=== PATIENT | male | born 1935 | race Caucasian/White ===

== ENCOUNTER → 2017-09-21 | Outpatient (REF) | payer MEDICARE, OTHER ==
[~2017-09-21] MED LIST: ACE325 PO; ADV500/50 INH; ALB0.5 INH; ALB18R INH; AMIT-104 PO; AMLO-101 PO; AMLO-99 PO; ASPI-1471 PO; ASPI-715 PO; AZIT-1 PO; AZIT-17 PO; BEN10 PO; BENA40TA51 PO; BLOO-1061 MC; BLOO-292 MC; CEF300 PO; CEFU250 PO; COM14R INH; DIPH-740 PO; FEXO-67 PO; FEXO30TA36 PO; FLU100 PO; FLUC100T35 PO; FLUR IH; FLUT1DIS29 IH; GABA-547 PO; GABA-549 PO; GLIM2TAB43 PO; GLIM4TAB50 PO; GUAI600T57 PO; GUALA600 PO; H2O24 TOP; HYDR12.558 PO; IPRA3AMP21 IH; LEV500 PO; LOR5/325 PO; LOSA-57 PO; MECL25TA9 PO; METF-420 PO; METXR500 PO; PIR14R INH; PIRB14AE3 IH; PRE10 PO; PRE20 PO; PRED20TA6 PO; ROBC PO; SAL50R PO; SIMV-49 PO; SITA1TAB13 PO; ZOL5 PO; [UNRECOGNIZED DRUG - CODE] PO
== END ==
LOC: ZZSENDIN 14:41
PROVIDERS: ATTEND Family Medicine
DX: Z01.812 Encounter for preprocedural laboratory examination (principal)
CPT/HCPCS: 81001

== ENCOUNTER 2017-10-12 01:10 | Inpatient (IN) | payer MEDICARE, OTHER ==
[2017-10-12] VITALS (10 sets, daily range): BP systolic 119–159; BP diastolic 71–89
[~2017-10-12] VITALS: Ht 180.3 cm; Wt 77.7 kg
[~2017-10-12 01:10] MED LIST changes: +NOR10 PO
[2017-10-12] MEDS ORDERED: THROMBIN (BOVINE) 20,000 UNIT VIAL ONE ×2 (06:26→14:40)
[2017-10-12] MEDS ORDERED: LIDOCAINE/SOD BICARB 8.4% SYR ID ONE (09:10)
[2017-10-12] MEDS ORDERED: FAMOTIDINE 20 MG TAB PO ONE (09:10)
[2017-10-12] MEDS ORDERED: MIDAZOLAM 2 MG/2 ML VIAL IVP PRN (09:10)
[2017-10-12] MEDS ORDERED: NORMOSOL R SOLN(*) 1000 ML BAG 1,000 ML IV PRN (09:10)
[2017-10-12] MEDS ORDERED: CLINDAMYCIN(*) 900 MG/NS 50 ML 50 ML IVPB ONE (09:10)
[2017-10-12] MEDS ORDERED: ONDANSETRON 4 MG/2 ML VIAL ONE (13:16)
[2017-10-12] MEDS ORDERED: MIDAZOLAM 2 MG/2 ML VIAL ONE (13:16)
[2017-10-12] MEDS ORDERED: ROCURONIUM BROM 10 MG/ML 10 ML ONE (13:16)
[2017-10-12] MEDS ORDERED: DEXAMETHASONE SOD PHOS 10MG/ML ONE (13:16)
[2017-10-12] MEDS ORDERED: PROPOFOL EMUL(*) 10MG/ML 20 ML 20 ML ONE (13:16)
[2017-10-12] MEDS ORDERED: LIDOCAINE MPF 1% 5 ML VIAL ONE (13:16)
[2017-10-12] MEDS ORDERED: fentaNYL CITR 100 MCG/2 ML AMP ONE ×4 (13:16→18:56)
[2017-10-12] MEDS ORDERED: ALBUTEROL/IPRATROPIUM 3 ML NEB ONE ×2 (13:22→18:34)
[2017-10-12] MEDS ORDERED: BUPIVACAIN 0.25% INJ 50ML VIAL ONE (14:38)
[2017-10-12] MEDS ORDERED: HYDROCORTISONE 100 MG/2 ML IVP ONE (15:30)
--- NOTE | 2017-10-12 16:58 | RADIOLOGY IMAGING REPORT ---
[place] [facility] [place]IENT NAME: Ever Teixeira : 1935 MR: [id number] V: [id number] EXAM DATE: ORDERING PHYSICIAN: JULI HANEY TECHNOLOGIST: Location: [facility] Patient: Ever Teixeira : 1935 Visit/Account:[id number] Date of Sevice: 10/12/2017 Exam type: LUMBAR SPINE 1 VIEW History: L2-5 LAMINECTOMIES Comparison: MR lumbar spine August 29, 2017 Findings: A single lateral intraoperative view of the lumbar spine was submitted for interpretation. There is at least moderate disc space narrowing from L2 to S1. Metallic probe projects over the posterior spi nous process of L4. Ray-Shamika sponge markers project over the dorsal soft tissues lower lumbar spine o n this intraoperative study IMPRESSION: 1. As above Report Dictated By: Verna Apodaca MD at 10/12/2017 4:53 PM Report E-Signed By: Verna Apodaca MD at 10/12/2017 4:55 PM WSN:[id number]
[2017-10-12] MEDS ORDERED: SUGAMMADEX SOD 200 MG/2 ML SDV ONE (18:23)
[2017-10-12] MEDS ORDERED: HYDROmorphone HCL 2 MG/ML SDV ONE (18:56)
[2017-10-12] MEDS ORDERED: ACETAMINOPHEN 500 MG TAB PO PRN ×2 (19:20→22:00)
[2017-10-12] MEDS ORDERED: MAGNESIUM HYDROXIDE* 30ML UDCP PO PRN (19:20)
[2017-10-12] MEDS ORDERED: ACETAMINOPHEN(*)1000 MG/100 ML 100 ML IVPB PRN ×2 (19:20→22:00)
[2017-10-12] MEDS ORDERED: LR(*) 1000 ML BAG 1,000 ML IV PRN (19:20)
[2017-10-12] MEDS ORDERED: diphenhydrAMINE 25 MG CAP PO PRN (19:20)
[2017-10-12] MEDS ORDERED: ONDANSETRON 4 MG/2 ML VIAL IVP PRN (19:20)
[2017-10-12] MEDS ORDERED: FLUSH 10 ML SYR IVP PRN (19:20)
[2017-10-12] MEDS ORDERED: BISACODYL 10 MG SUPP PR PRN (19:20)
--- NOTE | 2017-10-12 21:32 | Hospitalist Progress Note ---
Subjective Progress Notes Subjective Patient seen post-op. Reviewed PMHx (HTN, COPD, type 2 DM) and medications. At present he reports pain in surgical site. He denies any dyspnea/CP. Physical Exam Vital Signs Date Time Temp Pulse Resp B/P (MAP) Pulse Ox O2 Delivery O2 Flow Rate FiO2 10/12/17 19:44 81 16 94 10/12/17 18:37 Nasal Cannula 8.0 10/12/17 12:49 98.0 159/87 (111) Intake and Output 10/13/17 07:01 Intake Total 1300 ml Output Total 50 ml Balance 1250 ml Intake IV Total 1300 ml Output Estimated Blood Loss 50 ml General Appearance: Alert, Awake Cardiovascular: Regular Rate and Rhythm Respiratory: Clear to Auscultation (a few scattered rhonchi) Item Value Date Time Whole Blood Glucose 163 mg/DL H 10/12/17 1324 Assessment and Plan Problems: (1) Type 2 diabetes mellitus Status: Chronic Assessment & Plan: Will place on ADA diet, resume his metformin and glimepiride , monitor glucoses, and use SSI as needed. (2) COPD (chronic obstructive pulmonary disease) Status: Chronic Assessment & Plan: Continue his Advair and albuterol. (3) Essential hypertension Status: Chronic Assessment & Plan: Monitor BPs and resume his amlodipine, losartan, HCTZ as needed. RHONDA JONES MD Oct 12, 2017 21:32
[2017-10-12] MEDS ORDERED: ALBUTEROL SULFATE 90 MCG/ACT 8.5 GM HNH INH PRN (21:35)
[2017-10-12] MEDS ORDERED: INSULIN HUM LISPRO 100 UN/ML 3 ML VIAL SUBQ ONE (21:56)
[2017-10-12] MEDS: DOCUSATE SODIUM 100 MG CAP PO SCH (22:04)
[2017-10-12] MEDS: INSULIN HUM LISPRO 100 UN/ML 3 ML VIAL SUBQ PRN (22:07)
[2017-10-12] MEDS: APAP/HYDROCODONE 325/5 TAB PO PRN (23:02)
[2017-10-12] MEDS: CLINDAMYCIN(*) 900 MG/NS 50 ML 50 ML IVPB SCH (23:02)
[2017-10-12] MEDS ORDERED: CLINDAMYCIN 900 MG/6 ML 900 MG in DEXTROSE 5% 50 ML BAG 50 ML IVPB SCH (23:30)
[2017-10-13] VITALS (11 sets, daily range): BP systolic 126–165; BP diastolic 66–93; BMI 23.9
[2017-10-13] MEDS: HYDROmorphone HCL 2 MG/ML SDV IVP PRN ×3 (02:15→23:58)
[2017-10-13] MEDS: BENZOCAINE/MENTHOL 1 EACH LOZG PO PRN ×2 (03:53→19:55)
[2017-10-13] MEDS: ALBUTEROL/IPRATROPIUM 3 ML NEB NEB SCH ×3 (04:10→16:57)
[2017-10-13] MEDS: SALMETEROL/FLUTIC 500/50 1 INH INH SCH ×2 (04:10→16:57)
[2017-10-13] MEDS ORDERED: ALBUTEROL SULFATE 90 MCG/ACT 8.5 GM HNH INH PRN (07:15)
[2017-10-13] MEDS: DOCUSATE SODIUM 100 MG CAP PO SCH ×4 (08:29→21:23)
[2017-10-13] MEDS: GABAPENTIN 300 MG CAP PO SCH ×3 (08:29→21:23)
[2017-10-13] MEDS: GLIMEPIRIDE 2 MG TAB PO SCH (08:29)
[2017-10-13] MEDS: HYDROCHLOROTHIAZIDE 25 MG TAB PO SCH (08:30)
[2017-10-13] MEDS: amLODIPine BESYL(*) 5 MG TAB PO SCH (08:30)
[2017-10-13] MEDS: LOSARTAN POTASSIUM 50 MG TAB PO SCH (08:30)
[2017-10-13] MEDS: INSULIN HUM LISPRO 100 UN/ML 3 ML VIAL SUBQ PRN ×4 (08:30→21:25)
[2017-10-13] MEDS: CLINDAMYCIN(*) 900 MG/NS 50 ML 50 ML IVPB SCH ×2 (08:42→15:41)
[2017-10-13] MEDS ORDERED: metFORMIN HCL 500 MG TAB PO SCH (10:30)
--- NOTE | 2017-10-13 14:31 | Hospitalist Progress Note ---
Subjective Progress Notes Subjective Mr. Teixeira is an 82 y.o. male with PMHx of HTN, COPD, type 2 DM, Spinal stenosis and medications reviewed. He underwent spinal surgery by Dr. Cabezas. He tolerated the surgical procedure and anesthesia well. He received PT today and he ambulated well with minimal pain. He lives alone 25 miles away and he is concerned about being d/c'd in am. Patient Complains of: Neurological: Weakness, No: Confusion, Dizziness, Slurred Speech Cardiovascular: No: Chest Pain, Palpitations Respiratory: No: Cough, Congestion, Shortness of Breath, Wheezing Gastrointestinal: No Nausea, No Vomiting Genitourinary: No Dysuria, No Hematuria Musculoskeletal: Pain, No: Sprain, Strain, Impaired Mobility Physical Exam Vital Signs Date Time Temp Pulse Resp B/P (MAP) Pulse Ox O2 Delivery O2 Flow Rate FiO2 10/13/17 11:17 98.6 76 16 130/73 (92) 93 Nasal Cannula 2.0 Intake and Output 10/14/17 07:00 Intake Total 480 ml Balance 480 ml Intake Oral 480 ml # Voids 2 General Appearance: Alert, Awake, No Acute Distress Neuro: No Gross deficits Eyes: PERRLA ENT: Normal Neck: No Masses Cardiovascular: Regular Rate and Rhythm Respiratory: No Respiratory Distress GI: Soft and Non-Tender Extremities: Soft and Non Tender Integumentary: Skin Intact without Lesion / Mass Psych: Alert & Oriented X3, Appropriate Mood & Affect Assessment and Plan Problems: (1) Type 2 diabetes mellitus Status: Chronic Assessment & Plan: Will place on ADA diet, resume his metformin and glimepiride , monitor glucoses, and use SSI as needed. 10/13: His BS was high this am 218. He has received steroids and that could be the reason for his high BS. I will change his Sliding scale to step2 and keep his Metformin ER 1gm at hs. He has h/o hypoglycemia with high Metformin dose. Anticipated d/c in am but patient is concerned about going home soon. (2) COPD (chronic obstructive pulmonary disease) Status: Chronic Assessment & Plan: Continue his Advair and albuterol. (3) Essential hypertension Status: Chronic Assessment & Plan: Monitor BPs and resume his amlodipine, losartan, HCTZ as needed. Time Spent on Plan of Care: < 30 min Copies to: JULI CABEZAS MD; QUANG DENISE DO Exam Sepsis Risk: No Definite Risk DANA ARNOLD MD Oct 13, 2017 14:31
[2017-10-13] MEDS: ALBUTEROL 2.5 MG/3 ML NEB NEB PRN (20:10)
[2017-10-13] MEDS: metFORMIN HCL XR 500 MG TABCR PO SCH ×2 (21:00→21:24)
[2017-10-13] MEDS: NORTRIPTYLINE HCL 10 MG CAP PO SCH (21:23)
[2017-10-13] MEDS ORDERED: DOCUSATE SODIUM 100 MG CAP PO ONE (21:36)
[2017-10-14] MEDS: BENZOCAINE/MENTHOL 1 EACH LOZG PO PRN ×2 (00:01→22:58)
[2017-10-14 05:37] VITALS: BP 169/84
[2017-10-14] MEDS: SALMETEROL/FLUTIC 500/50 1 INH INH SCH ×2 (05:40→17:04)
[2017-10-14] MEDS: ALBUTEROL/IPRATROPIUM 3 ML NEB NEB SCH ×3 (05:40→17:04)
[2017-10-14] MEDS: APAP/HYDROCODONE 325/5 TAB PO PRN ×3 (05:47→16:17)
[2017-10-14 07:44] VITALS: BP 149/71
[2017-10-14] MEDS: INSULIN HUM LISPRO 100 UN/ML 3 ML VIAL SUBQ PRN ×3 (08:12→20:53)
[2017-10-14] MEDS: GLIMEPIRIDE 2 MG TAB PO SCH (08:54)
[2017-10-14] MEDS: LOSARTAN POTASSIUM 50 MG TAB PO SCH (08:54)
[2017-10-14] MEDS: GABAPENTIN 300 MG CAP PO SCH ×3 (08:54→20:39)
[2017-10-14] MEDS: HYDROCHLOROTHIAZIDE 25 MG TAB PO SCH (08:54)
[2017-10-14] MEDS: DOCUSATE SODIUM 100 MG CAP PO SCH ×2 (08:55→20:39)
[2017-10-14] MEDS: amLODIPine BESYL(*) 5 MG TAB PO SCH (08:55)
--- NOTE | 2017-10-14 13:27 | RADIOLOGY IMAGING REPORT ---
FACILITY: [facility] - [place] PATIENT NAME: Ever Teixeira : 1935 MR: [id number] V: [id number] EXAM DATE: ORDERING PHYSICIAN: JULI HANEY TECHNOLOGIST: Location: [facility] Patient: Ever Teixeira : 1935 Visit/Account:[id number] Date of Sevice: 10/14/2017 EXAMINATION: MRI lumbar spine without IV contrast HISTORY: Right leg numb and weak postop. Surgery 2 days ago. COMPARISON: Lumbar spine MRI from 08/29/2017. TECHNIQUE: Multi-planar, multi-sequence lumbar spine MRI was performed without intravenous contrast administration. FINDINGS: Alignment: Mild leftward curvature of the lumbar spine. Grade 1 anterolisthesis at L4-5 measuring 4 mm is unchanged. Vertebral marrow signal: Mild degenerative endplate changes and a few small Schmorl's nodes. Distal thoracic cord: Negative. Conus: negative, terminates at the mid L1 level. Cauda equina: Negative. Paravertebral soft tissues: Postoperative changes from L2 through L4 in the posterior soft tissues. Visualized abdominal and pelvic structures: There is a right renal cyst partly visualized. There may be an internal septation versus adjacent cyst, this is incompletely visualized. Disc spaces: There is disc desiccation of the visualized spine. Lower thoracic spine: Normal. L1-2: Minimal concentric disc bulge and bilateral facet hypertrophy without significant central canal or foraminal stenosis, unchanged. L2-3: Partial bilateral L2 laminectomies are new. Mild disc space narrowing with a mild disc bulge e ccentric to the left. Central canal stenosis has resolved. Mild right and moderate to severe left f oraminal stenosis is unchanged. L3-4: Bilateral L3 laminectomies are new. There is disc space narrowing with a moderate concentric d isc bulge and superimposed right paracentral disc extrusion with superior extension. Bilateral facet hypertrophy. The right facet synovial cyst has been resected. There is patchy fluid in the laminec henna bed and right posterior epidural region which contributes to residual moderate to severe central canal stenosis. Mild bilateral lateral recess stenosis, moderate left and severe right foraminal st enosis are unchanged. L4-5: Bilateral L4 laminectomies are new. Mild disc space narrowing with a moderate disc bulge eccen tric to the right and bilateral facet hypertrophy. Ill-defined fluid in the laminectomy bed. Centra l canal stenosis is improved. There is mild residual bilateral lateral recess stenosis, mild left an d moderate to severe right foraminal stenosis are unchanged. L5-S1: Disc space narrowing with posterior bony spurring and a mild disc bulge eccentric to the left. Bilateral facet hypertrophy. Mild right and moderate left foraminal stenosis without significant c entral canal stenosis, unchanged. IMPRESSION: 1. Posterior decompression from L2 through L4. Patchy fluid in the laminectomy bed at the L3 and L4 levels is likely postoperative seroma and/or hematoma, and contributes to residual moderate to sever e spinal stenosis at the L3-4 level. No residual spinal stenosis at L2-3 or L4-5. 2. Degenerative disc disease and facet arthropathy is otherwise unchanged. 3. Mild degenerative levoscoliosis of the lumbar spine and grade 1 degenerative anterolisthesis at L 4-5 measuring 4 mm, unchanged. 4. Potential complex right renal cyst versus 2 adjacent cysts, incompletely visualized. Renal ultra sound is recommended for further evaluation. Report Dictated By: Arlene Trujillo MD at 10/14/2017 12:18 PM Report E-Signed By: Arlene Trujillo MD at 10/14/2017 1:24 PM WSN:[id number]
[2017-10-14 15:04] VITALS: BP 118/77
--- NOTE | 2017-10-14 16:23 | Hospitalist Progress Note ---
Subjective Progress Notes Subjective Mr. Teixeira is an 82 y.o. male with PMHx of HTN, COPD, type 2 DM, Spinal stenosis and medications reviewed. He underwent spinal surgery by Dr. Cabezas. He tolerated the surgical procedure and anesthesia well. He received PT today and he ambulated well with minimal pain. He lives alone 25 miles away and he is concerned about being d/c'd in am. 10/14: Patient developed low grade fever and he was scheduled to have lumber spine MRI to evaluate ant hematoma or compression of his nerve because he c/o numbness in his leg. He was evaluated by Dr. Cabezas and obtained MRI and kept the patient for inpatient status. Patient Complains of: Neurological: Weakness, No: Dizziness Cardiovascular: No: Chest Pain, Palpitations Respiratory: No: Cough, Shortness of Breath Gastrointestinal: No Nausea, No Vomiting Genitourinary: No Dysuria, No Hematuria Musculoskeletal: Pain, Impaired Mobility, No: Sprain, Strain Physical Exam Vital Signs Date Time Temp Pulse Resp B/P (MAP) Pulse Ox O2 Delivery O2 Flow Rate FiO2 10/14/17 15:20 84 10/14/17 15:10 Nasal Cannula 1.0 10/14/17 15:04 98.1 99 12 118/77 (91) Intake and Output 10/15/17 07:00 Intake Total 160 ml Balance 160 ml Intake Oral 160 ml General Appearance: Alert, Awake, No Acute Distress, Other (low grade fever) Neuro: No Gross deficits Eyes: PERRLA ENT: Normal Cardiovascular: Regular Rate and Rhythm Respiratory: No Respiratory Distress GI: Soft and Non-Tender Extremities: Soft and Non Tender Psych: Alert & Oriented X3 Assessment and Plan Problems: (1) Low grade fever Status: Acute Assessment & Plan: He revealed L3-4 area with hematoma/seroma causing moderate to severe stenosis. his low grade fever could be due to his inflammatory process at L3-4 level I will watch closely and get CBC in am and BMP (2) Type 2 diabetes mellitus Status: Chronic Assessment & Plan: Will place on ADA diet, resume his metformin and glimepiride , monitor glucoses, and use SSI as needed. 10/13: His BS was high this am 218. He has received steroids and that could be the reason for his high BS. I will change his Sliding scale to step2 and keep his Metformin ER 1gm at hs. He has h/o hypoglycemia with high Metformin dose. Anticipated d/c in am but patient is concerned about going home soon. 2/2: His BS is in 160's and I will continue his present management (3) COPD (chronic obstructive pulmonary disease) Status: Chronic Assessment & Plan: Continue his Advair and albuterol. 2/2: I will continue the same management (4) Essential hypertension Status: Chronic Assessment & Plan: Monitor BPs and resume his amlodipine, losartan, HCTZ as needed. 2/2: I will continue the same management (5) S/P laminectomy Status: Acute Assessment & Plan: He tolerated the procedure but he still c/o numbness in his legtoday. He was evaluated by Dr. Cabezas and MRI of L-spine was done and revealed hematoma/seroma compressing at L3-4. He couls have low grade fever from mild inflammation. Time Spent on Plan of Care: < 30 min Copies to: JULI CABEZAS MD; QUANG DENISE DO Exam Sepsis Risk: No Definite Risk DANA ARNOLD MD Oct 14, 2017 16:23
[2017-10-14] MEDS ORDERED: MAGNESIUM HYDROXIDE* 30ML UDCP PO PRN (17:10)
[2017-10-14 19:25] VITALS: BP 103/68
[2017-10-14] MEDS: NORTRIPTYLINE HCL 10 MG CAP PO SCH (20:39)
[2017-10-14] MEDS: oxyCODONE HCL 5 MG CAP PO PRN (20:39)
[2017-10-14] MEDS: metFORMIN HCL XR 500 MG TABCR PO SCH ×2 (20:40→20:46)
[2017-10-14] MEDS: ALBUTEROL 2.5 MG/3 ML NEB NEB PRN (20:57)
[2017-10-14 22:51] VITALS: BP 165/89
[2017-10-14] MEDS: HYDROmorphone HCL 2 MG/ML SDV IVP PRN (22:58)
[2017-10-15] MEDS: APAP/HYDROCODONE 325/5 TAB PO PRN ×4 (03:00→22:29)
[2017-10-15 03:03] VITALS: BP 146/69
[2017-10-15] MEDS: ALBUTEROL 2.5 MG/3 ML NEB NEB PRN (03:10)
[2017-10-15] MEDS: ALBUTEROL/IPRATROPIUM 3 ML NEB NEB SCH ×3 (05:16→17:06)
[2017-10-15] MEDS: SALMETEROL/FLUTIC 500/50 1 INH INH SCH ×2 (05:16→17:06)
[2017-10-15 05:51] LABS: PLATELET COUNT, AUTOMATED 238 K/uL (150-450)
[2017-10-15 08:25] VITALS: BP 137/72
[2017-10-15] MEDS: LOSARTAN POTASSIUM 50 MG TAB PO SCH (09:00)
[2017-10-15] MEDS: amLODIPine BESYL(*) 5 MG TAB PO SCH (09:00)
[2017-10-15] MEDS: HYDROCHLOROTHIAZIDE 25 MG TAB PO SCH (09:07)
[2017-10-15] MEDS: GLIMEPIRIDE 2 MG TAB PO SCH (09:07)
[2017-10-15] MEDS: DIAZEPAM 5 MG TAB PO PRN ×2 (09:07→17:33)
[2017-10-15] MEDS: oxyCODONE HCL 5 MG CAP PO PRN (09:07)
[2017-10-15] MEDS: DOCUSATE SODIUM 100 MG CAP PO SCH ×2 (09:08→21:35)
[2017-10-15] MEDS: GABAPENTIN 300 MG CAP PO SCH ×3 (09:09→21:35)
--- NOTE | 2017-10-15 09:56 | Hospitalist Progress Note ---
Subjective Progress Notes Subjective This patient was admitted for lumbar surgery. He had no acute events overnight. Patient Complains of: Cardiovascular: No: Chest Pain Respiratory: No: Shortness of Breath Physical Exam Vital Signs Date Time Temp Pulse Resp B/P (MAP) Pulse Ox O2 Delivery O2 Flow Rate FiO2 10/15/17 08:25 98.2 99 16 137/72 (93) 90 Nasal Cannula 2.0 Intake and Output 10/16/17 07:00 Intake Total 460 ml Balance 460 ml Intake Oral 460 ml # Voids 1 Cardiovascular: Regular Rate and Rhythm Respiratory: Clear to Auscultation Result Diagram: 10/15/17 0537 10/15/1737 Assessment and Plan Problems: (1) Low grade fever Status: Acute Assessment & Plan: He had an isolated fever yesterday. A CT scan showed a seroma around his surgical site. His WBC is normal. (2) Type 2 diabetes mellitus Status: Chronic Assessment & Plan: He is on chronic treatment with metformin and glyburide. We have also had him on sliding scale level #2. (3) COPD (chronic obstructive pulmonary disease) Status: Chronic Assessment & Plan: He is on chronic treatment with Advair and albuterol. (4) Essential hypertension Status: Chronic Assessment & Plan: He is on chronic treatment with amlodipine, losartan, and hydrochlorothiazide. Exam Sepsis Risk: No Definite Risk DESIRAE YIN DO Oct 15, 2017 09:56
[2017-10-15] MEDS: methylPREDNIS 4 MG TAB PO SCH ×4 (10:58→21:35)
[2017-10-15] MEDS: INSULIN HUM LISPRO 100 UN/ML 3 ML VIAL SUBQ PRN ×3 (12:11→21:37)
[2017-10-15] MEDS ORDERED: SALINE 0.65% NAS SPR 44 ML BTL ONE (14:17)
[2017-10-15 14:22] VITALS: BP 110/62
[2017-10-15 19:31] VITALS: BP 137/77
[2017-10-15 20:17] VITALS: Ht 180.3 cm; Wt 77.7 kg
[2017-10-15] MEDS: NORTRIPTYLINE HCL 10 MG CAP PO SCH (21:35)
[2017-10-15] MEDS: metFORMIN HCL XR 500 MG TABCR PO SCH (21:36)
[2017-10-15 22:36] VITALS: BP 154/70
[2017-10-16] MEDS: APAP/HYDROCODONE 325/5 TAB PO PRN ×3 (02:29→20:16)
[2017-10-16] MEDS: DIAZEPAM 5 MG TAB PO PRN ×3 (02:29→20:17)
[2017-10-16 02:33] VITALS: BP 138/81
[2017-10-16] MEDS: ALBUTEROL/IPRATROPIUM 3 ML NEB NEB SCH ×3 (04:07→19:24)
[2017-10-16] MEDS: SALMETEROL/FLUTIC 500/50 1 INH INH SCH ×2 (04:08→19:24)
[2017-10-16] MEDS: HYDROCHLOROTHIAZIDE 25 MG TAB PO SCH (08:58)
[2017-10-16] MEDS: GABAPENTIN 300 MG CAP PO SCH ×3 (08:58→20:17)
--- NOTE | 2017-10-16 08:58 | Hospitalist Progress Note ---
Subjective Progress Notes Subjective No cp/sob, currently. He got a breathing treatment this morning that helped him cough up some mucus. Physical Exam Vital Signs Date Time Temp Pulse Resp B/P (MAP) Pulse Ox O2 Delivery O2 Flow Rate FiO2 10/16/17 04:09 98 10/16/17 04:09 Nasal Cannula 1.0 10/16/17 04:08 93 10/16/17 04:08 16 10/16/17 02:33 98.5 138/81 (100) General Appearance: Alert, Awake, No Acute Distress Cardiovascular: Regular Rate and Rhythm Respiratory: Clear to Auscultation Result Diagram: 10/15/1753610/15/17536 Assessment and Plan Problems: (1) Type 2 diabetes mellitus Status: Chronic Assessment & Plan: He is on chronic treatment with metformin and glyburide. We have also had him on sliding scale level #2. Glucose ranging from 161-272, but mostly below 200. (2) Low grade fever Status: Resolved Assessment & Plan: He had an isolated fever on 10/14. A CT scan showed a seroma around his surgical site. His WBC is normal. (3) COPD (chronic obstructive pulmonary disease) Status: Chronic Assessment & Plan: He is on chronic treatment with Advair and albuterol. (4) Essential hypertension Status: Chronic Assessment & Plan: He is on chronic treatment with amlodipine, losartan, and hydrochlorothiazide. Exam Sepsis Risk: No Definite Risk MARGARITO SUH MD Oct 16, 2017 08:58
[2017-10-16 09:00] VITALS: BP 133/85
[2017-10-16] MEDS ORDERED: methylPREDNIS 4 MG TAB PO SCH ×2 (09:00→21:00)
[2017-10-16] MEDS: LOSARTAN POTASSIUM 50 MG TAB PO SCH (09:00)
[2017-10-16] MEDS: DOCUSATE SODIUM 100 MG CAP PO SCH ×2 (09:00→20:16)
[2017-10-16] MEDS: amLODIPine BESYL(*) 5 MG TAB PO SCH (09:00)
[2017-10-16] MEDS: GLIMEPIRIDE 2 MG TAB PO SCH (09:00)
[2017-10-16] MEDS: INSULIN HUM LISPRO 100 UN/ML 3 ML VIAL SUBQ PRN ×4 (09:03→20:06)
[2017-10-16] MEDS: POLYETHYLENE GLYCOL 17 GM PKT PO SCH (10:30)
[2017-10-16] MEDS: methylPREDNIS 4 MG TAB PO SCH ×2 (12:44→17:25)
[2017-10-16 15:01] VITALS: BP 133/77
[2017-10-16 20:08] VITALS: BP 135/67
[2017-10-16] MEDS: metFORMIN HCL XR 500 MG TABCR PO SCH (20:18)
[2017-10-16] MEDS: NORTRIPTYLINE HCL 10 MG CAP PO SCH (20:19)
[2017-10-16] MEDS: oxyCODONE HCL 5 MG CAP PO PRN (22:52)
[2017-10-17] MEDS: APAP/HYDROCODONE 325/5 TAB PO PRN ×2 (00:57→11:20)
[2017-10-17] MEDS: ALBUTEROL/IPRATROPIUM 3 ML NEB NEB SCH ×2 (05:10→10:17)
[2017-10-17] MEDS: SALMETEROL/FLUTIC 500/50 1 INH INH SCH (05:10)
[2017-10-17 07:53] VITALS: BP 154/74
--- NOTE | 2017-10-17 08:56 | Hospitalist Progress Note ---
Subjective Progress Notes Subjective No current respiratory complaints. Glucoses moderately elevated. Physical Exam Vital Signs Date Time Temp Pulse Resp B/P (MAP) Pulse Ox O2 Delivery O2 Flow Rate FiO2 10/17/17 07:53 97.8 81 16 154/74 (100) 92 Room Air 10/17/17 05:13 1.0 General Appearance: Alert, Awake Cardiovascular: Regular Rate and Rhythm Respiratory: Clear to Auscultation (diminished slightly bilaterally) Extremities: Warm, Perfused Result Diagram: 10/15/17 0537 10/15/17 0537 Item Value Date Time Whole Blood Glucose 248 mg/DL H 10/16/172002 Whole Blood Glucose 278 mg/DL H 10/16/17 1716 Whole Blood Glucose 221 mg/DL H 10/16/17 1201 Whole Blood Glucose 183 mg/DL H 10/16/17 0650 Assessment and Plan Problems: (1) Type 2 diabetes mellitus Status: Chronic Assessment & Plan: He is on chronic treatment with metformin and glyburide. We have also had him on sliding scale level #2. Glucoses moderately elevated due to steroids. This should improve as he is weaned off the Medrol. (2) Low grade fever Status: Resolved Assessment & Plan: He had an isolated fever on 10/14. A CT scan showed a seroma around his surgical site. His WBC is normal. No recurrent fever. (3) COPD (chronic obstructive pulmonary disease) Status: Chronic Assessment & Plan: Appears stable. He is on chronic treatment with Advair and albuterol. (4) Essential hypertension Status: Chronic Assessment & Plan: Adequately controlled. He is on chronic treatment with amlodipine, losartan, and hydrochlorothiazide. Exam Sepsis Risk: No Definite Risk RHONDA JONES MD Oct 17, 2017 08:56
[2017-10-17] MEDS ORDERED: methylPREDNIS 4 MG TAB PO SCH ×2 (09:00→12:00)
[2017-10-17] MEDS: LOSARTAN POTASSIUM 50 MG TAB PO SCH (09:00)
[2017-10-17] MEDS: HYDROCHLOROTHIAZIDE 25 MG TAB PO SCH (09:00)
[2017-10-17] MEDS: POLYETHYLENE GLYCOL 17 GM PKT PO SCH (09:01)
[2017-10-17] MEDS: GLIMEPIRIDE 2 MG TAB PO SCH (09:04)
[2017-10-17] MEDS: amLODIPine BESYL(*) 5 MG TAB PO SCH (09:07)
[2017-10-17] MEDS: GABAPENTIN 300 MG CAP PO SCH (09:08)
[2017-10-17] MEDS: DOCUSATE SODIUM 100 MG CAP PO SCH (09:08)
[2017-10-17] MEDS: INSULIN HUM LISPRO 100 UN/ML 3 ML VIAL SUBQ PRN (09:09)
[2017-10-17] MEDS: DIAZEPAM 5 MG TAB PO PRN (11:20)
[2017-10-18] MEDS ORDERED: methylPREDNIS 4 MG TAB PO SCH ×2 (09:00→12:00)
--- NOTE | 2017-10-18 09:15 | OPERATIVE REPORT 1 ---
EVENT DATE: October 12, 2017 SURGEON: Anule Cabezas MD ANESTHESIOLOGIST: Kalpesh Aguiar MD ANESTHESIA: General endotracheal. SYSTEMS MGR: Eugene Garcia PA-C PREOPERATIVE DIAGNOSIS L2-3, L3-4, L4-5 spinal stenosis. POSTOPERATIVE DIAGNOSIS L2-3, L3-4, L4-5 spinal stenosis. PROCEDURE PERFORMED L2 to L5 laminectomy. IV FLUIDS 1400 mL. ESTIMATED BLOOD LOSS 200 mL. IMPLANTS None. SPECIMENS None. DRAINS None. COMPLICATIONS None. DISPOSITION Post anesthesia care unit. INDICATION FOR SURGERY Mr. Teixeira is an 82-year-old gentleman who presented with significant pain, numbness and tingling down bilateral lower extremities plus significant decrease in walking tolerance and weakness in bilateral lower extremities. His physical examination was essentially normal, but his imaging studies showed severe spinal stenosis at L2-3, L3-4 and L4-5. He had a previous L5-S1 decompression, and there was no significant neural element compression at that level. Secondary to ongoing symptoms, Mr. Teixeira was offered and elected to undergo L2 to L5 laminectomy. Prior to surgery, I explained in detail to the patient the possible risks of surgery, including the risk of , blindness, sexual dysfunction, bleeding, infection, CSF leak, persistent and/or worsening pain, autonomic nervous system dysfunction, sexual dysfunction and other unforeseen medical and surgical complications. He voiced an understanding. DESCRIPTION OF PROCEDURE On the date of surgery, the patient was met in the preoperative hold area, and all questions were answered. Operative site was identified and marked by myself. The patient was then taken in good condition to the operating room, and after succumbing to anesthesia, was placed in the prone position on a Adrien table. He was prepped and draped in a standard sterile orthopedic fashion, taking care to maintain appropriate perfusion pressures during anesthesia and taking care to appropriately pad all bony protuberances and soft tissues in the standard fashion. Preoperative antibiotics were administered according to the appropriate timing schedule, and then a final time out was undertaken by members of the operating team to confirm correct patient, correct levels and correct surgery. An incision was made over the intended spinal levels, and sharp dissection was taken down to the posterior elements. Soft tissues were elevated off the posterior elements in a subperiosteal manner, and intraoperative imaging was used to confirm appropriate spinal level. A Leksell rongeur was used to remove the spinous processes of L2, L3 and L4, and the laminas were then thinned bilaterally using rongeurs. A 2-0 curette was used to undermine the insertion of the ligamentum flavum from the inferior aspect of the L4 lamina. Once we entered the canal, a Webb was used to separate the dura from surrounding bone and soft tissue prior to use of the Kerrison punch. A midline decompression was performed utilizing a 4-0 and 3-0 Kerrison rongeur from the inferior aspect of the L4 lamina to the superior aspect of the L2 lamina. Bilateral lateral recess decompressions were then performed again using 3-0 and 4-0 Kerrison rongeurs until adequate lateral recess decompression was obtained. Bilateral foraminotomies were then performed, again utilizing 3- 0 and 4-0 Kerrison rongeurs to open up the foramina of the L2, L3 and L4 nerve roots. Once we were convinced that an adequate decompression had been achieved , meticulous hemostasis was obtained, and the wound was irrigated with copious sterile saline solution. The wound was then closed in layers using interrupted sutures for the deep fascia, inverted interrupted sutures for the superficial fascia and then a running subcuticular skin stitch. Sponge and instrument counts were correct x 2. Mr. Teixeira will remain in the hospital until he meets discharge criteria, passes physical therapy, etc. He will then follow up in my clinic in two weeks time for wound check and examination. DIONISIO
[2017-10-19] MEDS ORDERED: methylPREDNIS 4 MG TAB PO SCH (09:00)
[2017-10-20] MEDS ORDERED: methylPREDNIS 4 MG TAB PO SCH (09:00)
== END 2017-10-17 11:20 | DRG 516 ==
LOC: OR 01:10 → MED 19:38 → OBSVTOIN 10-14 → INTOOBSV 10-15 07:53 → UNDODISIN 10-17 11:20
PROVIDERS: ADMIT Orthopaedic Surgery; ATTEND Orthopaedic Surgery
PROC: 01NB0ZZ Release Lumbar Nerve, Open Approach (ICD-10-PCS; principal; 2017-10-14)
DX: M48.062 Spinal stenosis, lumbar region with neurogenic claudication (principal); G97.64 Postprocedural seroma of a nervous system organ or structure following other procedure; M43.16 Spondylolisthesis, lumbar region; M54.16 Radiculopathy, lumbar region; M71.38 Other bursal cyst, other site; E11.9 Type 2 diabetes mellitus without complications; E78.5 Hyperlipidemia, unspecified; J44.9 Chronic obstructive pulmonary disease, unspecified; R50.82 Postprocedural fever; I10 Essential (primary) hypertension; Y83.8 Other surgical procedures as the cause of abnormal reaction of the patient, or of later complication, without mention of misadventure at the time of the procedure; Y79.3 Surgical instruments, materials and orthopedic devices (including sutures) associated with adverse incidents; Y92.230 Patient room in hospital as the place of occurrence of the external cause; Z79.4 Long term (current) use of insulin; Z88.0 Allergy status to penicillin
CPT/HCPCS: 36415; 36416; 72020; 72148; 82040; 82247; 82310; 82374; 82435; 82565; 82947; 82948; 84075; 84132; 84155; 84295; 84450; 84460; 84520; 85025; 94640; 94668; 96372; 97162; G0378; J1100; J1170; J1720; J2001; J2250; J2405; J2704; J3010; J3490; J7509; J7613

== ENCOUNTER 2017-10-17 11:20 | Inpatient (IN) | payer MEDICARE, OTHER ==
[2017-10-15 20:17] VITALS: Ht 181.6 cm; Wt 81.6 kg
[~2017-10-17] VITALS: Ht 181.6 cm; Wt 81.6 kg
[2017-10-17 11:30] VITALS: BP 147/77
[2017-10-17] MEDS ORDERED: ACETAMINOPHEN 500 MG TAB PO PRN (11:51)
[2017-10-17] MEDS ORDERED: BISACODYL 10 MG SUPP PR PRN (11:51)
[2017-10-17] MEDS ORDERED: diphenhydrAMINE 25 MG CAP PO PRN (11:51)
[2017-10-17] MEDS ORDERED: BENZOCAINE/MENTHOL 1 EACH LOZG PO PRN (11:51)
[2017-10-17] MEDS ORDERED: methylPREDNIS 4 MG TAB PO SCH (11:51)
[2017-10-17] MEDS ORDERED: ALBUTEROL 2.5 MG/3 ML NEB NEB PRN (11:51)
[2017-10-17] MEDS ORDERED: MAGNESIUM HYDROXIDE* 30ML UDCP PO PRN (11:51)
[2017-10-17] MEDS ORDERED: ALBUTEROL SULFATE 90 MCG/ACT 8.5 GM HNH INH PRN (11:51)
[2017-10-17] MEDS: ALBUTEROL/IPRATROPIUM 3 ML NEB NEB SCH ×2 (12:00→17:32)
[2017-10-17] MEDS: INSULIN HUM LISPRO 100 UN/ML 3 ML VIAL SUBQ PRN ×3 (12:17→21:20)
--- NOTE | 2017-10-17 12:20 | Consultant Pharmacy Review ---
Slip Presser Review Medication Review Do All Mecications have a Diag: Yes Beers Criteria Medication 2015 Anticholinergics exclude TCAs: Diphenhydramine (prn use for itching) Antidepressants: Nortriptyline Benzodiazapines (long acting): Diazepam (prn use for muscle spasms) Sliding Scale Insulin: Slidin Scale Insulin (Diabetes ) Disease-Drug Interactions History of Falls/Fractures: Anticonvulsants, Benzodiazepines, TCAs, Opioids Drugs to Use With Caution Medications Which Cause SIADH: TCAs Other General Cautions Lexicomp Interaction Analysis A = No known interaction C = Monitor therapy X = Avoid combination B = No action needed D = Consider therapy modification Drugs in this analysis: Acetaminophen; Advair Diskus; Amaryl; Bisacodyl; Cepacol (CAN); Cozaar; DiazePAM; DiphenhydrAMINE (Systemic); Docusate Sodium (SYN); HumaLOG; HydroCHLOROthiazide; Lortab; Medrol; MetFORMIN; Milk of Magnesia [OTC] ; MiraLax [OTC]; Neurontin; Norvasc; Oxy.IR (CAN); Pamelor; ProAir HFA * Drug-Drug Interactions D Bisacodyl Milk of Magnesia [OTC] (Antacids) D DiazePAM (BUFFING MACHINE OPERATOR SEMIAUTOMATIC Depressants) Lortab (HYDROcodone) D DiazePAM (BUFFING MACHINE OPERATOR SEMIAUTOMATIC Depressants) Oxy.IR (CAN) (OxyCODONE) D DiphenhydrAMINE (Systemic) (BUFFING MACHINE OPERATOR SEMIAUTOMATIC Depressants) Lortab (HYDROcodone) D DiphenhydrAMINE (Systemic) (BUFFING MACHINE OPERATOR SEMIAUTOMATIC Depressants) Oxy.IR (CAN) (OxyCODONE) D Lortab (BUFFING MACHINE OPERATOR SEMIAUTOMATIC Depressants) Oxy.IR (CAN) (OxyCODONE) D Lortab (HYDROcodone) Neurontin (BUFFING MACHINE OPERATOR SEMIAUTOMATIC Depressants) D Lortab (HYDROcodone) Oxy.IR (CAN) (BUFFING MACHINE OPERATOR SEMIAUTOMATIC Depressants) D Lortab (HYDROcodone) Pamelor (BUFFING MACHINE OPERATOR SEMIAUTOMATIC Depressants) D Medrol (Corticosteroids (Oral)) Milk of Magnesia [OTC] (Antacids) D Milk of Magnesia [OTC] (Antacids) Neurontin (Gabapentin) D Milk of Magnesia [OTC] (Magnesium Salts) Neurontin (Gabapentin) Depends on Route D Neurontin (BUFFING MACHINE OPERATOR SEMIAUTOMATIC Depressants) Oxy.IR (CAN) (OxyCODONE) D Oxy.IR (CAN) (OxyCODONE) Pamelor (BUFFING MACHINE OPERATOR SEMIAUTOMATIC Depressants) C Advair Diskus (Beta2-Agonists) HydroCHLOROthiazide (Thiazide and Thiazide- Like Diuretics) C Advair Diskus (Beta2-Agonists) Pamelor (Tricyclic Antidepressants) C Advair Diskus (Corticosteroids (Orally Inhaled)) HydroCHLOROthiazide ( Thiazide and Thiazide-Like Diuretics) C Advair Diskus (Sympathomimetics) ProAir HFA (Sympathomimetics) C Amaryl (Antidiabetic Agents) HumaLOG (Hypoglycemia-Associated Agents) C Amaryl (Antidiabetic Agents) HydroCHLOROthiazide (Hyperglycemia-Associated Agents) C Amaryl (Antidiabetic Agents) HydroCHLOROthiazide (Thiazide and Thiazide- Like Diuretics) C Amaryl (Antidiabetic Agents) Medrol (Hyperglycemia-Associated Agents) C Amaryl (CYP2C9 Substrates (High risk with Inhibitors)) Cozaar (CYP2C9 Inhibitors (Moderate)) C Amaryl (Hypoglycemia-Associated Agents) HumaLOG (Hypoglycemia-Associated Agents) C Amaryl (Hypoglycemia-Associated Agents) MetFORMIN (Antidiabetic Agents) C Amaryl (Sulfonylureas) Pamelor (Cyclic Antidepressants) C DiazePAM (BUFFING MACHINE OPERATOR SEMIAUTOMATIC Depressants) DiphenhydrAMINE (Systemic) (BUFFING MACHINE OPERATOR SEMIAUTOMATIC Depressants) C DiazePAM (BUFFING MACHINE OPERATOR SEMIAUTOMATIC Depressants) Neurontin (BUFFING MACHINE OPERATOR SEMIAUTOMATIC Depressants) C DiazePAM (BUFFING MACHINE OPERATOR SEMIAUTOMATIC Depressants) Pamelor (BUFFING MACHINE OPERATOR SEMIAUTOMATIC Depressants) C DiphenhydrAMINE (Systemic) (Anticholinergic Agents) HydroCHLOROthiazide ( Thiazide and Thiazide-Like Diuretics) C DiphenhydrAMINE (Systemic) (Anticholinergic Agents) Pamelor ( Anticholinergic Agents) C DiphenhydrAMINE (Systemic) (BUFFING MACHINE OPERATOR SEMIAUTOMATIC Depressants) Neurontin (BUFFING MACHINE OPERATOR SEMIAUTOMATIC Depressants) C DiphenhydrAMINE (Systemic) (BUFFING MACHINE OPERATOR SEMIAUTOMATIC Depressants) Pamelor (BUFFING MACHINE OPERATOR SEMIAUTOMATIC Depressants) C HumaLOG (Antidiabetic Agents) HydroCHLOROthiazide (Hyperglycemia-Associated Agents) C HumaLOG (Antidiabetic Agents) HydroCHLOROthiazide (Thiazide and Thiazide- Like Diuretics) C HumaLOG (Antidiabetic Agents) Medrol (Hyperglycemia-Associated Agents) C HumaLOG (Hypoglycemia-Associated Agents) MetFORMIN (Antidiabetic Agents) C HydroCHLOROthiazide (Diuretics) Lortab (Opioid Analgesics) C HydroCHLOROthiazide (Diuretics) Oxy.IR (CAN) (Opioid Analgesics) C HydroCHLOROthiazide (Hyperglycemia-Associated Agents) MetFORMIN ( Antidiabetic Agents) C HydroCHLOROthiazide (Thiazide and Thiazide-Like Diuretics) Medrol ( Corticosteroids (Systemic)) C HydroCHLOROthiazide (Thiazide and Thiazide-Like Diuretics) MetFORMIN ( Antidiabetic Agents) C HydroCHLOROthiazide (Thiazide and Thiazide-Like Diuretics) Pamelor ( Anticholinergic Agents) C HydroCHLOROthiazide (Thiazide and Thiazide-Like Diuretics) ProAir HFA (Beta2 -Agonists) C Lortab (HYDROcodone) Norvasc (CY Inhibitors (Weak)) Depends on Additional drug/group C Medrol (Hyperglycemia-Associated Agents) MetFORMIN (Antidiabetic Agents) C Milk of Magnesia [OTC] (Magnesium Salts) Norvasc (Calcium Channel Blockers) C Neurontin (BUFFING MACHINE OPERATOR SEMIAUTOMATIC Depressants) Pamelor (BUFFING MACHINE OPERATOR SEMIAUTOMATIC Depressants) C Pamelor (Tricyclic Antidepressants) ProAir HFA (Beta2-Agonists) B Acetaminophen Lortab (Opioid Analgesics) B Acetaminophen Oxy.IR (CAN) (Opioid Analgesics) B Advair Diskus (Beta2-Agonists) Medrol (Corticosteroids) B Advair Diskus (QTc-Prolonging Agents (Indeterminate Risk and Risk Modifying)) DiphenhydrAMINE (Systemic) (QTc-Prolonging Agents (Indeterminate Risk and Risk Modifying)) B Amaryl (Sulfonylureas) Milk of Magnesia [OTC] (Antacids) B DiazePAM (Benzodiazepines) Milk of Magnesia [OTC] (Antacids) B DiphenhydrAMINE (Systemic) (QTc-Prolonging Agents (Indeterminate Risk and Risk Modifying)) ProAir HFA (QTc-Prolonging Agents (Indeterminate Risk and Risk Modifying)) B Medrol (Corticosteroids) ProAir HFA (Beta2-Agonists) * We were unable to retrieve Duplicate Therapy information for the following drugs: Cepacol (CAN) Acetaminophen Lortab Advair Diskus ProAir HFA Lortab Oxy.IR (CAN) Pneumococcal Vaccine HX Pneumo Vac ([id number]): No HX Pneumo Vac (Pneumovax): No Comments Regarding the Review Patient is a candidate for flu vaccine and Prevnar 13 but refuses vaccination at this time. Please monitor closely for falls due to numerous medications ( Oxycodone, lortab, diphenhydramine, nortriptyline, neurontin,and diazepam) that can cause BUFFING MACHINE OPERATOR SEMIAUTOMATIC depression and increase fall risk. Re-evaluate necessity of these medications in 14 days. Do not exceed 4 gm of acetaminophen in 24 hours with Lortab and acetaminophen. MD Notified? MD Notified?: No PHILIP WILLIAMSON Oct 17, 2017 12:20
[2017-10-17] MEDS: methylPREDNIS 4 MG TAB PO SCH ×2 (13:20→16:53)
[2017-10-17] MEDS: GABAPENTIN 300 MG CAP PO SCH ×2 (14:35→21:19)
--- NOTE | 2017-10-17 14:41 | OT ECF NOTE ---
Type of Note: Initial Note Primary Medical Diagnosis: Weakness s/p L2-L5 laminectomies * No bending, no lifting >15#, no twisting, limit unsupported sitting to 15 minutes, log roll in/out of bed* Occupational Therapy Evaluation Date: 10/17/17 SUBJECTIVE: Prior Hospitalization: [facility] 10/12/17 thru 10/17/17. DOS: 10/12/17 Prior Level of Function: Independent with all ADLs/IADLs. [place] on [place] miles outside of [place]. 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 Occasionally, his son provides 2-3 prepared meals a week. Prior Living Status: Bi-level house (10 stairs to bedroom) Alone Assist by family Community Services: Independent No known needs Home Accessibility: Stairs with rails Tub/shower combination Equipment Owned: Front wheeled walker Tub/shower chair Grab bars by toilet and shower Medical Complications/Past Medical History: Type 2 DM, COPD, HTN Psychosocial Support: Supportive family that resides in [place] Pain Scale (0-10): 5/10 prior to ambulation. 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 Decreased muscle activation in R LE secondary to seroma around surgical site. Pt presents with slow gait. No loss of balance noted. ADL: Upper body dressing: Assistive device: Upper body dressing ability: N/T Lower body dressing: Assistive device: May benefit from LB AE education Lower body dressing ability: Maximum assistance Toileting: Assistive device: Raised toilet seat Toileting ability: Minimum assistance Grooming/hygiene: Standing Assistive device: None Grooming ability: CGA Bathing: Assistive device: Bathing ability: N/T Standardized Assessment: Chapo Index of Activities of Daily Livin/20 at initial evaluation (10/17). ASSESSMENT: "Lin" presents to [facility] with increased assist required for ADLs/ IADLs s/p L2-L5 laminectomies and decreased muscle activation in R LE secondary to seroma around surgical site. He will benefit from skilled OT services to optimize (I) for ADLs/IADLs prior to discharge home alone. Problem List/Current Limitations: Pain Decreased strength Decreased sensation Decreased coordination Decreased balance Generalized weakness Short Term Goals: 1) Pt will be Mod (I) LB dressing. 2) Pt will be SBA grooming/hygiene. 3) Pt will be SBA toilet task. 4) Pt will be SBA shower task. 5) Pt will be SBA light meal prep. 6) Pt Chapo Index of ADLs score will increase by 2 points. Manager Sales Training Goals: Return home with possible HH and support from family Patient Goals: "Breathe and walk better" Rehabilitation Prognosis: Good Barriers to Discharge: Pain, Weakness PLAN: The patient will benefit from skilled occupational therapy services 5 times per week for 2 weeks including: Ther ex ADL training Safety training Ther act IADL training Transfer training Adaptive equip training Bed mobility Energy conservation Thank you for this referral. If you have any questions, concerns, or comments about this report or plan, please contact me at . Judy Mcdonald MS, OTR/L Occupational Therapist [facility]
[2017-10-17 15:45] VITALS: BP 134/75
--- NOTE | 2017-10-17 16:01 | PT ECF NOTE ---
Type of Note: Initial Note Primary Medical Diagnosis: s/p L2-L5 laminectomies, with possible post operative seroma/hematoma Physical Therapy Evaluation Date: 10/17/17 SUBJECTIVE: Prior Hospitalization: [facility]-10/17/17 Prior Level of Function: Independent Prior Living Status: Multilevel house, Alone Community Services: Independent, No known needs Home Accessibility: 3 Stairs with rails Equipment Owned: Front wheeled walker Medical Complications/Past Medical History: See EMR Psychosocial Support: Supportive son and daughter in law Pain Scale (0-10): 8/10, mid back OBJECTIVE: Strength: Right Lower Extremity: DF: <3/5 (no AROM against gravity) Knee flexion: <3/5 Knee extension: <3/5 Hip flexion: <3/5 Left Lower Extremity: DF: 5/5 Knee flexion:5/5 Knee extension:5/5 Hip flexion: 5/5 ROM: Lacks AROM against gravity on R) LE Sensation: decreased light touch sensation on the R) distal LE Other Neuro findings: R) LE weakness and diminished sensation s/p L2-L5 laminectomies Bed Mobility: NT, pt up in chair Transfers: CGA with RW Gait: CGA with RW x25' Stairs: NT Timed Up and Go (>12 seconds indicated increased risk for falls):88 seconds ASSESSMENT: PT ECF eval complete. Pt demonstrates R) LE weakness and lacks full AROM against gravity in the seated position, with minimal activity hip flexion and dorsiflexion. He requires increased time and assistance for all mobility with cues for safety and sequencing. He will benefit from skilled PT services in order to improve function and safety prior to d/c home alone. Problem List/Current Limitations: Pain Decreased activity aydee Decreased strength Decreased sensation Decreased ROM Decreased coordination Decreased balance Generalized weakness Short Term Goals: 1: Pt to complete bed mobility with Choco and log roll technique. 2: Pt to complete transfers with Choco and least restrictive AD 3: Pt to ambulate 200' with SBA and least restrictive AD 4: Pt to asc/desc 4 stairs with SBA and use of railing. 5: Pt to demonstrate a marked decrease in TUG time to indicate a decreased risk of falls. Penitentiary Goals: Pt to d/c home with decreased risk of falls and increased need of assistance from others Patient Goals: Pt to d/c home Rehabilitation Prognosis: Good Barriers for Discharge: Significant R) LE weakness, high level of independence required to d/c home PLAN: The patient will benefit from skilled physical therapy services 5 times per week for 2 weeks including: Therapeutic Exercise Therapeutic Activities Transfer Training Gait Training Stair Training Manual Therapy Safety Training Neuromuscular Re-educ. Pt/Caregiver Training Bed Mobility Thank you for this referral. If you have any questions, concerns, or comments about this report or plan, please contact me at . Anabela Kelley, PT, DPT [facility]
[2017-10-17] MEDS: APAP/HYDROCODONE 325/5 TAB PO PRN ×2 (16:53→21:20)
[2017-10-17] MEDS: SALMETEROL/FLUTIC 500/50 1 INH INH SCH (17:32)
[2017-10-17] MEDS: metFORMIN HCL XR 500 MG TABCR PO SCH (21:19)
[2017-10-17] MEDS: NORTRIPTYLINE HCL 10 MG CAP PO SCH (21:19)
[2017-10-17] MEDS: DOCUSATE SODIUM 100 MG CAP PO SCH (21:19)
[2017-10-18] MEDS: SALMETEROL/FLUTIC 500/50 1 INH INH SCH ×2 (05:57→16:55)
[2017-10-18] MEDS: ALBUTEROL/IPRATROPIUM 3 ML NEB NEB SCH ×3 (05:57→16:55)
[2017-10-18 07:35] VITALS: BP 154/80
[2017-10-18] MEDS: POLYETHYLENE GLYCOL 17 GM PKT PO SCH (08:28)
[2017-10-18] MEDS: amLODIPine BESYL(*) 5 MG TAB PO SCH (08:28)
[2017-10-18] MEDS: DOCUSATE SODIUM 100 MG CAP PO SCH ×2 (08:28→21:08)
[2017-10-18] MEDS: HYDROCHLOROTHIAZIDE 25 MG TAB PO SCH (08:29)
[2017-10-18] MEDS: methylPREDNIS 4 MG TAB PO SCH ×2 (08:29→21:08)
[2017-10-18] MEDS: GLIMEPIRIDE 2 MG TAB PO SCH (08:30)
[2017-10-18] MEDS: GABAPENTIN 300 MG CAP PO SCH ×3 (08:30→21:08)
[2017-10-18] MEDS: APAP/HYDROCODONE 325/5 TAB PO PRN ×4 (08:31→22:27)
[2017-10-18] MEDS: LOSARTAN POTASSIUM 50 MG TAB PO SCH (08:31)
[2017-10-18] MEDS ORDERED: methylPREDNIS 4 MG TAB PO SCH (12:00)
[2017-10-18] MEDS: INSULIN HUM LISPRO 100 UN/ML 3 ML VIAL SUBQ PRN ×3 (12:30→21:08)
--- NOTE | 2017-10-18 13:07 | Medical Nutrition Therapy ---
Nutrition Anthropometrics Height (Inches): 71.50 Height (Calculated Centimeters: 181.711528 Weight (Pounds): 180 Weight (Calculated Kilograms): 81.919 BMI Calculated: 23.85 Joshua Nutrition Score: Adequate Joshua Nutrition Risk Score: 18 Dietary Referral Nutrition Risk Factors: Nutrition Risk Comment: Physical Findings Physical Appearance: BMI WNR Skin Appearance Skin Appearance: Edema Edema Location Modifier: Right Edema Location: Lower Extremity Type of Edema: Degree of Edema: 1+ Gastrointestinal Symptoms GI Symtoms: Tube Present: Bowel Sounds: Recent Bowel Pattern: Stool Characteristics: Nutritional Diagnosis Nutritional Risk Acuity 3: OR & > 80 yrs Nutritional Risk Acuity 4: Good Appetite Past Medical History: HTN, COPD, T2DM,CAD Nutritional Acuity: 3-Mild Energy Requirement: 1970 (M- -) Protein Requirement: 81 (1gm/kg) Fluid Requirement: 2049 (20gm/kg) Diet Type: Diabetic Nutrition Intervention: Cont diet as ordered, Encourage intake, HS snack Drug: Diuretics Drug/Nutrition Recommendations: Check Serum K+ Food Likes: Diet Chocolate Pudding Nutrition Monitoring & Eval Nutrition Goals: Eat 75-100% Meal RD Patient Assessment Time: [address] Assessment Type: RD Assessment Patient Nutrition Acuity: 3-Mild Follow Up Date: Oct 25, 2017 Nutritional Comment: 2/6 Pt admitted post surgery for strenghtening. Pt eating 100% of meals. Pt is on diabetic diet, receiving insulin and metformin. BG elevated ranging 130's to 260's. Wt was 171 on 10/12 win non-pitting edema to feet. Current wt is 180 with 1+ edema LE. Pt is on a duiretic. Anticipate wt loss when edema resolved. Will cont to monitor and encourage intake. DEEPALI HERNDON Oct 18, 2017 12:56
[2017-10-18] MEDS ORDERED: SALINE 0.65% NAS SPR 44 ML BTL PRN (13:50)
[2017-10-18 15:20] VITALS: BP 136/78
[2017-10-18] MEDS: NORTRIPTYLINE HCL 10 MG CAP PO SCH (21:08)
[2017-10-18] MEDS: metFORMIN HCL XR 500 MG TABCR PO SCH (21:08)
[2017-10-19] MEDS: APAP/HYDROCODONE 325/5 TAB PO PRN ×3 (02:30→20:41)
[2017-10-19] MEDS: SALMETEROL/FLUTIC 500/50 1 INH INH SCH ×2 (05:56→17:08)
[2017-10-19] MEDS: ALBUTEROL/IPRATROPIUM 3 ML NEB NEB SCH ×3 (05:56→17:08)
[2017-10-19 08:01] VITALS: BP 185/81
[2017-10-19] MEDS: POLYETHYLENE GLYCOL 17 GM PKT PO SCH (08:36)
[2017-10-19] MEDS: GABAPENTIN 300 MG CAP PO SCH ×3 (08:37→20:41)
[2017-10-19] MEDS: DOCUSATE SODIUM 100 MG CAP PO SCH ×2 (08:37→20:41)
[2017-10-19] MEDS: GLIMEPIRIDE 2 MG TAB PO SCH (08:37)
[2017-10-19] MEDS: methylPREDNIS 4 MG TAB PO SCH ×2 (08:37→20:41)
[2017-10-19] MEDS: amLODIPine BESYL(*) 5 MG TAB PO SCH (08:38)
[2017-10-19] MEDS: LOSARTAN POTASSIUM 50 MG TAB PO SCH (08:38)
[2017-10-19] MEDS: HYDROCHLOROTHIAZIDE 25 MG TAB PO SCH (08:38)
--- NOTE | 2017-10-19 09:04 | Hospitalist Progress Note ---
Subjective Progress Notes Subjective Feeling a bit better. Still having some respiratory symptoms but improving. Physical Exam Vital Signs Date Time Temp Pulse Resp B/P (MAP) Pulse Ox O2 Delivery O2 Flow Rate FiO2 10/19/17 08:01 97.7 72 16 185/81 (115) 94 Room Air Intake and Output 10/20/17 07:00 # Voids 1 General Appearance: Alert, Awake, No Acute Distress Neuro: No Gross deficits Eyes: PERRLA Cardiovascular: Regular Rate and Rhythm Respiratory: Other (Decreased BS throughout. 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 We have also had him on sliding scale level #2. Glucoses occasionally elevated due to steroids. This should improve as he is weaned off the Medrol. (2) Low grade fever Status: Resolved Assessment & Plan: Resolved. (3) COPD (chronic obstructive pulmonary disease) Status: Chronic Assessment & Plan: The patient states he was having a bit of an exacerbation prior to his surgery. He is getting better and is on scheduled Duonebs. He is using his IS and an Aerobika as well. He is on chronic treatment with Advair and albuterol. (4) Essential hypertension Status: Chronic Assessment & Plan: Overall he is adequately controlled. He is on chronic treatment with amlodipine, losartan, and hydrochlorothiazide. He did have one isolated high BP this am. Will watch. Time Spent on Plan of Care: < 30 min DYAN JONES MD Oct 19, 2017 09:04
[2017-10-19] MEDS: oxyCODONE HCL 5 MG CAP PO PRN (11:32)
[2017-10-19 15:15] VITALS: BP 141/79
[2017-10-19] MEDS: NORTRIPTYLINE HCL 10 MG CAP PO SCH (20:41)
[2017-10-19] MEDS: metFORMIN HCL XR 500 MG TABCR PO SCH (20:41)
[2017-10-19] MEDS: INSULIN HUM LISPRO 100 UN/ML 3 ML VIAL SUBQ PRN (20:41)
[2017-10-20] MEDS: ALBUTEROL/IPRATROPIUM 3 ML NEB NEB SCH ×3 (05:41→17:16)
[2017-10-20] MEDS: SALMETEROL/FLUTIC 500/50 1 INH INH SCH ×2 (05:41→17:16)
[2017-10-20] MEDS: APAP/HYDROCODONE 325/5 TAB PO PRN ×3 (08:05→20:36)
[2017-10-20] MEDS ORDERED: methylPREDNIS 4 MG TAB PO SCH (09:00)
[2017-10-20] MEDS: POLYETHYLENE GLYCOL 17 GM PKT PO SCH (09:59)
[2017-10-20] MEDS: GLIMEPIRIDE 2 MG TAB PO SCH (09:59)
[2017-10-20] MEDS: LOSARTAN POTASSIUM 50 MG TAB PO SCH (10:00)
[2017-10-20] MEDS: HYDROCHLOROTHIAZIDE 25 MG TAB PO SCH (10:00)
[2017-10-20] MEDS: amLODIPine BESYL(*) 5 MG TAB PO SCH (10:01)
[2017-10-20] MEDS: GABAPENTIN 300 MG CAP PO SCH ×3 (10:01→20:36)
[2017-10-20] MEDS: DOCUSATE SODIUM 100 MG CAP PO SCH ×2 (10:02→20:36)
[2017-10-20 10:12] VITALS: BP 145/79
[2017-10-20] MEDS: INSULIN HUM LISPRO 100 UN/ML 3 ML VIAL SUBQ PRN ×2 (12:28→20:36)
[2017-10-20 19:30] VITALS: BP 140/80
[2017-10-20] MEDS: metFORMIN HCL XR 500 MG TABCR PO SCH (20:35)
[2017-10-20] MEDS: NORTRIPTYLINE HCL 10 MG CAP PO SCH (20:36)
[2017-10-21] MEDS: ALBUTEROL/IPRATROPIUM 3 ML NEB NEB SCH ×3 (05:54→18:08)
[2017-10-21] MEDS: SALMETEROL/FLUTIC 500/50 1 INH INH SCH ×2 (05:54→18:08)
[2017-10-21 07:45] VITALS: BP 143/66
[2017-10-21] MEDS: APAP/HYDROCODONE 325/5 TAB PO PRN ×3 (08:05→20:31)
[2017-10-21] MEDS: HYDROCHLOROTHIAZIDE 25 MG TAB PO SCH (08:45)
[2017-10-21] MEDS: amLODIPine BESYL(*) 5 MG TAB PO SCH (08:45)
[2017-10-21] MEDS: LOSARTAN POTASSIUM 50 MG TAB PO SCH (08:45)
[2017-10-21] MEDS: DOCUSATE SODIUM 100 MG CAP PO SCH ×2 (08:46→20:31)
[2017-10-21] MEDS: GABAPENTIN 300 MG CAP PO SCH ×3 (08:46→20:31)
[2017-10-21] MEDS: GLIMEPIRIDE 2 MG TAB PO SCH (08:46)
[2017-10-21] MEDS: POLYETHYLENE GLYCOL 17 GM PKT PO SCH (08:47)
[2017-10-21] MEDS: INSULIN HUM LISPRO 100 UN/ML 3 ML VIAL SUBQ PRN ×2 (12:09→20:30)
[2017-10-21 15:34] VITALS: BP 116/71
[2017-10-21] MEDS: metFORMIN HCL XR 500 MG TABCR PO SCH (20:31)
[2017-10-21] MEDS: NORTRIPTYLINE HCL 10 MG CAP PO SCH (20:31)
[2017-10-22] MEDS: SALMETEROL/FLUTIC 500/50 1 INH INH SCH ×2 (05:27→17:41)
[2017-10-22] MEDS: ALBUTEROL/IPRATROPIUM 3 ML NEB NEB SCH ×3 (05:27→17:41)
[2017-10-22 08:00] VITALS: BP 134/81
[2017-10-22] MEDS: POLYETHYLENE GLYCOL 17 GM PKT PO SCH (08:42)
[2017-10-22] MEDS: oxyCODONE HCL 5 MG CAP PO PRN (08:42)
[2017-10-22] MEDS: GABAPENTIN 300 MG CAP PO SCH ×3 (08:42→20:24)
[2017-10-22] MEDS: DOCUSATE SODIUM 100 MG CAP PO SCH ×2 (08:42→20:24)
[2017-10-22] MEDS: GLIMEPIRIDE 2 MG TAB PO SCH (08:42)
[2017-10-22] MEDS: amLODIPine BESYL(*) 5 MG TAB PO SCH (08:46)
[2017-10-22] MEDS: HYDROCHLOROTHIAZIDE 25 MG TAB PO SCH (08:46)
[2017-10-22] MEDS: LOSARTAN POTASSIUM 50 MG TAB PO SCH (08:46)
[2017-10-22 15:56] VITALS: BP 150/52
[2017-10-22] MEDS: INSULIN HUM LISPRO 100 UN/ML 3 ML VIAL SUBQ PRN ×2 (17:32→20:23)
[2017-10-22] MEDS: APAP/HYDROCODONE 325/5 TAB PO PRN (17:49)
[2017-10-22] MEDS: metFORMIN HCL XR 500 MG TABCR PO SCH (20:23)
[2017-10-22] MEDS: NORTRIPTYLINE HCL 10 MG CAP PO SCH (20:24)
[2017-10-23] MEDS: ALBUTEROL/IPRATROPIUM 3 ML NEB NEB SCH ×3 (05:44→18:14)
[2017-10-23] MEDS: SALMETEROL/FLUTIC 500/50 1 INH INH SCH ×2 (05:44→18:14)
[2017-10-23 07:30] VITALS: BP 136/81
[2017-10-23] MEDS: APAP/HYDROCODONE 325/5 TAB PO PRN ×2 (08:58→20:31)
[2017-10-23] MEDS: POLYETHYLENE GLYCOL 17 GM PKT PO SCH (08:58)
[2017-10-23] MEDS: GABAPENTIN 300 MG CAP PO SCH ×3 (08:58→20:31)
[2017-10-23] MEDS: HYDROCHLOROTHIAZIDE 25 MG TAB PO SCH (08:59)
[2017-10-23] MEDS: DOCUSATE SODIUM 100 MG CAP PO SCH ×2 (09:00→20:31)
[2017-10-23] MEDS: LOSARTAN POTASSIUM 50 MG TAB PO SCH (09:00)
[2017-10-23] MEDS: amLODIPine BESYL(*) 5 MG TAB PO SCH (09:00)
[2017-10-23] MEDS: GLIMEPIRIDE 2 MG TAB PO SCH (09:00)
[2017-10-23] MEDS: guaiFENesin 600 MG TABCR PO SCH ×2 (11:48→20:31)
[2017-10-23 15:40] VITALS: BP 135/74
[2017-10-23] MEDS: metFORMIN HCL XR 500 MG TABCR PO SCH (20:31)
[2017-10-23] MEDS: NORTRIPTYLINE HCL 10 MG CAP PO SCH (20:31)
[2017-10-23] MEDS: INSULIN HUM LISPRO 100 UN/ML 3 ML VIAL SUBQ PRN (20:32)
[2017-10-24] MEDS: ALBUTEROL/IPRATROPIUM 3 ML NEB NEB SCH ×3 (05:59→17:38)
[2017-10-24] MEDS: SALMETEROL/FLUTIC 500/50 1 INH INH SCH ×2 (06:00→17:38)
[2017-10-24 07:25] VITALS: BP 134/70
[2017-10-24] MEDS: amLODIPine BESYL(*) 5 MG TAB PO SCH (08:50)
[2017-10-24] MEDS: HYDROCHLOROTHIAZIDE 25 MG TAB PO SCH (08:50)
[2017-10-24] MEDS: LOSARTAN POTASSIUM 50 MG TAB PO SCH (08:50)
[2017-10-24] MEDS: GLIMEPIRIDE 2 MG TAB PO SCH (08:50)
[2017-10-24] MEDS: GABAPENTIN 300 MG CAP PO SCH ×3 (08:51→20:58)
[2017-10-24] MEDS: DOCUSATE SODIUM 100 MG CAP PO SCH ×2 (08:51→20:58)
[2017-10-24] MEDS: POLYETHYLENE GLYCOL 17 GM PKT PO SCH (08:51)
[2017-10-24] MEDS: APAP/HYDROCODONE 325/5 TAB PO PRN ×2 (08:51→20:58)
[2017-10-24] MEDS: guaiFENesin 600 MG TABCR PO SCH ×2 (08:51→20:59)
[2017-10-24] MEDS: INSULIN HUM LISPRO 100 UN/ML 3 ML VIAL SUBQ PRN ×2 (12:27→20:58)
[2017-10-24 15:50] VITALS: BP 115/63
[2017-10-24] MEDS: NORTRIPTYLINE HCL 10 MG CAP PO SCH (20:58)
[2017-10-24] MEDS: metFORMIN HCL XR 500 MG TABCR PO SCH (20:59)
[2017-10-25] MEDS: ALBUTEROL/IPRATROPIUM 3 ML NEB NEB SCH ×3 (05:54→17:57)
[2017-10-25] MEDS: SALMETEROL/FLUTIC 500/50 1 INH INH SCH ×2 (05:54→17:58)
[2017-10-25 08:00] VITALS: BP 127/63
[2017-10-25] MEDS: amLODIPine BESYL(*) 5 MG TAB PO SCH (08:48)
[2017-10-25] MEDS: HYDROCHLOROTHIAZIDE 25 MG TAB PO SCH (08:48)
[2017-10-25] MEDS: LOSARTAN POTASSIUM 50 MG TAB PO SCH (08:48)
[2017-10-25] MEDS: GLIMEPIRIDE 2 MG TAB PO SCH (08:50)
[2017-10-25] MEDS: APAP/HYDROCODONE 325/5 TAB PO PRN ×2 (08:50→20:22)
[2017-10-25] MEDS: GABAPENTIN 300 MG CAP PO SCH ×3 (08:50→20:19)
[2017-10-25] MEDS: DOCUSATE SODIUM 100 MG CAP PO SCH ×2 (08:50→20:19)
[2017-10-25] MEDS: guaiFENesin 600 MG TABCR PO SCH ×2 (08:50→20:19)
[2017-10-25] MEDS: POLYETHYLENE GLYCOL 17 GM PKT PO SCH (08:50)
--- NOTE | 2017-10-25 13:18 | Medical Nutrition Therapy ---
Nutrition Anthropometrics Height (Inches): 71.50 Height (Calculated Centimeters: 181.733089 Weight (Pounds): 180 Weight (Calculated Kilograms): 81.919 BMI Calculated: 23.85 Joshua Nutrition Score: Adequate Joshua Nutrition Risk Score: 17 Dietary Referral Nutrition Risk Factors: Nutrition Risk Comment: Physical Findings Physical Appearance: BMI WNR Skin Appearance Skin Appearance: Edema Edema Location Modifier: Left Edema Location: Lower Extremity Type of Edema: Degree of Edema: 1+ Gastrointestinal Symptoms GI Symtoms: Tube Present: Bowel Sounds: Recent Bowel Pattern: Stool Characteristics: Nutritional Diagnosis Nutritional Risk Acuity 3: OR & > 80 yrs Nutritional Risk Acuity 4: Good Appetite Past Medical History: HTN, COPD, T2DM,CAD Nutritional Acuity: 3-Mild Energy Requirement: 1969 (- -) Protein Requirement: 81 (1gm/kg) Fluid Requirement: 2049 (20gm/kg) Diet Type: Diabetic Nutrition Intervention: Cont diet as ordered, Encourage intake, HS snack Drug: Diuretics Drug/Nutrition Recommendations: Check Serum K+ Food Likes: he likes to have a crumb catcher with all his meals. Nutrition Monitoring & Eval Nutrition Goals: Eat 75-100% Meal Nutrition Follow-Up: Good Intake RD Patient Assessment Time: [address] Assessment Type: RD Assessment Patient Nutrition Acuity: 3-Mild Follow Up Date: Nov 01, 2017 Nutritional Comment: 2/6 Pt admitted post surgery for strenghtening. Pt eating 100% of meals. Pt is on diabetic diet, receiving insulin and metformin. BG elevated ranging 130's to 260's. Wt was 171 on 10/12 win non-pitting edema to feet. Current wt is 180 with 1+ edema LE. Pt is on a duiretic. Anticipate wt loss when edema resolved. Will cont to monitor and encourage intake. 2/) Pt. on diabetic diet eating 100% x 3 meals. Remains on diuretic 2/) Glu 114, no new weight at this time. Continue to monitor po intake, labs, weight, medications SOFIE FELIZ Oct 24, 2017 12:20
[2017-10-25 16:10] VITALS: BP 113/79
[2017-10-25] MEDS: metFORMIN HCL XR 500 MG TABCR PO SCH (20:19)
[2017-10-25] MEDS: NORTRIPTYLINE HCL 10 MG CAP PO SCH (20:19)
[2017-10-25] MEDS: INSULIN HUM LISPRO 100 UN/ML 3 ML VIAL SUBQ PRN (20:23)
[2017-10-26] MEDS: SALMETEROL/FLUTIC 500/50 1 INH INH SCH ×2 (05:36→18:03)
[2017-10-26] MEDS: ALBUTEROL/IPRATROPIUM 3 ML NEB NEB SCH ×3 (05:36→18:03)
[2017-10-26] MEDS: APAP/HYDROCODONE 325/5 TAB PO PRN ×3 (08:17→20:58)
[2017-10-26 08:30] VITALS: BP 147/79
[2017-10-26] MEDS: amLODIPine BESYL(*) 5 MG TAB PO SCH (08:53)
[2017-10-26] MEDS: HYDROCHLOROTHIAZIDE 25 MG TAB PO SCH (08:54)
[2017-10-26] MEDS: LOSARTAN POTASSIUM 50 MG TAB PO SCH (08:55)
[2017-10-26] MEDS: POLYETHYLENE GLYCOL 17 GM PKT PO SCH (08:58)
[2017-10-26] MEDS: DIAZEPAM 5 MG TAB PO PRN (08:59)
[2017-10-26] MEDS: GLIMEPIRIDE 2 MG TAB PO SCH (08:59)
[2017-10-26] MEDS: DOCUSATE SODIUM 100 MG CAP PO SCH ×2 (08:59→20:59)
[2017-10-26] MEDS: guaiFENesin 600 MG TABCR PO SCH ×2 (08:59→20:59)
[2017-10-26] MEDS: GABAPENTIN 300 MG CAP PO SCH ×3 (09:03→20:59)
[2017-10-26] MEDS: INSULIN HUM LISPRO 100 UN/ML 3 ML VIAL SUBQ PRN ×2 (12:31→20:59)
[2017-10-26] MEDS ORDERED: INSU100V24 SUBQ (13:24)
[2017-10-26] MEDS ORDERED: SODI30SP6 (13:24)
[2017-10-26] MEDS ORDERED: GUAI600T57 PO (13:24)
[2017-10-26] MEDS ORDERED: DOCU-202 PO (13:24)
[2017-10-26] MEDS ORDERED: ACET-2043 PO (13:24)
[2017-10-26] MEDS ORDERED: MOM PO (13:24)
[2017-10-26] MEDS ORDERED: IPRA3AMP21 NEB (13:24)
[2017-10-26] MEDS ORDERED: POLY17PO21 PO (13:24)
[2017-10-26] MEDS ORDERED: DIA5 PO (13:26)
[2017-10-26] MEDS ORDERED: OXYC5TAB38 PO (13:26)
--- NOTE | 2017-10-26 13:45 | Hospitalist Progress Note ---
Subjective Progress Notes Subjective The patient states he is slow to improve. Physical Exam Vital Signs Date Time Temp Pulse Resp B/P (MAP) Pulse Ox O2 Delivery O2 Flow Rate FiO2 10/26/17 11:05 90 10/26/17 11:01 16 10/26/17 09:30 93 Room Air 10/26/17 08:30 97.6 147/79 (101) 10/26/17 04:00 1.0 Intake and Output 10/27/17 07:00 Intake Total 360 ml Balance 360 ml Intake Oral 360 ml # Voids 2 # Bowel Movements 1 General Appearance: Alert, Awake, No Acute Distress, Afebrile Neuro: No Gross deficits Eyes: PERRLA Cardiovascular: Regular Rate and Rhythm Respiratory: Other (Decreased BS throughout without rales, rhonchi or wheezing. 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 We have also had him on sliding scale level #2. Glucoses were occasionally elevated due to steroids. This has improved as he has weaned off the Medrol. (2) Low grade fever Status: Resolved Assessment & Plan: Resolved. (3) COPD (chronic obstructive pulmonary disease) Status: Chronic Assessment & Plan: The patient states he was having a bit of an exacerbation prior to his surgery. He is getting better and is on scheduled Duonebs. He is using his IS and an Aerobika as well. He is on chronic treatment with Advair and albuterol. Guaifenesin was added and he believes it is helping. (4) Essential hypertension Status: Chronic Assessment & Plan: Overall he is adequately controlled. He is on chronic treatment with amlodipine, losartan, and hydrochlorothiazide. Continue to monitor. Time Spent on Plan of Care: < 30 min DYAN JONES MD Oct 26, 2017 13:45
[2017-10-26 20:48] VITALS: BP 142/74
[2017-10-26] MEDS: metFORMIN HCL XR 500 MG TABCR PO SCH (20:59)
[2017-10-26] MEDS: NORTRIPTYLINE HCL 10 MG CAP PO SCH (20:59)
[2017-10-27] MEDS: SALMETEROL/FLUTIC 500/50 1 INH INH SCH ×2 (05:18→18:21)
[2017-10-27] MEDS: ALBUTEROL/IPRATROPIUM 3 ML NEB NEB SCH ×3 (05:18→17:17)
[2017-10-27 08:30] VITALS: BP 155/88
[2017-10-27] MEDS: APAP/HYDROCODONE 325/5 TAB PO PRN ×2 (08:55→20:52)
[2017-10-27] MEDS: POLYETHYLENE GLYCOL 17 GM PKT PO SCH (09:26)
[2017-10-27] MEDS: HYDROCHLOROTHIAZIDE 25 MG TAB PO SCH (09:27)
[2017-10-27] MEDS: LOSARTAN POTASSIUM 50 MG TAB PO SCH (09:27)
[2017-10-27] MEDS: guaiFENesin 600 MG TABCR PO SCH ×2 (09:27→20:51)
[2017-10-27] MEDS: GLIMEPIRIDE 2 MG TAB PO SCH (09:28)
[2017-10-27] MEDS: amLODIPine BESYL(*) 5 MG TAB PO SCH (09:28)
[2017-10-27] MEDS: GABAPENTIN 300 MG CAP PO SCH ×3 (09:28→20:52)
[2017-10-27] MEDS: DOCUSATE SODIUM 100 MG CAP PO SCH ×2 (09:28→20:51)
[2017-10-27 17:11] VITALS: BP 145/84
[2017-10-27] MEDS: INSULIN HUM LISPRO 100 UN/ML 3 ML VIAL SUBQ PRN (20:51)
[2017-10-27] MEDS: NORTRIPTYLINE HCL 10 MG CAP PO SCH (20:52)
[2017-10-27] MEDS: metFORMIN HCL XR 500 MG TABCR PO SCH (20:52)
[2017-10-28] MEDS: ALBUTEROL/IPRATROPIUM 3 ML NEB NEB SCH ×2 (05:12→11:14)
[2017-10-28] MEDS: SALMETEROL/FLUTIC 500/50 1 INH INH SCH (05:12)
[2017-10-28] MEDS ORDERED: HYDR-385 PO ×2 (07:24→07:25)
[2017-10-28 08:00] VITALS: BP 123/73
[2017-10-28] MEDS: GABAPENTIN 300 MG CAP PO SCH (08:54)
[2017-10-28] MEDS: guaiFENesin 600 MG TABCR PO SCH (08:54)
[2017-10-28] MEDS: POLYETHYLENE GLYCOL 17 GM PKT PO SCH (08:54)
[2017-10-28] MEDS: DOCUSATE SODIUM 100 MG CAP PO SCH (08:54)
[2017-10-28] MEDS: GLIMEPIRIDE 2 MG TAB PO SCH (08:55)
[2017-10-28] MEDS: HYDROCHLOROTHIAZIDE 25 MG TAB PO SCH (09:00)
[2017-10-28] MEDS: LOSARTAN POTASSIUM 50 MG TAB PO SCH (09:00)
[2017-10-28] MEDS: amLODIPine BESYL(*) 5 MG TAB PO SCH (09:00)
[2017-10-28] MEDS: APAP/HYDROCODONE 325/5 TAB PO PRN (09:45)
--- NOTE | 2017-10-28 11:16 | OT ECF NOTE ---
Type of Note: Discharge Note Primary Medical Diagnosis: Weakness s/p L2-L5 laminectomies * No bending, no lifting >15#, no twisting, limit unsupported sitting to 15 minutes, log roll in/out of bed* Occupational Therapy Evaluation Date: 10/17/17 SUBJECTIVE: Prior Hospitalization: [facility] 10/12/17 thru 10/17/17. DOS: 10/12/17 Prior Level of Function: Independent with all ADLs/IADLs. [place] alone on [place] outside of [place]. 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 Occasionally, his son provides 2-3 prepared meals a week. Prior Living Status: Bi-level house (10 stairs to bedroom) Alone Assist by family Community Services: Independent No known needs Home Accessibility: Stairs with rails Tub/shower combination Equipment Owned: Front wheeled walker Tub/shower chair Grab bars by toilet and shower Medical Complications/Past Medical History: Type 2 DM, COPD, HTN Psychosocial Support: Supportive family that resides in [place] Pain Scale (0-10): 5/10 prior to ambulation. Pt reports that at baseline, his pain is typically a 9/10 OBJECTIVE: Strength: MMT: Right Left Shoulder Flexion WFL WFL Elbow Flexion WFL WFL Wrist Extension WFL WFL Databases Software Consultant WFL WFL (5= normal, 4= good, 3= fair, 2= poor, 1= trace) ROM: Both upper extremities, WFL Functional Transfer: Assistive Device: Front wheeled walker Transfer Ability: SBA ADL: Upper body dressing: Assistive device: None Upper body dressing ability: Independent Lower body dressing: Assistive device: None Lower body dressing ability: SBA Toileting: Assistive device: Raised toilet seat Toileting ability: SBA Grooming/hygiene: Standing Assistive device: None Grooming ability: SBA Bathing: Assistive device: Shower chair. Mod(I) tub transfer with grab bars and shower chair. Bathing ability: Minimum assistance Standardized Assessment: Chapo Index of Activities of Daily Livin/20 at initial evaluation (10/17). 1820 at discharge (10/28/17) ASSESSMENT: "Lin" presented to [facility] with increased assist required for ADLs/ IADLs s/p L2-L5 laminectomies and decreased muscle activation in R LE secondary to seroma around surgical site. He has improved (I) and mobility and has elected to continue skilled rehab and care at [facility]. Problem List/Current Limitations: Pain Decreased strength Decreased sensation Decreased coordination Decreased balance Generalized weakness Short Term Goals: 1) Pt will be Mod (I) LB dressing. GOAL MET. 2) Pt will be SBA grooming/hygiene. GOAL MET. 3) Pt will be SBA toilet task. GOAL MET. 4) Pt will be SBA shower task. GOAL MET. 5) Pt will be SBA light meal prep. GOAL NOT MET. 6) Pt Chapo Index of ADLs score will increase by 2 points. GOAL MET. Dispatch Clerk Goals: Return home with possible HH and support from family Patient Goals: "Breathe and walk better" Rehabilitation Prognosis: Good Barriers to Discharge: Pain, Weakness PLAN: Continue skilled rehab and care at [facility] prior to discharge home alone at [facility] outside of [place]. Thank you for this referral. If you have any questions, concerns, or comments about this report or plan, please contact me at . Judy Mcdonald MS, OTR/L Occupational Therapist [facility]
[2017-10-28] MEDS: DIAZEPAM 5 MG TAB PO PRN (13:01)
--- NOTE | 2017-10-28 17:00 | PT ECF NOTE ---
Type of Note: Discharge Summary Primary Medical Diagnosis: s/p L2-L5 laminectomies, with possible post operative seroma/hematoma Physical Therapy Discharge Date: 10/28/17 SUBJECTIVE: Prior Hospitalization: [facility]17 Prior Level of Function: Independent Prior Living Status: Multilevel house, Alone Community Services: Independent, No known needs Home Accessibility: 3 Stairs with rails Equipment Owned: Front wheeled walker Medical Complications/Past Medical History: See EMR Psychosocial Support: Supportive son and daughter in law Pain Scale (0-10): 8/10, mid back OBJECTIVE: Strength: Right Lower Extremity: DF: 0/5 no contraction palpated Knee flexion: 3/5 Knee extension: 3/5 Hip flexion: 3/5 Left Lower Extremity: DF: 5/5 Knee flexion:5/5 Knee extension:5/5 Hip flexion: 5/5 ROM: Lacks AROM against gravity on R) LE Sensation: decreased light touch sensation on the R) distal LE Other Neuro findings: R) LE weakness and diminished sensation s/p L2-L5 laminectomies Bed Mobility: SBA Transfers: SBA with RW Gait: SBA with RW 2x200' Stairs: CGA x 6 stairs (4") Timed Up and Go (>12 seconds indicated increased risk for falls): 26.9 seconds ASSESSMENT: The patient has progressed well with PT interventions and demonstrates increased functional activity tolerance and improved independence. He does not yet feel safe to d/c home alone and therefore a referral was made for [facility] to allow the pt to continue to work towards halfway goals. Problem List/Current Limitations: Pain Decreased activity aydee Decreased strength Decreased sensation Decreased ROM Decreased coordination Decreased balance Generalized weakness Short Term Goals: 1: Pt to complete bed mobility with Choco and log roll technique. (not met) 2: Pt to complete transfers with Choco and least restrictive AD (not met) 3: Pt to ambulate 200' with SBA and least restrictive AD (met) 4: Pt to asc/desc 4 stairs with SBA and use of railing. (not met) 5: Pt to demonstrate a marked decrease in TUG time to indicate a decreased risk of falls. (met) Correction Goals: Pt to d/c home with decreased risk of falls and increased need of assistance from others (not met) Patient Goals: Pt to d/c home (not met, pt discharged to halfway rehab facility) Rehabilitation Prognosis: Good PLAN: The patient will continue with skilled rehab at a halfway rehab facility prior to d/c home. Thank you for this referral. If you have any questions, concerns, or comments about this report or plan, please contact me at . Anabela Kelley, PT, DPT [facility]
--- NOTE | 2017-11-24 15:42 | DISCHARGE SUMMARY ---
ADMISSION DIAGNOSIS Post laminectomy weakness. DISCHARGE DIAGNOSIS Post laminectomy weakness. HOSPITAL COURSE Mr. Teixeira is an 82-year-old male who was initially admitted to the hospital on October 14, 2017 for lumbar laminectomy. He did relatively well postoperatively, but then was unable to mobilize with PT secondary to right lower extremity weakness. He was therefore admitted to the extended care unit for further physical therapy and care postoperatively. He had gradual improvement and slowly, but surely met Physical Therapy milestones throughout the course of his stay. He was ultimately discharged in improved condition on October 28, 2017. DIONISIO
== END 2017-10-28 13:00 | DRG 560 ==
LOC: ECF 11:20
PROVIDERS: ADMIT Orthopaedic Surgery; ATTEND Orthopaedic Surgery
DX: Z47.89 Encounter for other orthopedic aftercare (principal); J44.1 Chronic obstructive pulmonary disease with (acute) exacerbation; M62.81 Muscle weakness (generalized); E11.40 Type 2 diabetes mellitus with diabetic neuropathy, unspecified; I10 Essential (primary) hypertension; R50.82 Postprocedural fever; Z98.890 Other specified postprocedural states; Z88.0 Allergy status to penicillin; Z79.4 Long term (current) use of insulin; Z79.84 Long term (current) use of oral hypoglycemic drugs; Z87.891 Personal history of nicotine dependence; I25.10 Atherosclerotic heart disease of native coronary artery without angina pectoris; J30.1 Allergic rhinitis due to pollen
CPT/HCPCS: 36416; 81001; 82948; 94640; 94668; 97161; 97165; J7509

== ENCOUNTER 2017-10-31 18:43 | Inpatient (IN) | payer MEDICARE, OTHER ==
[~2017-10-31] VITALS: Ht 181.6 cm; Wt 80.1 kg
[~2017-10-31 18:43] MED LIST changes: +ACET-2043 PO; +DIA5 PO; +DOCU-202 PO; +HYDR-385 PO; +INSU100V24 SUBQ; +IPRA3AMP21 NEB; +MOM PO; +OXYC5TAB38 PO; +POLY17PO21 PO; +SODI30SP6
--- NOTE | 2017-10-31 18:44 | ER Report ---
History and Physical Time Seen By : 18:44 HPI/ROS CHIEF COMPLAINT: Hypoxia, deep cough HISTORY OF PRESENT ILLNESS: 82-year-old male status post laminectomy surgery back on 10/12/17. Patient has weakness in his right lower extremity. He was unable to go home. He was transferred to extended care on 10/17/17. He was recently discharged over to [facility]. He's been there for 2 days. Today longterm staff noted that he had hypoxia. His saturations were 72% on room air. He has a deep wet productive cough of yellow sputum which she expectorated. He does have history of COPD. They administered Tylenol nebulizer and placed him on O2. He wears O2 at night. Patient denies chest pain. The longterm staff documented a fever 99.4. They contacted Dr. Denise who advised the patient come to the ER for further evaluation. Patient states normal appetite and intake. He has some right lower extremity swelling that he's had since surgery. Both lower externally remedies demonstrate mild swelling, right greater than left. Patient denies dysuria, frequency or hematuria. REVIEW OF SYSTEMS: Respiratory: As above Cardiovascular: No chest pain, no palpitations. Gastrointestinal: No vomiting, no abdominal pain. Musculoskeletal: No back pain. Allergies: Coded Allergies: Penicillins (Verified Allergy, Severe, hives, 10/08/15) Home Meds Active Scripts Diazepam (VALIUM) 5 Mg Tablet, 5-10 MG PO Q6H Y for MUSCLE SPASMS, #30 TAB Prov:DYAN MORROW MD 10/26/17 Oxycodone Hcl (OXYCODONE HCL) 5 Mg Tablet, 5-10 MG PO Q3H Y for SEVERE PAIN, # 30 TAB Prov:DYAN MORROW MD 10/26/17 Insulin Lispro (HUMALOG) 100 Unit/1 Ml Vial, 2-10 UNIT SUBQ SS Y for SLIDING SCALE INSULIN, #1 VIAL Prov:DYAN MORROW MD 10/26/17 Sodium Chloride (SALINE NASAL SPRAY) 30 Ml [place], 0 ML NA PRN Y for CONGESTION, #1 BOTTLE Prov:DYAN MORROW MD 10/26/17 Polyethylene Glycol 3350 (POLYETHYLENE GLYCOL 3350) 17 Gm Powd.pack, 17 GM PO QDAY, #30 PACKET Prov:DYAN MORROW MD 10/26/17 Magnesium Hydroxide (MILK OF MAGNESIA) 400 Mg/5 Ml Oral.susp, 30 ML PO BID Y for CONSTIPATION, #30 UNITS Prov:DYAN MORROW MD 10/26/17 Ipratropium/Albuterol Sulfate (IPRAT-ALBUT 0.5-3(2.5) MG/3 ML) 3 Ml Ampul.neb, 3 ML NEB TIDR, #90 INH Prov:DYAN MORROW MD 10/26/17 Guaifenesin (MUCINEX) 600 Mg Tablet.er, 600 MG PO BID, #60 TAB Prov:DYAN MORROW MD 10/26/17 Docusate Sodium (DOCUSATE SODIUM) 100 Mg Capsule, 100 MG PO BID, #60 CAPSULE Prov:DYAN MORROW MD 10/26/17 Acetaminophen (ACETAMINOPHEN) 500 Mg Tablet, 500 MG PO Q6H Y for MILD PAIN, #30 TAB Prov:DYAN MORROW MD 10/26/17 Albuterol Sulfate (VENTOLIN HFA) 18 Gm Inh, 2 PUFF INH Q4-6H, #3 INH 4 Refills Prov:ZAHRA GONZALES MD 03/29/17 Losartan/Hydrochlorothiazide (LOSARTAN-HCTZ 100-12.5 MG TAB) 1 Each Tablet, 1 TAB PO QDAY, #90 TAB 4 Refills Prov:ZAHRA GONZALES MD 03/29/17 Amlodipine Besylate (AMLODIPINE BESYLATE) 10 Mg Tablet, 1 TAB PO QDAY, #90 TAB 4 Refills Prov:ZAHRA GONZALES MD 03/29/17 Glimepiride (GLIMEPIRIDE) 4 Mg Tablet, 1 TAB PO QDAY, #90 TAB 4 Refills Prov:ZAHRA GONZALES MD 03/29/17 Fluticasone/Salmeterol (ADVAIR 500-50 DISKUS) 1 Each Disk.w.dev, 1 PUFF IH BID, #3 INHALER 4 Refills Prov:ZAHRA GONZALES MD 03/29/17 Gabapentin (GABAPENTIN) 300 Mg Capsule, 1 CAP PO TID, #90 CAPSULE 3 Refills Prov:ZAHRA GONZALES MD 02/24/17 True Metrix Glucose Test Strip (True Metrix Glucose Test Strip) 1 Each Strip, 1 STRIP MC DAILY, #400 BOX 4 Refills Use to test blood sugars 4 times daily Prov:ZAHRA GONZALES MD 11/11/16 Metformin Hcl (METFORMIN HCL ER) 500 Mg Tabcr, 2 TAB PO QHS, #180 TAB 4 Refills Prov:ZAHRA GONZALES MD 11/11/16 Blood Sugar Diagnostic (TRUETEST TEST STRIPS) 1 Each Strip, 1 EACH MC QID, #400 STRIP 4 Refills Prov:ZAHRA GONZALES MD 10/08/15 Reported Medications Hydrocodone Bit/Acetaminophen (HYDROCODON-ACETAMINOPHEN 5-325) 1 Each Tablet, 1- 2 EACH PO Q4H for PAIN, #30 TAB 10/28/17 Nortriptyline Hcl (NORTRIPTYLINE HCL) 10 Mg Cap, 10 MG PO HS, CAP 10/06/17 Discontinued Reported Medications Hydrocodone Bit/Acetaminophen (HYDROCODON-ACETAMINOPHEN 5-325) 1 Each Tablet, 1- 2 EACH PO Q4H, TAB 10/28/17 Discontinued Scripts Ipratropium/Albuterol Sulfate (IPRAT-ALBUT 0.5-3(2.5) MG/3 ML) 3 Ml Ampul.neb, 3 ML IH QID Y for bronchitis, #30 VIAL 2 Refills Prov:ZAHRA GONZALES MD 07/22/17 Prednisone (PREDNISONE) 20 Mg Tablet, 2 TAB PO QDAY Y for bronchitis, #60 TAB 2 Refills Prov:ZAHRA GONZALES MD 03/29/17 Reviewed Nurses Notes: Yes Old Medical Records Reviewed: Yes Hx Smoking: Yes (Smoked x5-10 years) Smoking Status: Former Smoker Exposure to Second Hand Smoke?: No Hx Substance Use Disorder: No Hx Alcohol Use: Yes Constitutional Vital Sign - Last 24 Hours 10/31/17 10/31/17 10/31/17 10/31/17 18:49 18:50 18:50 18:53 Temp 98.1 Pulse 97 95 Resp 20 B/P (MAP) 113/69 (84) 113/69 Pulse Ox 86 O2 Delivery Room Air O2 Flow Rate 3.0 10/31/17 10/31/17 10/31/17 10/31/17 18:58 19:00 19:03 19:08 Pulse 94 92 92 Resp 18 B/P (MAP) 122/65 (84) Pulse Ox 91 93 2/19/18 2/19/18 2/19/18 2/19/18 19:08 19:08 19:12 19:13 Pulse 93 93 90 Resp 18 Pulse Ox 93 90 O2 Delivery Nasal Cannula O2 Flow Rate 3.0 18 2//18 2//18 2/18 19:18 19:23 19:28 19:33 Pulse 93 91 88 Resp 12 32 Pulse Ox 91 92 93 93 18 2/18 2/18 218 19:43 19:48 19:53 19:58 Pulse 86 86 89 89 Resp 10 19 Pulse Ox 93 93 94 10/31/18 2/18 2//18 218 20:00 20:03 20:08 20:13 Pulse 88 87 85 Resp 22 13 12 B/P (MAP) 119/61 (80) Pulse Ox 93 93 88 10/31/18 2//18 2//18 2/18 20:18 20:19 20:23 20:28 Pulse 84 84 86 Resp 14 18 21 Pulse Ox 90 90 91 92 O2 Delivery Nasal Cannula O2 Flow Rate 4 10/31/18 2/18 2//18 218 20:30 20:33 20:58 21:03 Pulse 192 Resp 19 18 B/P (MAP) 117/66 (83) 127/66 (86) Pulse Ox 94 97 10/31/18 2//18 2//18 2//18 21:08 21:13 21:18 21:23 Pulse 84 85 84 87 Resp 8 14 12 Pulse Ox 96 94 92 93 10/31/18 2//18 2//18 2/18 21:28 21:30 21:33 21:38 Pulse 88 92 98 Resp 13 26 21 B/P (MAP) 126/63 (84) Pulse Ox 93 94 10/31/18 2//18 2//18 2//18 21:43 21:48 21:53 21:58 Pulse 85 83 85 87 Resp 12 17 18 Pulse Ox 95 91 92 93 10/31/18 2//18 2//18 2//18 22:00 22:03 22:08 22:13 Pulse 85 85 88 Resp 15 15 B/P (MAP) 121/70 (87) Pulse Ox 92 93 93 2/19/18 2/19/18 22:18 22:23 Pulse 85 87 Resp 11 18 Pulse Ox 95 93 Physical Exam Vital signs stable, pulse ox 86% on room air. Patient requiring 3 L to get a 91 % General Appearance: The patient is alert, has no immediate need for airway protection and no current signs of toxicity. No acute distress, deep wet cough noted HEENT: Pupils equal and round no injection. Oropharynx with moderate erythema, dry mucous membranes Respiratory: Chest is non tender, decreased breath sounds throughout, faint expiratory wheezing, no Rales appreciated Cardiac: regular rate and rhythm Gastrointestinal: Abdomen is soft and non tender, no masses, bowel sounds normal. Musculoskeletal: Neck: Neck is supple and non tender. No JVD, no lymphadenopathy Extremities have full range of motion and are non tender. There is 2+ edema to the right lower extremity 1+ edema to the left. There is no calf tenderness or Homans sign noted Skin: No rashes or lesions. DIFFERENTIAL DIAGNOSIS: After history and physical exam differential diagnosis was considered for shortness of breath including but not limited to pulmonary infectious process, COPD, asthma, pulmonary embolus and congestive heart failure. Medical Decision Making Data Points Result Diagram: 11/01/17 0514 11/01/17 0514 Laboratory Hematology Test 10/31/17 00:00 10/31/17 19:00 10/31/17 19:08 10/31/17 19:34 Respiratory Syncytial Virus (PCR) Positive (NEGATIVE) Peripheral Blood Smear Yes Y/N D-Dimer Quantitative (PE/DVT) 2.92 ug/ml (0-0.50) Lactate 1.1 mmol/L (0.7-2.1) C-Reactive Protein 4.2 mg/dl (<1.0) Influenza Virus Type A (PCR) Negative (NEGATIVE) Influenza Virus Type B (PCR) Negative (NEGATIVE) Urine Color Yellow Urine Clarity Clear Urine pH 5.0 pH (4.8-9.5) Urine Specific [place] 1.012 Urine Protein Negative mg/dL (NEGATIVE) Urine Glucose (UA) Negative mg/dL (NEGATIVE) Urine Ketones Negative mg/dL (NEGATIVE) Urine Blood Negative (NEGATIVE) Urine Nitrite Negative (NEGATIVE) Urine Bilirubin Negative (NEGATIVE) Urine Urobilinogen Negative mg/dL (0.2-1.9) Urine Leukocyte Esterase Trace (NEGATIVE) Urine RBC None /HPF (0-2/HPF) Urine WBC <1 /HPF (0-5/HPF) Urine Squamous Epithelial Cells None /LPF (</=FEW) Urine Bacteria Negative /HPF (NONE-FEW) Urine Hyaline Casts Few /LPF (NONE-FEW) Urine Mucus None /HPF (NONE-FEW) Chemistry Test 10/31/17 00:00 2 19:00 10/31/17 19:08 10/31/17 19:34 Respiratory Syncytial Virus (PCR) Positive (NEGATIVE) Peripheral Blood Smear Yes Y/N D-Dimer Quantitative (PE/DVT) 2.92 ug/ml (0-0.50) Lactate 1.1 mmol/L (0.7-2.1) C-Reactive Protein 4.2 mg/dl (<1.0) Influenza Virus Type A (PCR) Negative (NEGATIVE) Influenza Virus Type B (PCR) Negative (NEGATIVE) Urine Color Yellow Urine Clarity Clear Urine pH 5.0 pH (4.8-9.5) Urine Specific [place] 1.012 Urine Protein Negative mg/dL (NEGATIVE) Urine Glucose (UA) Negative mg/dL (NEGATIVE) Urine Ketones Negative mg/dL (NEGATIVE) Urine Blood Negative (NEGATIVE) Urine Nitrite Negative (NEGATIVE) Urine Bilirubin Negative (NEGATIVE) Urine Urobilinogen Negative mg/dL (0.2-1.9) Urine Leukocyte Esterase Trace (NEGATIVE) Urine RBC None /HPF (0-2/HPF) Urine WBC <1 /HPF (0-5/HPF) Urine Squamous Epithelial Cells None /LPF (</=FEW) Urine Bacteria Negative /HPF (NONE-FEW) Urine Hyaline Casts Few /LPF (NONE-FEW) Urine Mucus None /HPF (NONE-FEW) Coagulation Test 10/31/17 19:00 D-Dimer Quantitative (PE/DVT) 2.92 ug/ml Urinalysis Test 10/31/17 19:34 Urine Color Yellow Urine Clarity Clear Urine pH 5.0 pH (4.8-9.5) Urine Specific [place] 1.012 Urine Protein Negative mg/dL (NEGATIVE) Urine Glucose (UA) Negative mg/dL (NEGATIVE) Urine Ketones Negative mg/dL (NEGATIVE) Urine Blood Negative (NEGATIVE) Urine Nitrite Negative (NEGATIVE) Urine Bilirubin Negative (NEGATIVE) Urine Urobilinogen Negative mg/dL (0.2-1.9) Urine Leukocyte Esterase Trace (NEGATIVE) Urine RBC None /HPF (0-2/HPF) Urine WBC <1 /HPF (0-5/HPF) Urine Squamous Epithelial Cells None /LPF (</=FEW) Urine Bacteria Negative /HPF (NONE-FEW) Urine Hyaline Casts Few /LPF (NONE-FEW) Urine Mucus None /HPF (NONE-FEW) Microbiology Microbiology Date/Time Source Procedure Growth Status 10/31/17 19:20 Blood Peripheral Draw Blood Culture - Preliminary NO GROWTH AFTER 1 DAY, REINCUBATED Resulted 10/31/17 19:00 Blood Peripheral Draw Blood Culture - Preliminary NO GROWTH AFTER 1 DAY, REINCUBATED Resulted 10/31/17 19:00 Sputum Gram Stain - Final Resulted 10/31/17 19:00 Sputum Sputum Culture - Preliminary Resulted 10/31/17 19:34 Clean Catch Midstream Ur Urine Culture - Preliminary NO GROWTH AFTER 1 DAY, REINCUBATED Resulted EKG/Imaging EKG Interpretation 12 lead EK Rhythm: normal sinus rhythm [place]: normal QRS: normal ST segments: normal, no evidence of ischemia or dysrhythmia Imaging X-ray: Two-view chest x-ray was obtained. I viewed the images myself on the PACS system. My interpretation of the images is: No infiltrate, no effusion, normal mediastinum., Comparison to previous chest x-ray dated 10/01/13. The radiologist interpretation had no clinically significant variation from this interpretation. Results: CT scan of the CTA pulmonary angiogram was obtained. The results of the study are CTA CHEST WW/O CNTR (PULM ANG) HISTORY: Elevated d-dimer. COMPARISON: Chest x-ray earlier same day. Prior CT pulmonary angiogram chest . TECHNIQUE: Pulmonary embolus protocol - Thin-slice axial imaging of the chest was performed during maximal pulmonary arterial opacification with intravenous nonionic iodinated contrast. 3D coronal slab MIPs and 2D reconstructions in the coronal and sagittal planes were performed to aid in pulmonary embolus detection. Outbound Call Center Representative images have been stored on PACS. One of the following dose optimization techniques was utilized in the performance of this exam: Automated exposure control; adjustment of the mA and/ or kV according to the patient's size; or use of an iterative reconstruction technique. Specific details can be referenced in the facility's radiology CT exam operational policy. CONTRAST: 75 mL of IV Isovue-370. FINDINGS: Pulmonary arteries: There is adequate opacification of the pulmonary arteries to the segmental branches. There are small subsegmental filling defects in the left upper lobe, the left lower lobe, and the right upper lobe. Pulmonary arteries are normal in caliber. Thoracic inlet: Left lobe of the thyroid is enlarged, measuring 4.1 cm, and containing coarse calcifications inferiorly. There are coarse calcifications in the superior right and left lobes. There is a 2.4 cm nodule in the inferior left lobe of the thyroid (coronal image 147), unchanged from 2010, compatible with a benign process. Findings may be due to multinodular goiter. Aorta: The left vertebral artery arises from the aortic arch. There is no aneurysm or dissection of the aorta or its branches. There is mild atherosclerosis of the aorta. Heart / Pericardium: The heart is normal. There is no ventricular septal deviation. There is no pericardial effusion. There is mild coronary artery calcification. Mediastinum / Carolyn: Normal mediastinum. There is a 1.6 cm short axis diameter right hilar lymph node (image 142), unchanged from 2010, compatible with a benign process. Lungs / Pleura: No pleural effusion. There is mild dependent atelectasis. There is wedge-shaped groundglass attenuation in the inferior right lower lobe laterally (image 58), new from prior study. It measures 2.6 cm average size. There is a 4 x 3 mm right middle lobe pulmonary nodule on image 62. There is a smaller one also on image 62. Both are unchanged from 2010, compatible with a benign process. There are nodular opacities in the left lower lobe on images 61 through 64, new from the previous examination. Largest nodule is 9 x 5 mm on image 62. No pneumothorax. There is mild bronchial wall thickening in the lower lobes bilaterally. Upper abdomen: There are coarse pancreatic calcifications, compatible with chronic pancreatitis. No acute pancreatitis. There is a small type I hiatal hernia. Musculoskeletal/vertebra/body wall: There is mild multilevel degenerative change of the spine. Vertebral body heights are maintained. Alignment is normal. There are prominent anterior osteophytes of the mid to lower thoracic spine. IMPRESSION: 1. Bilateral subsegmental pulmonary emboli involving both upper lobes and the left lower lobe. Overall clot burden is mild. No heart strain. 2. There is a 2.6 cm average size, wedge-shaped, groundglass density in the lateral inferior right upper lobe of uncertain etiology, although developing pulmonary infarct is a possibility. 3. Pulmonary nodules in the right lower lobe, the largest measuring 7 mm average size. 4. There is bronchial wall thickening in both lower lobes. This can be seen with acute or chronic bronchitis. The study was read by the radiologist. I viewed the images myself on the PACS system. ED Course/Re-evaluation Clinical Indication for ER IV: Hydration, IV Access ED Course Patient was admitted to an examination room. H&P was done. The differential diagnoses was considered. Patient was sent over from the longterm with hypoxia and increased coughing. Diagnostic evaluation was undertaken. His chest x-ray showed no obvious infiltrate. His RSV returned positive. His d- dimer was elevated to 2.[address] pulmonary angiogram was performed which showed multiple subsegmental pulmonary embolisms and a potential pulmonary infarct. Patient was much improved after nebulizers and slight Medrol. Case was discussed with Dr. Jennifer Morrow hospitalist accepts the patient for admission. 10/31/2017 10:14:11 pm case discussed with Kalia Morrow Decision to Disposition Date: Oct 31, 2017 Decision to Disposition Time: 22:14 Depart Departure Latest Vital Signs Vital Signs Date Time Temp Pulse Resp B/P (MAP) Pulse Ox O2 Delivery O2 Flow Rate FiO2 10/31/17 22:23 87 18 93 10/31/17 22:00 121/70 (87) 10/31/17 20:19 Nasal Cannula 4 10/31/17 18:50 98.1 Impression: Primary Impression: Pulmonary embolism Additional Impressions: COPD exacerbation RSV (acute bronchiolitis due to respiratory syncytial virus) Type II diabetes mellitus with neurological manifestations S/P laminectomy Leukopenia Condition: Improved Disposition: Admitted from ER Referrals: QUANG DENISE DO (PCP) Problem Qualifiers Primary Impression: Pulmonary embolism Pulmonary embolism type: other Chronicity: acute Acute cor pulmonale presence: without acute cor pulmonale Qualified Codes: I26.99 - Other pulmonary embolism without acute cor pulmonale Additional Impressions: Leukopenia Leukopenia type: unspecified Qualified Codes: D72.819 - Decreased white blood cell count, unspecified GELY BELCHER DO Oct 31, 2017 18:44
[2017-10-31] MEDS ORDERED: NS(*) 0.9% 500 ML BAG 500 ML IV ONE (18:52)
[2017-10-31] MEDS ORDERED: methylPREDNIS SUCC 125 MG/2ML IVP ONE (18:55)
[2017-10-31] MEDS ORDERED: ALBUTEROL/IPRATROPIUM 3 ML NEB NEB ONE (18:55)
[2017-10-31 19:16] LABS: PLATELET COUNT, AUTOMATED 307 K/uL (150-450)
--- NOTE | 2017-10-31 19:28 | EKG ---
FACILITY: [facility] PATIENT NAME: YUDITH HENDERSON : [id number] MR: [id number] V: [id number] EXAM DATE: ORDERING PHYSICIAN: GELY BELCHER TECHNOLOGIST: LAURA Chatman Reason : CARDIAC Blood Pressure : / mmHG Vent. Rate : 088 BPM Atrial Rate : 088 BPM P-R Int : 182 ms QRS Dur : 100 ms QT Int : 366 ms P-R-T Axes : 063 042 050 degrees QTc Int : 442 ms Sinus rhythm Nonspecific ST findings When compared with ECG of 13-SEP-2013 05:45, No significant change was found Confirmed by RHONDA JONES ([id number]) on 11/01/2017 1:15:01 AM Referred By: Confirmed By:RHONDA JONES
[2017-10-31] MEDS ORDERED: MORPHINE 2 MG/ML SYR IVP ONE (19:50)
--- NOTE | 2017-10-31 20:08 | RADIOLOGY IMAGING REPORT ---
FACILITY: [facility] [place] PATIENT NAME: Ever Teixeira : 1935 MR: [id number] V: [id number] EXAM DATE: ORDERING PHYSICIAN: GELY BELCHER TECHNOLOGIST: Location: [facility] Patient: Ever Teixeira : 1935 Visit/Account:[id number] Date of Sevice: 10/31/2017 2 VIEWS CHEST INDICATION: Fever. COMPARISON: 09/13/2013. FINDINGS: Cardiomediastinal silhouette and pulmonary vessels within normal limits. There is no focal infiltrate or lobar consolidation. There is no pneumothorax or pleural effusion. No nodule. Upper abdomen is unremarkable. No acute bony abnormality. IMPRESSION: 1. No acute cardiopulmonary process. Report Dictated By: Roger Gross at 10/31/2017 8:02 PM Report E-Signed By: Roger Gross at 10/31/2017 8:04 PM WSN:[id number]
[2017-10-31] MEDS ORDERED: HYDROmorphone(ER ONLY) 1 MG/ML IVP ONE (20:10)
[2017-10-31] MEDS ORDERED: IOPAMIDOL 76% 75 ML INFUS BTL 75 ML ONE (20:25)
--- NOTE | 2017-10-31 22:03 | RADIOLOGY IMAGING REPORT ---
FACILITY: [facility] [place] PATIENT NAME: Ever Teixeira : 1935 MR: [id number] V: [id number] EXAM DATE: ORDERING PHYSICIAN: GELY BELCHER TECHNOLOGIST: Location: [facility] [place] Patient: Ever Teixeira : 1935 Visit/Account:[id number] Date of Sevice: 10/31/2017 CTA CHEST WW/O CNTR (PULM ANG) HISTORY: Elevated d-dimer. COMPARISON: Chest x-ray earlier same day. Prior CT pulmonary angiogram chest 04/08/2010. TECHNIQUE: Pulmonary embolus protocol - Thin-slice axial imaging of the chest was performed during ma ximal pulmonary arterial opacification with intravenous nonionic iodinated contrast. 3D coronal slab MIPs and 2D reconstructions in the coronal and sagittal planes were performed to aid in pulmonary emb olus detection. Clam Dredger images have been stored on PACS. One of the following dose optimization techniques was utilized in the performance of this exam: Autom ated exposure control; adjustment of the mA and/or kV according to the patient's size; or use of an i terative reconstruction technique. Specific details can be referenced in the facility's radiology CT exam operational policy. CONTRAST: 75 mL of IV Isovue-370. FINDINGS: Pulmonary arteries: There is adequate opacification of the pulmonary arteries to the segmental branch es. There are small subsegmental filling defects in the left upper lobe, the left lower lobe, and the right upper lobe. Pulmonary arteries are normal in caliber. Thoracic inlet: Left lobe of the thyroid is enlarged, measuring 4.1 cm, and containing coarse calcifi cations inferiorly. There are coarse calcifications in the superior right and left lobes. There is a 2.4 cm nodule in the inferior left lobe of the thyroid (coronal image 147), unchanged from 2010, comp atible with a benign process. Findings may be due to multinodular goiter. Aorta: The left vertebral artery arises from the aortic arch. There is no aneurysm or dissection of t he aorta or its branches. There is mild atherosclerosis of the aorta. Heart / Pericardium: The heart is normal. There is no ventricular septal deviation. There is no peric ardial effusion. There is mild coronary artery calcification. Mediastinum / Carolyn: Normal mediastinum. There is a 1.6 cm short axis diameter right hilar lymph node (image 142), unchanged from 2010, compatible with a benign process. Lungs / Pleura: No pleural effusion. There is mild dependent atelectasis. There is wedge-shaped groun dglass attenuation in the inferior right lower lobe laterally (image 58), new from prior study. It me asures 2.6 cm average size. There is a 4 x 3 mm right middle lobe pulmonary nodule on image 62. There is a smaller one also on im age 63. Both are unchanged from 2010, compatible with a benign process. There are nodular opacities i n the left lower lobe on images 61 through 64, new from the previous examination. Largest nodule is 9 x 5 mm on image 62. No pneumothorax. There is mild bronchial wall thickening in the lower lobes bilaterally. Upper abdomen: There are coarse pancreatic calcifications, compatible with chronic pancreatitis. No a cute pancreatitis. There is a small type I hiatal hernia. Musculoskeletal/vertebra/body wall: There is mild multilevel degenerative change of the spine. Verteb ral body heights are maintained. Alignment is normal. There are prominent anterior osteophytes of the mid to lower thoracic spine. IMPRESSION: 1. Bilateral subsegmental pulmonary emboli involving both upper lobes and the left lower lobe. Overal l clot burden is mild. No heart strain. 2. There is a 2.6 cm average size, wedge-shaped, groundglass density in the lateral inferior right up per lobe of uncertain etiology, although developing pulmonary infarct is a possibility. 3. Pulmonary nodules in the right lower lobe, the largest measuring 7 mm average size. 4. There is bronchial wall thickening in both lower lobes. This can be seen with acute or chronic bro nchitis. These findings were discussed by phone with GELY BELCHER on 10/21/2017 9:57 PM. Current Fleischner Society recommendations for incidental pulmonary nodules 6-8mm (average of long an d short axis):- In a patient with low risk for malignancy (i.e., minimal or absent smoking history, no known malignancy or other risk factors): Noncontrast CT at 6-12 months, then consider CT at 18-24 months. - In a patient at high risk for malignancy (e.g., smoking history and/or other known risk factors): Noncontrast CT at 6-12 months, then CT at 18-24 months. If unchanged no further follow-up necessary. Current Fleischner Society recommendations for subsolid nodules: - Single ground glass nodule greater than or equal to 6 mm: Noncontrast CT at 6-12 months to confirm persistence, then CT every 2 years until 5 years. Aubrey Torres, Beryl Edward, Theresa J, et al. Guidelines for management of small pulmonary nodules detected on CT images: from the Fleischner society 2017. Report Dictated By: Miranda Foster at 10/31/2017 9:29 PM Report E-Signed By: Miranda Foster at 10/31/2017 10:00 PM WSN:[id number]
--- NOTE | 2017-10-31 22:05 | RADIOLOGY IMAGING REPORT ---
FACILITY: [facility] [place] PATIENT NAME: Ever Teixeira : 1935 MR: [id number] V: [id number] EXAM DATE: ORDERING PHYSICIAN: GELY BELCHER TECHNOLOGIST: Location: [facility] Patient: Ever Teixeira : 1935 Visit/Account:[id number] Date of Sevice: 10/31/2017 VENOUS DOPP LOW RIGHT EXTREMIT HISTORY: Edema of the right calf. Status post laminectomy. COMPARISON STUDIES: CT pulmonary angiogram chest earlier same day. FINDINGS: Grayscale compression, duplex and color Doppler interrogation of the right lower extremity deep veins from common femoral vein to proximal calf was performed. The greater saphenous vein in the ipsilater al proximal thigh was evaluated using similar technique. Imaging of the contralateral common femoral vein was obtained for comparison. Right lower extremity: Common femoral vein: Normal. Deep femoral vein: Normal. Femoral vein: Normal. Popliteal vein: Normal. Visualized deep calf veins: Normal. Greater saphenous vein in the proximal thigh: Normal. Popliteal fossa: Normal. Additional findings: There is nonocclusive thrombus filling the greater saphenous vein at and just be low the knee. There is edema in the right calf. Left common femoral vein: Normal. IMPRESSION: 1. There is no evidence for deep venous thrombosis of the right lower extremity. 2. There is nonocclusive thrombus within the greater saphenous vein at and just below the knee. 3. Right calf edema. Report Dictated By: Miranda Foster at 10/31/2017 10:00 PM Report E-Signed By: Miranda Foster at 10/31/2017 10:03 PM WSN:[id number]
[2017-10-31] MEDS ORDERED: NS(*) 0.9% 1000 ML BAG 1,000 ML IV PRN (23:12)
[2017-10-31] MEDS ORDERED: DIAZEPAM 5 MG TAB PO PRN (23:15)
[2017-10-31] MEDS ORDERED: SALINE 0.65% NAS SPR 44 ML BTL PRN (23:15)
[2017-10-31] MEDS ORDERED: ALBUTEROL 2.5 MG/3 ML NEB NEB PRN (23:15)
--- NOTE | 2017-10-31 23:42 | History & Physical ---
History of Present Illness Chief Complaint Short of breath History of Present Illness 82yo male with PMHx significant for COPD, HTN, type 2 DM, recent lumbar fusion. He was transferred to [facility] 4 days ago to continue his rehabilitation following surgery. Over these past few days he reports increasing dyspnea, wheezing, cough with tenacious sputum. He did not appreciate any significant fevers or chills. No CP, but did have some pain in low back/lumbar region. He denied any leg pain or swelling. No N/V/diarrhea. No history of bleeding or clotting problems. He was evaluated in the ER and found to have significant hypoxia as well as an elevated d-dimer. His CT pulmonary angiogram was positive for PE. His influenza was negative, but RSV testing was positive. He was recommended for admission. 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 (7) Allergic rhinitis due to pollen Status: Chronic Home Meds Active Scripts Diazepam (VALIUM) 5 Mg Tablet, 5-10 MG PO Q6H Y for MUSCLE SPASMS, #30 TAB Prov:DYAN JONES MD 10/26/17 Oxycodone Hcl (OXYCODONE HCL) 5 Mg Tablet, 5-10 MG PO Q3H Y for SEVERE PAIN, # 30 TAB Prov:DYAN JONES MD 10/26/17 Insulin Lispro (HUMALOG) 100 Unit/1 Ml Vial, 2-10 UNIT SUBQ SS Y for SLIDING SCALE INSULIN, #1 VIAL Prov:DYAN JONES MD 10/26/17 Sodium Chloride (SALINE NASAL SPRAY) 30 Ml [place]oman, 0 ML NA PRN Y for CONGESTION, #1 BOTTLE Prov:DYAN JONES MD 10/26/17 Polyethylene Glycol 3350 (POLYETHYLENE GLYCOL 3350) 17 Gm Powd.pack, 17 GM PO QDAY, #30 PACKET Prov:DYAN JONES MD 10/26/17 Magnesium Hydroxide (MILK OF MAGNESIA) 400 Mg/5 Ml Oral.susp, 30 ML PO BID Y for CONSTIPATION, #30 UNITS Prov:DYAN JONES MD 10/26/17 Ipratropium/Albuterol Sulfate (IPRAT-ALBUT 0.5-3(2.5) MG/3 ML) 3 Ml Ampul.neb, 3 ML NEB TIDR, #90 INH Prov:DYAN JONES MD 10/26/17 Guaifenesin (MUCINEX) 600 Mg Tablet.er, 600 MG PO BID, #60 TAB Prov:DYAN JONES MD 10/26/17 Docusate Sodium (DOCUSATE SODIUM) 100 Mg Capsule, 100 MG PO BID, #60 CAPSULE Prov:DYAN JONES MD 10/26/17 Acetaminophen (ACETAMINOPHEN) 500 Mg Tablet, 500 MG PO Q6H Y for MILD PAIN, #30 TAB Prov:DYAN JONES MD 10/26/17 Albuterol Sulfate (VENTOLIN HFA) 18 Gm Inh, 2 PUFF INH Q4-6H, #3 INH 4 Refills Prov:ZAHRA GONZALES MD 03/29/17 Losartan/Hydrochlorothiazide (LOSARTAN-HCTZ 100-12.5 MG TAB) 1 Each Tablet, 1 TAB PO QDAY, #90 TAB 4 Refills Prov:ZAHRA GONZALES MD 03/29/17 Amlodipine Besylate (AMLODIPINE BESYLATE) 10 Mg Tablet, 1 TAB PO QDAY, #90 TAB 4 Refills Prov:ZAHRA GONZALES MD 03/29/17 Glimepiride (GLIMEPIRIDE) 4 Mg Tablet, 1 TAB PO QDAY, #90 TAB 4 Refills Prov:ZAHRA GONZALES MD 03/29/17 Fluticasone/Salmeterol (ADVAIR 500-50 DISKUS) 1 Each Disk.w.dev, 1 PUFF IH BID, #3 INHALER 4 Refills Prov:ZAHRA GONZALES MD 03/29/17 Gabapentin (GABAPENTIN) 300 Mg Capsule, 1 CAP PO TID, #90 CAPSULE 3 Refills Prov:ZAHRA GONZALES MD 02/24/17 True Metrix Glucose Test Strip (True Metrix Glucose Test Strip) 1 Each Strip, 1 STRIP MC DAILY, #400 BOX 4 Refills Use to test blood sugars 4 times daily Prov:ZAHRA GONZALES MD 11/11/16 Metformin Hcl (METFORMIN HCL ER) 500 Mg Tabcr, 2 TAB PO QHS, #180 TAB 4 Refills Prov:ZAHRA GONZALES MD 11/11/16 Blood Sugar Diagnostic (TRUETEST TEST STRIPS) 1 Each Strip, 1 EACH MC QID, #400 STRIP 4 Refills Prov:ZAHRA GONZALES MD 10/08/15 Reported Medications Hydrocodone Bit/Acetaminophen (HYDROCODON-ACETAMINOPHEN 5-325) 1 Each Tablet, 1- 2 EACH PO Q4H for PAIN, #30 TAB 10/28/17 Nortriptyline Hcl (NORTRIPTYLINE HCL) 10 Mg Cap, 10 MG PO HS, CAP 10/06/17 Discontinued Reported Medications Hydrocodone Bit/Acetaminophen (HYDROCODON-ACETAMINOPHEN 5-325) 1 Each Tablet, 1- 2 EACH PO Q4H, TAB 10/28/17 Discontinued Scripts Ipratropium/Albuterol Sulfate (IPRAT-ALBUT 0.5-3(2.5) MG/3 ML) 3 Ml Ampul.neb, 3 ML IH QID Y for bronchitis, #30 VIAL 2 Refills Prov:ZAHRA GONZALES MD 07/22/17 Prednisone (PREDNISONE) 20 Mg Tablet, 2 TAB PO QDAY Y for bronchitis, #60 TAB 2 Refills Prov:ZAHRA GONZALES MD 03/29/17 Allergies: Coded Allergies: Penicillins (Verified Allergy, Severe, hives, 10/08/15) Patient History: FH: dementia MOTHER, , Age:92 FH: diabetes mellitus MOTHER, , Age:92 FH: lung disease FATHER, , Age:88 Hx Smoking: Yes (Smoked x5-10 years) Smoking Status: Former Smoker Exposure to Second Hand Smoke?: No Caffeine Intake: Coffee, Tea Caffeine/Cups Per Day: 1 cup coffee for breakfast, then drinks green or herbal tea Hx Alcohol Use: Yes Hx Substance Use Disorder: No Social Drug Use: Never Review of Systems Constitutional: No Fever, No Chills Neurological: No Syncope, No Confusion, No Weakness Eyes: No Vision Change, No Loss of Vision ENT: Sinus Congestion, Sore Throat, No Hearing Loss Cardiovascular: No Chest Pain, No Palpitations Respiratory: Shortness of Breath, Cough, Wheezing Gastrointestinal: No Nausea, No Vomiting, No Diarrhea, No Hematemesis, No Hematochezia, No Melena, No Abdominal Pain Genitourinary: No Dysuria, No Hematuria Musculoskeletal: Pain, Impaired Mobility Psychiatric: No Depression, No Anxiety Exam Vital Signs Vital Signs Date Time Temp Pulse Resp B/P (MAP) Pulse Ox O2 Delivery O2 Flow Rate FiO2 10/31/17 22:46 97.9 88 20 96 Oxy Mask 3.5 10/31/17 22:00 121/70 (87) General Appearance: Alert, Awake Neuro: No Gross deficits Eyes: PERRLA ENT: Oropharynx Clear (mucosa somewhat dry) Neck: No Masses Cardiovascular: Regular Rate and Rhythm, No JVD Respiratory: Other (diffuse rhonchi with expiratory wheezes throughout) Chest: No Tenderness GI: Abd Soft and Non-Tender : No CVA Tenderness Musculoskeletal: Other (lumbar spine surgical scar is well healed) Extremities: Warm, Perfused Integumentary: Generalized Fragile Skin Psych: Alert & Oriented X3 Medical Decision Making Data Points Result Diagram: 10/31/17189910/31/171899 Item Value Date Time D-Dimer Quantitative (PE/DVT) 2.92 ug/ml H 10/31/17 1900 Urine Mucus None /HPF 10/31/171933 Urine Hyaline Casts Few /LPF 10/31/171933 Urine Bacteria Negative /HPF 10/31/171933 Urine Squamous Epithelial Cells None /LPF 10/31/171933 Urine WBC <1 /HPF 10/31/171933 Urine RBC None /HPF 10/31/171933 Urine Leukocyte Esterase Trace H 10/31/171933 Urine Urobilinogen Negative mg/dL 10/31/171933 Urine Bilirubin Negative 10/31/171933 Urine Nitrite Negative 10/31/171933 Urine Blood Negative 10/31/171933 Urine Ketones Negative mg/dL 10/31/171933 Urine Glucose (UA) Negative mg/dL 10/31/171933 Urine Protein Negative mg/dL 10/31/171933 Urine Specific [place] 1.012 10/31/171933 Urine pH 5.0 pH 10/31/171933 Urine Clarity Clear 10/31/171933 Urine Color Yellow 10/31/171933 Influenza Virus Type A (PCR) Negative 10/31/171907 Influenza Virus Type B (PCR) Negative 10/31/171907 Respiratory Syncytial Virus (PCR) Positive 10/31/17 0000 Albumin 3.5 g/dl 10/31/171899 Total Protein 6.4 gm/dl 10/31/171899 C-Reactive Protein 4.2 mg/dl H 10/31/171899 Alkaline Phosphatase 62 U/L 10/31/171899 Alanine Aminotransferase (ALT/SGPT) 31 U/L 10/31/171899 Aspartate Amino Transf (AST/SGOT) 18 U/L 10/31/171899 Total Bilirubin 0.4 mg/dl 10/31/171899 Calcium Level 9.3 mg/dl 10/31/171899 Lactate 1.1 mmol/L 10/31/171899 EKG / Imaging Imaging PATIENT NAME: Ever Teixeira : 1935 MR: [id number] V: [id number] EXAM DATE: ORDERING PHYSICIAN: GELY BELCHER TECHNOLOGIST: Location: [facility] [place] Patient: Ever Teixeira : 1935 Visit/Account:[id number] Date of Sevice: 10/31/2017 CTA CHEST WW/O CNTR (PULM ANG) HISTORY: Elevated d-dimer. COMPARISON: Chest x-ray earlier same day. Prior CT pulmonary angiogram chest . TECHNIQUE: Pulmonary embolus protocol - Thin-slice axial imaging of the chest was performed during maximal pulmonary arterial opacification with intravenous nonionic iodinated contrast. 3D coronal slab MIPs and 2D reconstructions in the coronal and sagittal planes were performed to aid in pulmonary embolus detection. Hand Fretted Instrument Maker images have been stored on PACS. One of the following dose optimization techniques was utilized in the performance of this exam: Automated exposure control; adjustment of the mA and/ or kV according to the patient's size; or use of an iterative reconstruction technique. Specific details can be referenced in the facility's radiology CT exam operational policy. CONTRAST: 75 mL of IV Isovue-370. FINDINGS: Pulmonary arteries: There is adequate opacification of the pulmonary arteries to the segmental branches. There are small subsegmental filling defects in the left upper lobe, the left lower lobe, and the right upper lobe. Pulmonary arteries are normal in caliber. Thoracic inlet: Left lobe of the thyroid is enlarged, measuring 4.1 cm, and containing coarse calcifications inferiorly. There are coarse calcifications in the superior right and left lobes. There is a 2.4 cm nodule in the inferior left lobe of the thyroid (coronal image 147), unchanged from 2010, compatible with a benign process. Findings may be due to multinodular goiter. Aorta: The left vertebral artery arises from the aortic arch. There is no aneurysm or dissection of the aorta or its branches. There is mild atherosclerosis of the aorta. Heart / Pericardium: The heart is normal. There is no ventricular septal deviation. There is no pericardial effusion. There is mild coronary artery calcification. Mediastinum / Carolyn: Normal mediastinum. There is a 1.6 cm short axis diameter right hilar lymph node (image 142), unchanged from 2010, compatible with a benign process. Lungs / Pleura: No pleural effusion. There is mild dependent atelectasis. There is wedge-shaped groundglass attenuation in the inferior right lower lobe laterally (image 58), new from prior study. It measures 2.6 cm average size. There is a 4 x 3 mm right middle lobe pulmonary nodule on image 62. There is a smaller one also on image 62. Both are unchanged from 2010, compatible with a benign process. There are nodular opacities in the left lower lobe on images 61 through 64, new from the previous examination. Largest nodule is 9 x 5 mm on image 62. No pneumothorax. There is mild bronchial wall thickening in the lower lobes bilaterally. Upper abdomen: There are coarse pancreatic calcifications, compatible with chronic pancreatitis. No acute pancreatitis. There is a small type I hiatal hernia. Musculoskeletal/vertebra/body wall: There is mild multilevel degenerative change of the spine. Vertebral body heights are maintained. Alignment is normal. There are prominent anterior osteophytes of the mid to lower thoracic spine. IMPRESSION: 1. Bilateral subsegmental pulmonary emboli involving both upper lobes and the left lower lobe. Overall clot burden is mild. No heart strain. 2. There is a 2.6 cm average size, wedge-shaped, groundglass density in the lateral inferior right upper lobe of uncertain etiology, although developing pulmonary infarct is a possibility. 3. Pulmonary nodules in the right lower lobe, the largest measuring 7 mm average size. 4. There is bronchial wall thickening in both lower lobes. This can be seen with acute or chronic bronchitis. These findings were discussed by phone with GELY BELCHER on 10/21/2017 9:57 PM. Current Fleischner Society recommendations for incidental pulmonary nodules 6- 8mm (average of long and short axis):- In a patient with low risk for malignancy (i.e., minimal or absent smoking history, no known malignancy or other risk factors): Noncontrast CT at 6-12 months, then consider CT at 18-24 months. - In a patient at high risk for malignancy (e.g., smoking history and/or other known risk factors): Noncontrast CT at 6-12 months, then CT at 18-24 months. If unchanged no further follow-up necessary. Current Fleischner Society recommendations for subsolid nodules: - Single ground glass nodule greater than or equal to 6 mm: Noncontrast CT at 6- 12 months to confirm persistence, then CT every 2 years until 5 years. Aubrey H, Beryl D, Theresa J, et al. Guidelines for management of small pulmonary nodules detected on CT images: from the Fleischner society 2017. Report Dictated By: Miranda Foster at 10/31/2017 9:29 PM Report E-Signed By: Miranda Foster at 10/31/2017 10:00 PM WSN:[id number] PATIENT NAME: Ever Teixeira : 1935 MR: [id number] V: [id number] EXAM DATE: [id number] ORDERING PHYSICIAN: GELY BELCHER TECHNOLOGIST: Location: [facility] [place] Patient: Ever Teixeira : 1935 Visit/Account:[id number] Date of Sevice: 10/31/2017 VENOUS DOPP LOW RIGHT EXTREMIT HISTORY: Edema of the right calf. Status post laminectomy. COMPARISON STUDIES: CT pulmonary angiogram chest earlier same day. FINDINGS: Grayscale compression, duplex and color Doppler interrogation of the right lower extremity deep veins from common femoral vein to proximal calf was performed. The greater saphenous vein in the ipsilateral proximal thigh was evaluated using similar technique. Imaging of the contralateral common femoral vein was obtained for comparison. Right lower extremity: Common femoral vein: Normal. Deep femoral vein: Normal. Femoral vein: Normal. Popliteal vein: Normal. Visualized deep calf veins: Normal. Greater saphenous vein in the proximal thigh: Normal. Popliteal fossa: Normal. Additional findings: There is nonocclusive thrombus filling the greater saphenous vein at and just below the knee. There is edema in the right calf. Left common femoral vein: Normal. IMPRESSION: 1. There is no evidence for deep venous thrombosis of the right lower extremity. 2. There is nonocclusive thrombus within the greater saphenous vein at and just below the knee. 3. Right calf edema. Report Dictated By: Miranda Foster at 10/31/2017 10:00 PM Report E-Signed By: Miranda Foster at 10/31/2017 10:03 PM WSN:[id number] PATIENT NAME: Ever Teixeira : 1935 MR: [id number] V: [id number] EXAM DATE: ORDERING PHYSICIAN: GELY BELCHER TECHNOLOGIST: Location: [facility] [place] Patient: Ever Teixeira : 1935 Visit/Account:[id number] Date of Sevice: 10/31/2017 2 VIEWS CHEST INDICATION: Fever. COMPARISON: 09/13/2013. FINDINGS: Cardiomediastinal silhouette and pulmonary vessels within normal limits. There is no focal infiltrate or lobar consolidation. There is no pneumothorax or pleural effusion. No nodule. Upper abdomen is unremarkable. No acute bony abnormality. IMPRESSION: 1. No acute cardiopulmonary process. Report Dictated By: Roger Gross at 10/31/2017 8:02 PM Report E-Signed By: Roger Gross at 10/31/2017 8:04 PM WSN:[id number] Assessment and Plan Problems: (1) Pulmonary embolism Status: Acute Assessment & Plan: He appears to be fairly stable from this standpoint. Most likely related to his rather sedentary state following his recent surgery. Will place him on Lovenox 80mg SQ q12hrs. He is interested in either Xarelto or Eliquis (rather than warfarin) if he has reasonable insurance coverage. (2) COPD exacerbation Status: Acute Assessment & Plan: He has a fair amount of bronchospasm currently. Will give him respiratory treatments and supplemental oxygen as needed. Will continue IV steroids. He does not have an infiltrate on CXR or CT scan. He did test positive for the RSV, which is probably contributing to the acute exacerbation. (3) Type 2 diabetes mellitus Status: Chronic Assessment & Plan: Will place on ADA diet, continue his Amaryl and metformin, check glucoses, and use SSI as needed. The steroids will most likely cause some elevation of his glucose levels. (4) Essential hypertension Status: Chronic Assessment & Plan: Monitor BPs and resume his amlodipine and losartan as needed. (5) S/P laminectomy Status: Chronic Assessment & Plan: Will continue his diazepam and Lortab for pain/spasm control. Will have PT see him as well. Will let Dr. Cabezas know of his admission. Copies to: JULI CABEZAS MD; QUANG DENISE DO Venous Thromboembolism Antithrombotics Is Pt On Any Antithrombotics?: Yes Exam Sepsis Risk: Possible Sepsis Risk Problem Qualifiers (1) Pulmonary embolism: Pulmonary embolism type: other Chronicity: acute Acute cor pulmonale presence: without acute cor pulmonale Qualified Codes: I26.99 - Other pulmonary embolism without acute cor pulmonale RHONDA JONES MD Oct 31, 2017 23:42
[2017-10-31] MEDS: ENOXAPARIN 100 MG/ML SYR SC SCH (23:59)
[2017-11-01] VITALS (7 sets, daily range): BP systolic 117–150; BP diastolic 61–84; Ht 181.6 cm; Wt 80.1 kg
[2017-11-01 05:31] LABS: PLATELET COUNT, AUTOMATED 282 K/uL (150-450)
[2017-11-01] MEDS: ALBUTEROL/IPRATROPIUM 3 ML NEB NEB SCH ×3 (05:52→17:03)
[2017-11-01] MEDS ORDERED: methylPREDNIS SUCC 125 MG/2ML IVP SCH (07:00)
[2017-11-01] MEDS: DOCUSATE SODIUM 100 MG CAP PO SCH ×2 (08:53→20:42)
[2017-11-01] MEDS: GLIMEPIRIDE 2 MG TAB PO SCH (08:53)
[2017-11-01] MEDS: guaiFENesin 600 MG TABCR PO SCH ×2 (08:55→20:43)
[2017-11-01] MEDS: POLYETHYLENE GLYCOL 17 GM PKT PO SCH (08:55)
[2017-11-01] MEDS: amLODIPine BESYL(*) 5 MG TAB PO SCH (08:55)
[2017-11-01] MEDS: LOSARTAN POTASSIUM 50 MG TAB PO SCH (08:55)
[2017-11-01] MEDS: GABAPENTIN 300 MG CAP PO SCH ×3 (08:55→20:43)
[2017-11-01] MEDS: INSULIN HUM LISPRO 100 UN/ML 3 ML VIAL SUBQ PRN ×4 (08:56→20:45)
[2017-11-01] MEDS: ENOXAPARIN 100 MG/ML SYR SC SCH (12:25)
--- NOTE | 2017-11-01 12:36 | Hospitalist Progress Note ---
Subjective Progress Notes Subjective He denies CP. He reports that his SOB is much improved, but still coughing up a lot. Physical Exam Vital Signs Date Time Temp Pulse Resp B/P (MAP) Pulse Ox O2 Delivery O2 Flow Rate FiO2 11/01/17 11:13 84 16 11/01/17 11:05 91 Room Air 11/01/17 08:50 131/74 (93) 11/01/17 08:12 97.7 2.0 Intake and Output 11/02/17 07:00 Intake Total 200 ml Balance 200 ml Intake Oral 200 ml General Appearance: Alert, Awake, No Acute Distress Respiratory: Clear to Auscultation Result Diagram: 11/01/1751311/01/17513 Assessment and Plan Problems: (1) Pulmonary embolism Status: Acute Assessment & Plan: He appears to be fairly stable from this standpoint. Most likely related to his rather sedentary state following his recent surgery. Will place him oOn Lovenox 80mg SQ q12hrs. He is interested in either Xarelto or Eliquis (rather than warfarin) if he has reasonable insurance coverage. SW is investigating. (2) COPD exacerbation Status: Acute Assessment & Plan: He has a fair amount of bronchospasm currently. Will give him respiratory treatments and supplemental oxygen as needed. Will switch from IV steroids to prednisone. He does not have an infiltrate on CXR or CT scan. He did test positive for the RSV, which is probably contributing to the acute exacerbation. (3) Type 2 diabetes mellitus Status: Chronic Assessment & Plan: On ADA diet, continue his Amaryl and metformin, check glucoses, and use SSI as needed. The steroids will most likely cause some elevation of his glucose levels. (4) Essential hypertension Status: Chronic Assessment & Plan: Monitor BPs and resume his amlodipine and losartan as needed. (5) S/P laminectomy Status: Chronic Assessment & Plan: Will continue his diazepam and Lortab for pain/spasm control. Will have PT see him as well. The patient doesn't want to go back to the [facility], so working on setting him up to go home at discharge. Exam Sepsis Risk: No Definite Risk Problem Qualifiers (1) Pulmonary embolism: Pulmonary embolism type: other Chronicity: acute Acute cor pulmonale presence: without acute cor pulmonale Qualified Codes: I26.99 - Other pulmonary embolism without acute cor pulmonale MARGARITO SUH MD Nov 01, 2017 12:36
[2017-11-01] MEDS: APAP/HYDROCODONE 325/7.5 TAB PO PRN ×2 (13:39→20:43)
[2017-11-01] MEDS: predniSONE 20 MG TAB PO SCH (17:00)
[2017-11-01] MEDS: SALMETEROL/FLUTIC 500/50 1 INH INH SCH (17:03)
[2017-11-01] MEDS ORDERED: NORTRIPTYLINE HCL 10 MG CAP PO SCH (21:00)
[2017-11-01] MEDS ORDERED: RIVAROXABAN 10 MG TAB PO ONE (23:00)
[2017-11-02 03:30] VITALS: BP 125/56
[2017-11-02] MEDS: SALMETEROL/FLUTIC 500/50 1 INH INH SCH (05:48)
[2017-11-02] MEDS: ALBUTEROL/IPRATROPIUM 3 ML NEB NEB SCH ×2 (05:48→11:05)
[2017-11-02 07:51] VITALS: BP 160/79
[2017-11-02] MEDS: predniSONE 20 MG TAB PO SCH (08:02)
[2017-11-02] MEDS: DOCUSATE SODIUM 100 MG CAP PO SCH (08:19)
[2017-11-02] MEDS: LOSARTAN POTASSIUM 50 MG TAB PO SCH (08:19)
[2017-11-02] MEDS: GLIMEPIRIDE 2 MG TAB PO SCH (08:19)
[2017-11-02] MEDS: GABAPENTIN 300 MG CAP PO SCH ×2 (08:19→13:30)
[2017-11-02] MEDS: guaiFENesin 600 MG TABCR PO SCH (08:19)
[2017-11-02] MEDS: amLODIPine BESYL(*) 5 MG TAB PO SCH (08:19)
[2017-11-02] MEDS: POLYETHYLENE GLYCOL 17 GM PKT PO SCH (08:20)
[2017-11-02] MEDS ORDERED: GABA-549 PO (11:06)
[2017-11-02] MEDS ORDERED: GLIM4TAB50 PO (11:06)
[2017-11-02] MEDS ORDERED: NOR10 PO (11:06)
[2017-11-02] MEDS ORDERED: PRED-1 PO (11:06)
[2017-11-02] MEDS ORDERED: ALB18R INH (11:06)
[2017-11-02] MEDS ORDERED: RIVA15TA PO (11:06)
[2017-11-02] MEDS ORDERED: METXR500 PO (11:06)
[2017-11-02] MEDS ORDERED: LOSA-57 PO (11:06)
[2017-11-02] MEDS ORDERED: AMLO-99 PO (11:06)
--- NOTE | 2017-11-02 11:12 | Hospitalist Depart ---
Discharge Summary Reason for Hosp/Final Diag: (1) Pulmonary embolism Status: Acute Hospital Course & Plan: CT scan showed bilateral pulmonary emboli. He will be placed on Xarelto for anticoagulant. We would recommend 3-6 month management with anticoagulant. (2) COPD exacerbation Status: Acute Hospital Course & Plan: He has been treated for exacerbation of COPD. He will be tapered with prednisone. (3) Type 2 diabetes mellitus Status: Chronic Hospital Course & Plan: On ADA diet, continue his Amaryl and metformin, check glucoses. The steroids will most likely cause some elevation of his glucose levels. (4) Essential hypertension Status: Chronic Hospital Course & Plan: Monitor BPs and resume his amlodipine and losartan as needed. (5) S/P laminectomy Status: Chronic Hospital Course & Plan: Patient will follow up with Dr Cabezas as an outpatient. Departure Weight (Pounds): 176 Weight (Ounces): 8.0 Result Diagram: 11/01/1751311/01/17513 Condition: Improved Discharge: Home, Self Care Discharge Instructions Home Meds Active Scripts Prednisone 10 Mg Tab (PREDNISONE 10 MG TAB) 10 Mg Tablet, 10 MG PO DIRECTED, #30 TAB 4 daily for 4 day, 3 daily for 3 days, 2 daily for 2 days, 1 day after Prov:DESIRAE YIN DO 11/02/17 Rivaroxaban 15 Mg (XARELTO 15 MG) 15 Mg Tablet, 15 MG PO BID for 21 Days, #42 TAB Prov:DESIRAE YIN DO 11/02/17 Nortriptyline Hcl (NORTRIPTYLINE HCL) 10 Mg Cap, 10 MG PO HS, #30 CAP 0 Refills Prov:DESIRAE YIN DO 11/02/17 Albuterol Sulfate (VENTOLIN HFA) 18 Gm Inh, 2 PUFF INH Q4-6H Y for SHORTNESS OF BREATH, #1 INH 0 Refills Prov:DESIRAE YIN DO 11/02/17 Losartan/Hydrochlorothiazide (LOSARTAN-HCTZ 100-12.5 MG TAB) 1 Each Tablet, 1 TAB PO QDAY, #30 TAB 0 Refills Prov:DESIRAE YIN DO 11/02/17 Amlodipine Besylate (AMLODIPINE BESYLATE) 10 Mg Tablet, 1 TAB PO QDAY, #30 TAB 0 Refills Prov:DESIRAE YIN DO 11/02/17 Glimepiride (GLIMEPIRIDE) 4 Mg Tablet, 1 TAB PO QDAY, #30 TAB 0 Refills Prov:ANNAMARIADESIRAE ARCINIEGA DO 11/02/17 Gabapentin (GABAPENTIN) 300 Mg Capsule, 1 CAP PO TID, #90 CAPSULE 0 Refills Prov:ANNAMARIADESIRAE ARCINIEGA DO 11/02/17 Metformin Hcl (METFORMIN HCL ER) 500 Mg Tabcr, 2 TAB PO QHS, #60 TAB 0 Refills Prov:DESIRAE YIN DO 11/02/17 Ipratropium/Albuterol Sulfate (IPRAT-ALBUT 0.5-3(2.5) MG/3 ML) 3 Ml Ampul.neb, 3 ML NEB TIDR, #90 INH Prov:DYAN JONES MD 10/26/17 Guaifenesin (MUCINEX) 600 Mg Tablet.er, 600 MG PO BID, #60 TAB Prov:DYAN JONES MD 10/26/17 Fluticasone/Salmeterol (ADVAIR 500-50 DISKUS) 1 Each Disk.w.dev, 1 PUFF IH BID, #3 INHALER 4 Refills Prov:ZAHRA GONZALES MD 03/29/17 True Metrix Glucose Test Strip (True Metrix Glucose Test Strip) 1 Each Strip, 1 STRIP MC DAILY, #400 BOX 4 Refills Use to test blood sugars 4 times daily Prov:ZAHRA GONZALES MD 11/11/16 Blood Sugar Diagnostic (TRUETEST TEST STRIPS) 1 Each Strip, 1 EACH MC QID, #400 STRIP 4 Refills Prov:ZAHRA GONZALES MD 10/08/15 Discontinued Reported Medications Hydrocodone Bit/Acetaminophen (HYDROCODON-ACETAMINOPHEN 5-325) 1 Each Tablet, 1- 2 EACH PO Q4H for PAIN, #30 TAB 10/28/17 Hydrocodone Bit/Acetaminophen (HYDROCODON-ACETAMINOPHEN 5-325) 1 Each Tablet, 1- 2 EACH PO Q4H, TAB 10/28/17 Discontinued Scripts Diazepam (VALIUM) 5 Mg Tablet, 5-10 MG PO Q6H Y for MUSCLE SPASMS, #30 TAB Prov:DYAN JONES MD 10/26/17 Oxycodone Hcl (OXYCODONE HCL) 5 Mg Tablet, 5-10 MG PO Q3H Y for SEVERE PAIN, # 30 TAB Prov:DYAN JONES MD 10/26/17 Insulin Lispro (HUMALOG) 100 Unit/1 Ml Vial, 2-10 UNIT SUBQ SS Y for SLIDING SCALE INSULIN, #1 VIAL Prov:DYAN JONES MD 10/26/17 Sodium Chloride (SALINE NASAL SPRAY) 30 Ml [place], 0 ML NA PRN Y for CONGESTION, #1 BOTTLE Prov:DYAN JONES MD 10/26/17 Polyethylene Glycol 3350 (POLYETHYLENE GLYCOL 3350) 17 Gm Powd.pack, 17 GM PO QDAY, #30 PACKET Prov:DYAN JONES MD 10/26/17 Magnesium Hydroxide (MILK OF MAGNESIA) 400 Mg/5 Ml Oral.susp, 30 ML PO BID Y for CONSTIPATION, #30 UNITS Prov:DYAN JONES MD 10/26/17 Docusate Sodium (DOCUSATE SODIUM) 100 Mg Capsule, 100 MG PO BID, #60 CAPSULE Prov:DYAN JONES MD 10/26/17 Acetaminophen (ACETAMINOPHEN) 500 Mg Tablet, 500 MG PO Q6H Y for MILD PAIN, #30 TAB Prov:DYAN JONES MD 10/26/17 Ipratropium/Albuterol Sulfate (IPRAT-ALBUT 0.5-3(2.5) MG/3 ML) 3 Ml Ampul.neb, 3 ML IH QID Y for bronchitis, #30 VIAL 2 Refills Prov:ZAHRA GONZALES MD 07/22/17 Prednisone (PREDNISONE) 20 Mg Tablet, 2 TAB PO QDAY Y for bronchitis, #60 TAB 2 Refills Prov:ZAHRA GONZALES MD 03/29/17 Diet: Diabetic Activity: As Tolerated Copies to: QUANG DENISE DO Venous Thromboembolism Antithrombotics Is Pt On Any Antithrombotics?: Yes Problem Qualifiers (1) Pulmonary embolism: Pulmonary embolism type: other Chronicity: acute Acute cor pulmonale presence: without acute cor pulmonale Qualified Codes: I26.99 - Other pulmonary embolism without acute cor pulmonale DESIRAE YIN DO Nov 02, 2017 11:12
[2017-11-02] MEDS: APAP/HYDROCODONE 325/7.5 TAB PO PRN (11:47)
[2017-11-02] MEDS: INSULIN HUM LISPRO 100 UN/ML 3 ML VIAL SUBQ PRN (13:27)
[2017-11-02] MEDS ORDERED: metFORMIN HCL XR 500 MG TABCR PO SCH (22:00)
== END 2017-11-02 14:08 | disposition home or self-care (01) | DRG 176 ==
LOC: ER 19:14 → MED 22:24
PROVIDERS: ADMIT Internal Medicine; ATTEND Internal Medicine
DX: I26.99 Other pulmonary embolism without acute cor pulmonale (principal); J44.1 Chronic obstructive pulmonary disease with (acute) exacerbation; J21.0 Acute bronchiolitis due to respiratory syncytial virus; I82.811 Embolism and thrombosis of superficial veins of right lower extremity; E11.9 Type 2 diabetes mellitus without complications; I10 Essential (primary) hypertension; R09.02 Hypoxemia; D72.819 Decreased white blood cell count, unspecified; E78.00 Pure hypercholesterolemia, unspecified; J30.9 Allergic rhinitis, unspecified; Z79.4 Long term (current) use of insulin; Z88.0 Allergy status to penicillin; Z87.891 Personal history of nicotine dependence; Z85.828 Personal history of other malignant neoplasm of skin
CPT/HCPCS: 36415; 36416; 71046; 71275; 81001; 82040; 82247; 82310; 82374; 82435; 82565; 82947; 82948; 83605; 84075; 84132; 84155; 84295; 84450; 84460; 84520; 85025; 85379; 86140; 87040; 87070; 87088; 87205; 87502; 87798; 93005; 94640; 96361; 96374; 96375; 97161; 99285; J1170; J1650; J2930; J7030; J7040; J7512; Q9967

== ENCOUNTER 2017-11-30 09:42 | Emergency (ER) | payer MEDICARE, OTHER ==
[2017-11-01 09:55] VITALS: Wt 80.1 kg
[2017-11-30] MEDS ORDERED: RIVA15TA PO (09:49)
--- NOTE | 2017-11-30 10:01 | ER Report ---
History and Physical Time Seen By MD: 10:00 Hx. of Stated Complaint: black stool after taking anticoagulant HPI/ROS CHIEF COMPLAINT: Dark stool HISTORY OF PRESENT ILLNESS: 82-year-old male had a history of pulmonary emboli status post back surgeries Provenza Roto 20 days ago reduced dose taken off is a relatively noticed some dark stool the last 2-3 days 1st noticed about a week ago no abdominal pain or cramping no additional complaints notice of the stool looked dark and there is some darkened blood in the water no longer on this a Roto REVIEW OF SYSTEMS: Respiratory: No cough, no dyspnea. Cardiovascular: No chest pain, no palpitations. Gastrointestinal: No vomiting, no abdominal pain. Musculoskeletal: No back pain. Remainder of the 14 system rev: Yes Allergies: Coded Allergies: Penicillins (Verified Allergy, Severe, hives, 11/30/17) Home Meds Active Scripts Prednisone 10 Mg Tab (PREDNISONE 10 MG TAB) 10 Mg Tablet, 10 MG PO DIRECTED, #30 TAB 4 daily for 4 day, 3 daily for 3 days, 2 daily for 2 days, 1 day after Prov:DESIRAE YIN DO 11/02/17 Rivaroxaban 15 Mg (XARELTO 15 MG) 15 Mg Tablet, 15 MG PO BID for 21 Days, #42 TAB Prov:DESIRAE YIN DO 11/02/17 Nortriptyline Hcl (NORTRIPTYLINE HCL) 10 Mg Cap, 10 MG PO HS, #30 CAP 0 Refills Prov:DESIRAE YIN DO 11/02/17 Albuterol Sulfate (VENTOLIN HFA) 18 Gm Inh, 2 PUFF INH Q4-6H Y for SHORTNESS OF BREATH, #1 INH 0 Refills Prov:DESIRAE YIN DO 11/02/17 Losartan/Hydrochlorothiazide (LOSARTAN-HCTZ 100-12.5 MG TAB) 1 Each Tablet, 1 TAB PO QDAY, #30 TAB 0 Refills Prov:DESIRAE YIN DO 11/02/17 Amlodipine Besylate (AMLODIPINE BESYLATE) 10 Mg Tablet, 1 TAB PO QDAY, #30 TAB 0 Refills Prov:DESIRAE YIN DO 11/02/17 Glimepiride (GLIMEPIRIDE) 4 Mg Tablet, 1 TAB PO QDAY, #30 TAB 0 Refills Prov:DESIRAE YIN DO 11/02/17 Gabapentin (GABAPENTIN) 300 Mg Capsule, 1 CAP PO TID, #90 CAPSULE 0 Refills Prov:DESIRAE YIN DO 11/02/17 Metformin Hcl (METFORMIN HCL ER) 500 Mg Tabcr, 2 TAB PO QHS, #60 TAB 0 Refills Prov:DESIRAE YIN DO 11/02/17 Ipratropium/Albuterol Sulfate (IPRAT-ALBUT 0.5-3(2.5) MG/3 ML) 3 Ml Ampul.neb, 3 ML NEB TIDR, #90 INH Prov:DYAN JONES MD 10/26/17 Guaifenesin (MUCINEX) 600 Mg Tablet.er, 600 MG PO BID, #60 TAB Prov:DYAN JONES MD 10/26/17 Fluticasone/Salmeterol (ADVAIR 500-50 DISKUS) 1 Each Disk.w.dev, 1 PUFF IH BID, #3 INHALER 4 Refills Prov:ZAHRA GONZALES MD 03/29/17 True Metrix Glucose Test Strip (True Metrix Glucose Test Strip) 1 Each Strip, 1 STRIP MC DAILY, #400 BOX 4 Refills Use to test blood sugars 4 times daily Prov:ZAHRA GONZALES MD 11/11/16 Blood Sugar Diagnostic (TRUETEST TEST STRIPS) 1 Each Strip, 1 EACH MC QID, #400 STRIP 4 Refills Prov:ZAHRA GONZALES MD 10/08/15 Reported Medications Rivaroxaban 15 Mg (XARELTO 15 MG) 15 Mg Tablet, 15 MG PO 1-2XD, TAB 11/30/17 Reviewed Nurses Notes: Yes Old Medical Records Reviewed: Yes Hx Smoking: Yes (Smoked x5-10 years) Smoking Status: Former Smoker Exposure to Second Hand Smoke?: No Hx Substance Use Disorder: No Hx Alcohol Use: Yes Constitutional Vital Sign - Last 24 Hours 11/30/17 11/30/17 11/30/17 11/30/17 09:46 09:50 10:00 10:30 Temp 97.9 Pulse 98 Resp 18 B/P (MAP) 161/105 161/105 (123) 151/83 (105) 173/85 (114) Pulse Ox 96 O2 Delivery Room Air 11/30/17 11/30/17 11/30/17 11/30/17 10:57 11:02 11:25 11:25 Pulse 84 76 72 Resp 20 Pulse Ox 97 96 92 O2 Delivery Room Air 11/30/17 11/30/17 11/30/17 11/30/17 11:30 11:32 11:33 11:47 Pulse 72 78 ??? Resp 20 B/P (MAP) 147/67 (93) Pulse Ox 100 86 11/30/17 12:00 B/P (MAP) 154/84 (107) Physical Exam General Appearance: The patient is alert, has no immediate need for airway protection and no current signs of toxicity. [ ] Eyes: Pupils equal and round no injection. Respiratory: Chest is non tender, lungs are clear to auscultation. Cardiac: regular rate and rhythm [ ] Gastrointestinal: Abdomen is soft and non tender, no masses, bowel sounds normal. Musculoskeletal: Neck: Neck is supple and non tender. Extremities have full range of motion and are non tender. Skin: No rashes or lesions. Rectal examination Hemoccult sent no obvious gross blood DIFFERENTIAL DIAGNOSIS: After history and physical exam differential diagnosis was considered for GI bleed hypercoagulable bili Medical Decision Making Data Points Result Diagram: 11/30/17 1003 11/30/17 1003 Laboratory Hematology Test 11/30/17 09:58 11/30/17 10:03 Stool Occult Blood (IFOB) Positive (NEGATIVE) Red Blood Count 3.42 M/uL (4.00-5.60) Mean Corpuscular Volume 84.1 fL (80.0-96.0) Mean Corpuscular Hemoglobin 27.9 pg (26.0-33.0) Mean Corpuscular Hemoglobin Concent 33.2 g/dL (32.0-36.0) Red Cell Distribution Width 15.0 % (11.5-14.5) Mean Platelet Volume 7.5 fL (7.2-11.1) Neutrophils (%) (Auto) 61.8 % (39.4-72.5) Lymphocytes (%) (Auto) 28.2 % (17.6-49.6) Monocytes (%) (Auto) 7.5 % (4.1-12.4) Eosinophils (%) (Auto) 2.0 % (0.4-6.7) Basophils (%) (Auto) 0.5 % (0.3-1.4) Nucleated RBC Relative Count (auto) 0.0 /100WBC Neutrophils # (Auto) 5.3 K/uL (2.0-7.4) Lymphocytes # (Auto) 2.4 K/uL (1.3-3.6) Monocytes # (Auto) 0.6 K/uL (0.3-1.0) Eosinophils # (Auto) 0.2 K/uL (0.0-0.5) Basophils # (Auto) 0.0 K/uL (0.0-0.1) Nucleated RBC Absolute Count (auto) 0.00 K/uL Prothrombin Time 14.0 seconds (12.0-14.4) Prothromb Time International Ratio 1.08 Activated Partial Thromboplast Time 25 seconds (23-35) Sodium Level 142 mmol/L (137-145) Potassium Level 3.2 mmol/L (3.5-5.0) Chloride Level 105 mmol/L (98-107) Carbon Dioxide Level 23 mmol/L (22-30) Blood Urea Nitrogen 30 mg/dl (9-21) Creatinine 1.10 mg/dl (0.66-1.25) Glomerular Filtration Rate Calc > 60.0 Random Glucose 63 mg/dl (75-110) Calcium Level 9.2 mg/dl (8.4-10.2) Total Bilirubin 0.4 mg/dl (0.2-1.3) Aspartate Amino Transf (AST/SGOT) 22 U/L (0-35) Alanine Aminotransferase (ALT/SGPT) 33 U/L (0-56) Alkaline Phosphatase 59 U/L (0-126) Total Protein 6.3 gm/dl (6.3-8.2) Albumin 3.7 g/dl (3.5-5.0) Chemistry Test 11/30/17 09:58 11/30/17 10:03 Stool Occult Blood (IFOB) Positive (NEGATIVE) White Blood Count 8.6 k/uL (4.5-11.0) Red Blood Count 3.42 M/uL (4.00-5.60) Hemoglobin 9.5 g/dL (14.0-18.0) Hematocrit 28.7 % (42.0-52.0) Mean Corpuscular Volume 84.1 fL (80.0-96.0) Mean Corpuscular Hemoglobin 27.9 pg (26.0-33.0) Mean Corpuscular Hemoglobin Concent 33.2 g/dL (32.0-36.0) Red Cell Distribution Width 15.0 % (11.5-14.5) Platelet Count 368 K/uL (150-450) Mean Platelet Volume 7.5 fL (7.2-11.1) Neutrophils (%) (Auto) 61.8 % (39.4-72.5) Lymphocytes (%) (Auto) 28.2 % (17.6-49.6) Monocytes (%) (Auto) 7.5 % (4.1-12.4) Eosinophils (%) (Auto) 2.0 % (0.4-6.7) Basophils (%) (Auto) 0.5 % (0.3-1.4) Nucleated RBC Relative Count (auto) 0.0 /100WBC Neutrophils # (Auto) 5.3 K/uL (2.0-7.4) Lymphocytes # (Auto) 2.4 K/uL (1.3-3.6) Monocytes # (Auto) 0.6 K/uL (0.3-1.0) Eosinophils # (Auto) 0.2 K/uL (0.0-0.5) Basophils # (Auto) 0.0 K/uL (0.0-0.1) Nucleated RBC Absolute Count (auto) 0.00 K/uL Prothrombin Time 14.0 seconds (12.0-14.4) Prothromb Time International Ratio 1.08 Activated Partial Thromboplast Time 25 seconds (23-35) Glomerular Filtration Rate Calc > 60.0 Calcium Level 9.2 mg/dl (8.4-10.2) Total Bilirubin 0.4 mg/dl (0.2-1.3) Aspartate Amino Transf (AST/SGOT) 22 U/L (0-35) Alanine Aminotransferase (ALT/SGPT) 33 U/L (0-56) Alkaline Phosphatase 59 U/L (0-126) Total Protein 6.3 gm/dl (6.3-8.2) Albumin 3.7 g/dl (3.5-5.0) Coagulation Test 11/30/17 10:03 Prothrombin Time 14.0 seconds Prothromb Time International Ratio 1.08 Activated Partial Thromboplast Time 25 seconds ED Course/Re-evaluation ED Course ED clinical course 82-year-old male hemoglobin dropping almost 3 points in 30 days [place] relative for prior pulmonary emboli repeat CT angiography shows a resolution of the prior emboli however 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 86 11/30/17 11:33 20 11/30/17 11:25 Room Air 11/30/17 09:46 97.9 Impression: Primary Impression: GI bleed Condition: Improved Disposition: XFER TO ACUTE [facility]ARE [facility]OS[facility] Referrals: QUANG DENISE DO (PCP) HOLLI AGUILAR MD Nov 30, 2017 10:01
[2017-11-30 10:20] LABS: PLATELET COUNT, AUTOMATED 368 K/uL (150-450)
[2017-11-30 10:30] LABS: INR 1.08
[2017-11-30] MEDS ORDERED: IOPAMIDOL 76% 75 ML INFUS BTL 75 ML ONE (10:33)
[2017-11-30] MEDS ORDERED: NS 0.9% 150 ML BAG 150 ML ONE (10:33)
[2017-11-30] MEDS ORDERED: ALBUTEROL 2.5 MG/3 ML NEB NEB ONE (11:20)
--- NOTE | 2017-11-30 11:34 | RADIOLOGY IMAGING REPORT ---
[place] [facility] [place] Ever Teixeira : 1935 MR: [id number] V: [id number] EXAM DATE: ORDERING PHYSICIAN: HOLLI AGUILAR TECHNOLOGIST: Location: [facility] [place] Patient: Ever Teixeira : 1935 Visit/Account:[id number] Date of Sevice: 11/30/2017 CTA CHEST WW/O CNTR (PULM ANG) Provided history: pe Additional pertinent history: none TECHNIQUE: Pulmonary embolus protocol - Thin-slice axial imaging of the chest was performed during maximal pulmo nary arterial opacification with intravenous nonionic iodinated contrast. 3D coronal slab MIPs and 2D reconstructions in the coronal and sagittal planes were performed to aid in pulmonary embolus detect ion. [employer] images have been stored on PACS. EKG gating: no Contrast: 75 ml Isovue 370 One of the following dose optimization techniques was utilized in the performance of this exam: Autom ated exposure control; adjustment of the mA and/or kV according to the patient's size; or use of an i terative reconstruction technique. Specific details can be referenced in the facility's radiology C T exam operational policy. COMPARISON STUDIES: 10-31-17 FINDINGS: Angiographic Findings: Pulmonary arteries: Segmental and more distal filling defects on previous study involving the left an d right lung have recanalized in the interim. There is no evidence of interim embolic disease. The main, right (ribs remain of normal caliber. Thoracic aorta: negative. Additional non-angiographic findings: Lungs / pleura / delonte: A wedge-shaped area of groundglass attenuation in the posterior lateral corn er of the right upper lobe on prior study has contracted now against the pleura, very likely benign. I do not see evidence of embolism on the prior study to this segment of lung. Reidentified is prominent peribronchial thickening of both lower lobes and to lesser degree the upper lobes, similar to prior exam. There is indistinct nodularity in the right lower lobe that I suspect is inflammatory in origin. Largest definable nodule currently is 4 x 6 mm, unchanged remeasurement of prior.. There is no new acute infiltrate or effusion on today's exam. Lower neck: Reidentified is a descending goiter rise from the left lobe of the thyroid, unchanged. Mediastinum: Per above Heart / pericardium: negative Other Vessels: Moderate LAD calcification. Body wall: negative Upper abdomen: Partial inclusion of a cyst from the upper pole right kidney. Adrenal glands negativ e. Multifocal calcifications of the pancreas from old inflammatory disease. Lymph nodes: Mildly prominent bilateral hilar lymph nodes and prior study show partial resolution, v roxann likely benign. Bones: negative IMPRESSION: 1. Interim recanalization of emboli described on previous study 10/31/17. No evidence of interim em bolism. 2. Wedge-shaped area of groundglass attenuation in the posterior lateral corner of the right upper l obe has decreased in size. This pattern of a shrinking peripheral wedge-shaped density in the settin g of previous embolism suggests probable resolving pulmonary infarction. 3. Prominent peribronchial thickening of the lower lobes. Nodular pattern in the right lower lobe I suspect is benign and inflammatory in origin. I would however suggest a follow-up examination using low dose CT technique in 6 months. Report Dictated By: Klever Juares MD at 11/30/2017 11:09 AM Report E-Signed By: Klever Juares MD at 11/30/2017 11:29 AM WSN:[id number]
[2017-11-30 13:30] VITALS: BP 168/83
== END 2017-11-30 13:45 | disposition short-term general hospital (02) ==
LOC: ER 09:50
DX: K92.2 Gastrointestinal hemorrhage, unspecified (principal); R91.8 Other nonspecific abnormal finding of lung field; Z86.711 Personal history of pulmonary embolism; Z79.01 Long term (current) use of anticoagulants; Z87.891 Personal history of nicotine dependence
CPT/HCPCS: 36416; 71275; 82274; 82948; 85025; 85610; 85730; 94640; 99285; J7613; Q9967; 82040; 82247; 82310; 82374; 82435; 82565; 82947; 84075; 84132; 84155; 84295; 84450; 84460; 84520

== ENCOUNTER → 2017-11-30 | Outpatient (CLI) | payer MEDICARE, OTHER ==
[2017-11-01 09:55] VITALS: BMI 24.2
[~2017-11-30] MED LIST changes: +PRED-1 PO; +RIVA15TA PO
== END ==
LOC: AMB 13:34
PROVIDERS: ATTEND Nurse Practitioner
DX: I82.403 Acute embolism and thrombosis of unspecified deep veins of lower extremity, bilateral (principal)
CPT/HCPCS: A0425; A0428

== ENCOUNTER → 2018-01-31 | Outpatient (CLI) | payer MEDICARE, OTHER ==
[2017-11-01 09:55] VITALS: BMI 24.2
[~2018-01-31] MED LIST changes: +IRON18TA2 PO; -METF-420 PO; +METF-421 PO
[2018-01-31 14:13] LABS: PLATELET COUNT, AUTOMATED 352 K/uL (150-450)
== END ==
LOC: LAB 13:52
PROVIDERS: ATTEND Surgery
DX: D64.9 Anemia, unspecified (principal); R53.1 Weakness; E11.9 Type 2 diabetes mellitus without complications
CPT/HCPCS: 36415; 82040; 82247; 82248; 82310; 82374; 82435; 82565; 82728; 82947; 83540; 83550; 84075; 84132; 84134; 84155; 84295; 84450; 84460; 84466; 84520; 85025

== ENCOUNTER → 2018-02-01 | Outpatient (CLI) | payer MEDICARE, OTHER ==
[2017-11-01 09:55] VITALS: BMI 24.2
--- NOTE | 2018-02-01 11:13 | RADIOLOGY IMAGING REPORT ---
FACILITY: [facility] - [place] PATIENT NAME: Ever Teixeira : 1935 MR: [id number] V: [id number] EXAM DATE: ORDERING PHYSICIAN: DESIRAE JOHNSON TECHNOLOGIST: Location: [facility] Patient: Ever Teixeira : 1935 Visit/Account:[id number] Date of Sevice: 02/01/2018 Chest with lateral, two views. HISTORY: Shortness of breath, COPD. COMPARISON: 10/31/2017. The aortic knob is calcified. A minimal streaky density is present in the lateral aspect of the righ t lower lung. The heart and mediastinum are otherwise unremarkable. Pulmonary vessels are unremarka ble. The lungs are voluminous. The pleural surfaces are unremarkable. No pneumothorax. Degenerative changes are present in the spine and shoulders. IMPRESSION: COPD. Aortic atherosclerosis. Minimal right lower lung subsegmental atelectasis or pleural parenchymal scar. Report Dictated By: Daniel Chambers MD at 02/01/2018 11:07 AM Report E-Signed By: Daniel Chambers MD at 02/01/2018 11:09 AM [id number]
== END ==
LOC: RAD 09:56
PROVIDERS: ATTEND Surgery
DX: R35.8 Other polyuria (principal); J44.9 Chronic obstructive pulmonary disease, unspecified
CPT/HCPCS: 71046; 81001; 87088

== ENCOUNTER → 2018-02-10 | Outpatient (REF) | payer MEDICARE, OTHER ==
[2017-11-01 09:55] VITALS: BMI 24.2
[2018-02-10 13:42] LABS: PLATELET COUNT, AUTOMATED 338 K/uL (150-450)
== END ==
LOC: ZZSENDIN 13:29
PROVIDERS: ATTEND Family Medicine
DX: D72.829 Elevated white blood cell count, unspecified (principal)
CPT/HCPCS: 85007; 85027

== ENCOUNTER 2018-03-27 14:15 | Inpatient (IN) | payer MEDICARE, OTHER ==
[~2018-03-27] VITALS: Ht 180.3 cm; Wt 91.6 kg
[2018-03-27] VITALS (19 sets, daily range): BP systolic 84–115; BP diastolic 45–59
[~2018-03-27 14:15] MED LIST changes: +IPRA3AMP10 IH; +IPRA3AMP10 NEB; -IPRA3AMP21 IH; -IPRA3AMP21 NEB; +RANI-318 PO
--- NOTE | 2018-03-27 14:20 | ER Report ---
History and Physical Time Seen By MD: 14:20 Hx. of Stated Complaint: HypOTENSION HPI/ROS Received a call from Dr. Helton surgeon states patient had a laminectomy in September 2017 this was done by Dr. Cabezas had subsequent PE after this laminectomy was placed on blood thinners on started passing blood per rectum had a colonoscopy done at [facility] this colonoscopy showed 2 large polyps that they have been working with him to get his health better to be able to do a colectomy have been unable to do that during his visit in the office today pressure was 80 over nothing today. Was very pale and complaining of chest pain upper abdominal pain for 1-1/2 weeks was taken off his blood thinner approximate [address] Helton Remainder of the 14 system rev: Yes Allergies: Coded Allergies: Penicillins (Verified Allergy, Severe, hives, 11/30/17) Home Meds Active Scripts Ranitidine Hcl (RANITIDINE HCL) 150 Mg Tablet, 1 TAB PO BID, #60 TAB 0 Refills Prov:DESIRAE JOHNSON MD 03/06/18 Nortriptyline Hcl (NORTRIPTYLINE HCL) 10 Mg Cap, 10 MG PO HS, #30 CAP 0 Refills Prov:DESIRAE YIN DO 11/02/17 Albuterol Sulfate (VENTOLIN HFA) 18 Gm Inh, 2 PUFF INH Q4-6H Y for SHORTNESS OF BREATH, #1 INH 0 Refills Prov:DESIRAE YIN DO 11/02/17 Losartan/Hydrochlorothiazide (LOSARTAN-HCTZ 100-12.5 MG TAB) 1 Each Tablet, 1 TAB PO QDAY, #30 TAB 0 Refills Prov:DESIRAE YIN DO 11/02/17 Amlodipine Besylate (AMLODIPINE BESYLATE) 10 Mg Tablet, 1 TAB PO QDAY, #30 TAB 0 Refills Prov:DESIRAE YIN DO 11/02/17 Glimepiride (GLIMEPIRIDE) 4 Mg Tablet, 1 TAB PO QDAY, #30 TAB 0 Refills Prov:DESIRAE YIN DO 11/02/17 Gabapentin (GABAPENTIN) 300 Mg Capsule, 1 CAP PO TID, #90 CAPSULE 0 Refills Prov:DESIRAE YIN DO 11/02/17 Metformin Hcl (METFORMIN HCL ER) 500 Mg Tabcr, 2 TAB PO QHS, #60 TAB 0 Refills Prov:DESIRAE YIN DO 11/02/17 Ipratropium/Albuterol Sulfate (IPRAT-ALBUT 0.5-3(2.5) MG/3 ML) 3 Ml Ampul.neb, 3 ML NEB TIDR, #90 INH Prov:DYAN JONES MD 10/26/17 Guaifenesin (MUCINEX) 600 Mg Tablet.er, 600 MG PO BID, #60 TAB Prov:DYAN JONES MD 10/26/17 Fluticasone/Salmeterol (ADVAIR 500-50 DISKUS) 1 Each Disk.w.dev, 1 PUFF IH BID, #3 INHALER 4 Refills Prov:ZAHRA GONZALES MD 03/29/17 True Metrix Glucose Test Strip (True Metrix Glucose Test Strip) 1 Each Strip, 1 STRIP MC DAILY, #400 BOX 4 Refills Use to test blood sugars 4 times daily Prov:ZAHRA GONZALES MD 11/11/16 Blood Sugar Diagnostic (TRUETEST TEST STRIPS) 1 Each Strip, 1 EACH MC QID, #400 STRIP 4 Refills Prov:ZAHRA GONZALES MD 10/08/15 Reported Medications Iron (IRON) Unknown Strength Tablet, PO QDAY 01/31/18 Past Medical/Surgical History Vertigo, hyperlipidemia, hypertension, COPD, PE to , pneumonia, laminectomy September 2017, diabetes, Reviewed Nurses Notes: Yes Old Medical Records Reviewed: Yes Hx Smoking: Yes (Smoked x5-10 years) Smoking Status: Former Smoker Exposure to Second Hand Smoke?: No Hx Substance Use Disorder: No Hx Alcohol Use: Yes Family History of: Other Constitutional Vital Sign - Last 24 Hours 03/27/18 03/27/18 03/27/18 03/27/18 14:22 14:23 14:30 14:40 Temp 97.4 Pulse 93 Resp 15 B/P (MAP) 114/50 (71) 114/50 110/43 (65) 101/41 (61) Pulse Ox 95 O2 Delivery Room Air 03/27/18 03/27/18 03/27/18 03/27/18 14:45 14:50 15:00 15:10 Pulse 91 Resp 20 B/P (MAP) 106/52 (70) 96/44 (61) 96/43 (60) Pulse Ox 95 03/27/18 03/27/18 03/27/18/16/18 15:15 15:20 15:30 15:40 Pulse 93 Resp 22 B/P (MAP) 97/40 (59) 97/40 (59) 99/30 (53) Pulse Ox 94 03/27/18 03/27/18 03/27/18 03/27/18 15:45 16:00 16:10 16:10 Pulse 91 91 Resp 16 15 B/P (MAP) 95/47 (63) 96/51 (66) 96/51 (66) Pulse Ox 93 96 03/27/18 03/27/18 03/27/18 03/27/18 16:18 16:20 16:30 16:40 Pulse 93 Resp 12 B/P (MAP) 84/37 (53) 101/53 (69) 104/47 (66) 99/49 (66) Pulse Ox 96 03/27/18 03/27/18 03/27/18 03/27/18 16:42 16:50 16:55 16:58 Pulse 93 Resp 9 B/P (MAP) 95/48 (64) 100/47 (64) 97/47 (64) Pulse Ox 95 03/27/18 03/27/18 03/27/18 03/27/18 17:00 17:00 17:11 17:20 B/P (MAP) 99/45 (63) 97/48 (64) 98/55 (69) O2 Flow Rate 10.0 03/27/18 03/27/18 03/27/18 17:25 17:30 17:40 Pulse 86 Resp 10 B/P (MAP) 102/53 (69) 100/52 (68) Pulse Ox 97 Intake and Output 03/27/18 03/27/18 03/28/18 15:00 23:00 07:00 Intake Total 1000 ml Output Total 250 ml Balance 750 ml Physical Exam 83 year old male anxious pale, head normocephalic atraumatic, tm non reddened, throat non reddened, hrr, lungs cta, pain mid epigastric radiates to back, , bs hyperactive liver edge down 4, garcia pulses 2 plus Medical Decision Making Data Points Result Diagram: 03/27/18 1908 03/27/18 1430 Laboratory Hematology Test 03/27/18 14:28 7/16/18 14:30 03/27/18 16:42 03/27/18 17:09 Prothrombin Time 18.4 seconds (12.0-14.4) Prothromb Time International Ratio 1.51 Activated Partial Thromboplast Time 25 seconds (23-35) D-Dimer Quantitative (PE/DVT) 3.54 ug/ml (0-0.50) Red Blood Count 3.21 M/uL (4.00-5.60) Mean Corpuscular Volume 73.0 fL (80.0-96.0) Mean Corpuscular Hemoglobin 20.9 pg (26.0-33.0) Mean Corpuscular Hemoglobin Concent 28.6 g/dL (32.0-36.0) Red Cell Distribution Width 25.0 % (11.5-14.5) Mean Platelet Volume 8.9 fL (7.2-11.1) Neutrophils (%) (Auto) % (39.4-72.5) Lymphocytes (%) (Auto) % (17.6-49.6) Monocytes (%) (Auto) % (4.1-12.4) Eosinophils (%) (Auto) % (0.4-6.7) Basophils (%) (Auto) % (0.3-1.4) Nucleated RBC Relative Count (auto) /100WBC Neutrophils # (Auto) K/uL (2.0-7.4) Lymphocytes # (Auto) K/uL (1.3-3.6) Monocytes # (Auto) K/uL (0.3-1.0) Eosinophils # (Auto) K/uL (0.0-0.5) Basophils # (Auto) K/uL (0.0-0.1) Nucleated RBC Absolute Count (auto) K/uL Neutrophils % (Manual) 86 % (39.4-72.5) Band Neutrophils % 3 % Lymphocytes % (Manual) 5 % (17.6-49.6) Monocytes % (Manual) 6 % (4.1-12.4) Eosinophils % (Manual) 0 % (0.4-6.7) Basophils % (Manual) 0 % (0.3-1.4) Hypochromasia 2 Anisocytosis 2+ Microcytosis 1+ Peripheral Blood Smear Yes Y/N Sodium Level 137 mmol/L (137-145) Potassium Level 4.8 mmol/L (3.5-5.0) Chloride Level 103 mmol/L (98-107) Carbon Dioxide Level 11 mmol/L (22-30) Blood Urea Nitrogen 66 mg/dl (9-21) Creatinine 2.20 mg/dl (0.66-1.25) Glomerular Filtration Rate Calc 28.8 Random Glucose 179 mg/dl (75-110) Calcium Level 9.0 mg/dl (8.4-10.2) Total Bilirubin 6.2 mg/dl (0.2-1.3) Aspartate Amino Transf (AST/SGOT) 345 U/L (0-35) Alanine Aminotransferase (ALT/SGPT) 235 U/L (0-56) Alkaline Phosphatase 389 U/L (0-126) Troponin I < 0.012 ng/ml B-Type Natriuretic Peptide 120 pg/ml (0-100) Total Protein 4.8 g/dl (6.3-8.2) Albumin 2.5 g/dl (3.5-5.0) Amylase Level 55 U/L (0-110) Lipase 54 U/L (23-300) Urine Color Selena Urine Clarity Slightly-cloudy Urine pH 5.0 pH (4.8-9.5) Urine Specific Alpine 1.011 Urine Protein Negative mg/dL (NEGATIVE) Urine Glucose (UA) Negative mg/dL (NEGATIVE) Urine Ketones Negative mg/dL (NEGATIVE) Urine Blood Negative (NEGATIVE) Urine Nitrite Negative (NEGATIVE) Urine Bilirubin Negative (NEGATIVE) Urine Urobilinogen Negative mg/dL (0.2-1.9) Urine Leukocyte Esterase Negative (NEGATIVE) Urine RBC 1 /HPF (0-2/HPF) Urine WBC 2 /HPF (0-5/HPF) Urine Squamous Epithelial Cells Few /LPF (NONE-FEW) Urine Amorphous Crystals Few /HPF Urine Bacteria Few /HPF (NONE-FEW) Urine Mucus None /HPF (NONE-FEW) Venous Blood pH 7.25 (7.31-7.41) Chemistry Test 03/27/18 14:28 03/27/18 14:30 03/27/18 16:42 03/27/18 17:09 Prothrombin Time 18.4 seconds (12.0-14.4) Prothromb Time International Ratio 1.51 Activated Partial Thromboplast Time 25 seconds (23-35) D-Dimer Quantitative (PE/DVT) 3.54 ug/ml (0-0.50) White Blood Count 22.6 k/uL (4.5-11.0) Red Blood Count 3.21 M/uL (4.00-5.60) Mean Corpuscular Volume 73.0 fL (80.0-96.0) Mean Corpuscular Hemoglobin 20.9 pg (26.0-33.0) Mean Corpuscular Hemoglobin Concent 28.6 g/dL (32.0-36.0) Red Cell Distribution Width 25.0 % (11.5-14.5) Platelet Count 212 K/uL (150-450) Mean Platelet Volume 8.9 fL (7.2-11.1) Neutrophils (%) (Auto) % (39.4-72.5) Lymphocytes (%) (Auto) % (17.6-49.6) Monocytes (%) (Auto) % (4.1-12.4) Eosinophils (%) (Auto) % (0.4-6.7) Basophils (%) (Auto) % (0.3-1.4) Nucleated RBC Relative Count (auto) /100WBC Neutrophils # (Auto) K/uL (2.0-7.4) Lymphocytes # (Auto) K/uL (1.3-3.6) Monocytes # (Auto) K/uL (0.3-1.0) Eosinophils # (Auto) K/uL (0.0-0.5) Basophils # (Auto) K/uL (0.0-0.1) Nucleated RBC Absolute Count (auto) K/uL Neutrophils % (Manual) 86 % (39.4-72.5) Band Neutrophils % 3 % Lymphocytes % (Manual) 5 % (17.6-49.6) Monocytes % (Manual) 6 % (4.1-12.4) Eosinophils % (Manual) 0 % (0.4-6.7) Basophils % (Manual) 0 % (0.3-1.4) Hypochromasia 2 Anisocytosis 2+ Microcytosis 1+ Peripheral Blood Smear Yes Y/N Glomerular Filtration Rate Calc 28.8 Calcium Level 9.0 mg/dl (8.4-10.2) Total Bilirubin 6.2 mg/dl (0.2-1.3) Aspartate Amino Transf (AST/SGOT) 345 U/L (0-35) Alanine Aminotransferase (ALT/SGPT) 235 U/L (0-56) Alkaline Phosphatase 389 U/L (0-126) Troponin I < 0.012 ng/ml B-Type Natriuretic Peptide 120 pg/ml (0-100) Total Protein 4.8 g/dl (6.3-8.2) Albumin 2.5 g/dl (3.5-5.0) Amylase Level 55 U/L (0-110) Lipase 54 U/L (23-300) Urine Color Selena Urine Clarity Slightly-cloudy Urine pH 5.0 pH (4.8-9.5) Urine Specific Alpine 1.011 Urine Protein Negative mg/dL (NEGATIVE) Urine Glucose (UA) Negative mg/dL (NEGATIVE) Urine Ketones Negative mg/dL (NEGATIVE) Urine Blood Negative (NEGATIVE) Urine Nitrite Negative (NEGATIVE) Urine Bilirubin Negative (NEGATIVE) Urine Urobilinogen Negative mg/dL (0.2-1.9) Urine Leukocyte Esterase Negative (NEGATIVE) Urine RBC 1 /HPF (0-2/HPF) Urine WBC 2 /HPF (0-5/HPF) Urine Squamous Epithelial Cells Few /LPF (NONE-FEW) Urine Amorphous Crystals Few /HPF Urine Bacteria Few /HPF (NONE-FEW) Urine Mucus None /HPF (NONE-FEW) Venous Blood pH 7.25 (7.31-7.41) Coagulation Test 03/27/18 14:28 Prothrombin Time 18.4 seconds Prothromb Time International Ratio 1.51 Activated Partial Thromboplast Time 25 seconds D-Dimer Quantitative (PE/DVT) 3.54 ug/ml Urinalysis Test 03/27/18 16:42 Urine Color Selena Urine Clarity Slightly-cloudy Urine pH 5.0 pH (4.8-9.5) Urine Specific Alpine 1.011 Urine Protein Negative mg/dL (NEGATIVE) Urine Glucose (UA) Negative mg/dL (NEGATIVE) Urine Ketones Negative mg/dL (NEGATIVE) Urine Blood Negative (NEGATIVE) Urine Nitrite Negative (NEGATIVE) Urine Bilirubin Negative (NEGATIVE) Urine Urobilinogen Negative mg/dL (0.2-1.9) Urine Leukocyte Esterase Negative (NEGATIVE) Urine RBC 1 /HPF (0-2/HPF) Urine WBC 2 /HPF (0-5/HPF) Urine Squamous Epithelial Cells Few /LPF (NONE-FEW) Urine Amorphous Crystals Few /HPF Urine Bacteria Few /HPF (NONE-FEW) Urine Mucus None /HPF (NONE-FEW) EKG/Imaging EKG Interpretation EKG at 1429 normal sinus rhythm ventricular rate 89 QTCs 469 Monitor Interpretation: Normal Sinus Rhythm Imaging FACILITY: [facility] PATIENT NAME: Ever Teixeira : 1935 MR: [id number] V: [id number] EXAM DATE: ORDERING PHYSICIAN: ANYA PERAZA TECHNOLOGIST: Location: [facility] Patient: Ever Teixeira : 1935 Visit/Account:[id number] Date of Sevice: 03/27/2018 CHEST SINGLE AP Indication: Chest pain Comparison: 02/01/2018 Findings: Linear platelike atelectasis and/or scarring is seen in the right lung base. There is minimal left base atelectasis. No confluent infiltrate. No pneumothorax or pleural effusion. Heart size is normal. Thoracic aorta is atherosclerotic. IMPRESSION: 1. No acute cardiopulmonary process. 2. Linear bibasilar atelectasis/scarring. Report Dictated By: Moncho Miller at 03/27/2018 3:16 PM Report E-Signed By: Moncho Miller at 03/27/2018 3:18 PM WSN:[email or web address] ED Course/Re-evaluation Clinical Indication for ER IV: Hydration ED Course Patient laminectomy and Dr. Cabezas had a PE October 2017 with room per [facility] had a subsequent GI bleed productive was stopped 2 weeks ago had a colonoscopy be done 3 weeks ago at [facility] according to Dr. Helton's history and they found polyps at that time they've been trying to get him ready for a colectomy after this tonight he has white blood cell count of 22.6 H&H of 6.7 and 23.5 with platelets of 212 his lactate initially is 12.5 liver enzymes are elevated his CO2 is 11 d-dimer is 3.54 urine is negative for infection chest x-ray is negative for infection troponin was negative creatinine 2.2 discuss this patient with hospitalist he agrees to admit this patient to the ICU note that we do not have a source for his infection does have a temperature of 97.4 on arrival Re-evaluation Given 2 units of blood and 2 units of fresh frozen plasma in the emergency room if 2nd hemoglobin was 8.4 following blood infusion did start him on some empiric antibiotics with hospitalist direction with vancomycin and meropenem given IV piggyback and was seen by the hospitalist in the emergency room for further orders Decision to Disposition Date: Mar 27, 2018 Decision to Disposition Time: 15:28 Turned Over Discussed this patient with the hospitalist he agrees to admit to ICU seing patient in the ER to write orders Depart Departure Latest Vital Signs Vital Signs Date Time Temp Pulse Resp B/P (MAP) Pulse Ox O2 Delivery O2 Flow Rate FiO2 03/27/18 17:40 100/52 (68) 03/27/18 17:25 86 10 97 03/27/18 17:00 10.0 03/27/18 14:23 97.4 Room Air Impression: 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
[2018-03-27] MEDS ORDERED: NS(*) 0.9% 1000 ML BAG 1,000 ML IV ONE ×2 (14:23→17:30)
[2018-03-27 14:48] LABS: INR 1.51
[2018-03-27 15:01] LABS: PLATELET COUNT, AUTOMATED 212 K/uL (150-450)
[2018-03-27] MEDS ORDERED: fentaNYL CITR 100 MCG/2 ML AMP IVP ONE (15:05)
--- NOTE | 2018-03-27 15:08 | EKG ---
FACILITY: [facility] PATIENT NAME: YUDITH HENDERSON : [id number] MR: [id number] V: [id number] EXAM DATE: ORDERING PHYSICIAN: ANYA PERAZA TECHNOLOGIST: KIA Chatman Reason : CP Blood Pressure : / mmHG Vent. Rate : 089 BPM Atrial Rate : 089 BPM P-R Int : 152 ms QRS Dur : 094 ms QT Int : 386 ms P-R-T Axes : 071 052 049 degrees QTc Int : 469 ms Normal sinus rhythm Normal ECG When compared with ECG of 31-OCT-2017 19:17, Previous ECG has undetermined rhythm, needs review T wave amplitude has decreased in Lateral leads Referred By: STU Confirmed By:
--- NOTE | 2018-03-27 15:21 | RADIOLOGY IMAGING REPORT ---
FACILITY: [facility] PATIENT NAME: Ever Teixeira : 1935 MR: [id number] V: [id number] EXAM DATE: ORDERING PHYSICIAN: ANYA PERAZA TECHNOLOGIST: Location: [facility] Patient: Ever Teixeira : 1935 Visit/Account:[id number] Date of Sevice: 03/27/2018 CHEST SINGLE AP Indication: Chest pain Comparison: 02/01/2018 Findings: Linear platelike atelectasis and/or scarring is seen in the right lung base. There is minimal left b ase atelectasis. No confluent infiltrate. No pneumothorax or pleural effusion. Heart size is normal. Thoracic aorta is atherosclerotic. IMPRESSION: 1. No acute cardiopulmonary process. 2. Linear bibasilar atelectasis/scarring. Report Dictated By: Moncho Miller at 03/27/2018 3:16 PM Report E-Signed By: Moncho Miller at 03/27/2018 3:18 PM WSN:[email or web address]
--- NOTE | 2018-03-27 16:45 | RADIOLOGY IMAGING REPORT ---
FACILITY: [facility] [place] PATIENT NAME: Ever Teixeira : 1935 MR: [id number] V: [id number] EXAM DATE: ORDERING PHYSICIAN: ANYA PERAZA TECHNOLOGIST: Location: [facility] [place] Patient: Ever Teixeira : 1935 Visit/Account:[id number] Date of Sevice: 03/27/2018 EXAMINATION: CT abdomen and pelvis without IV contrast HISTORY: Abdominal pain. Elevated lactate. TECHNIQUE: Axial CT images of the abdomen and pelvis were obtained without IV contrast, with landaverde l and sagittal 2D reconstructed images. One of the following dose optimization techniques was utilized in the performance of this exam: Autom ated exposure control; adjustment of the mA and/or kV according to the patient's size; or use of an i terative reconstruction technique. Specific details can be referenced in the facility's radiology C T exam operational policy. COMPARISON: CT chest 11/30/2017. FINDINGS: Evaluation of the solid and viscus parenchymal organs is limited without the benefit of IV contrast. Liver: The liver is enlarged, measuring 24 cm in length. There are numerous poorly defined hypodense masses present throughout the liver, suspicious for metastatic disease. These are suboptimally visua lized on this noncontrast exam but with largest lesions measuring up to 2.5 cm. The majority of the l iver was included on the prior chest CT of 11/30/2017, and these lesions appear to be new since that t disha. Gallbladder and bile ducts: Negative. Spleen: Negative. Pancreas: There are scattered parenchymal calcifications throughout the pancreas, compatible with ch ronic calcific pancreatitis. No evidence of any focal pancreatic mass by noncontrast CT imaging. No p arenchymal atrophy. Adrenal glands: Negative. Kidneys: Normal size and morphology of both kidneys. No urinary calculi or hydronephrosis. 4.[address] along the upper right kidney. Bowel and peritoneum: The small bowel and colon are normal in caliber. No bowel obstruction. There i s suggestion of some localized wall thickening along the right colon. This could represent a colonic mass or localized inflammation. Scattered colonic diverticulosis along the descending and sigmoid col on, without evidence of diverticulitis. Small amount of free fluid in the abdomen and pelvis, surroun ding the liver and extending along the right paracolic gutter and into the deep pelvis. No free intra peritoneal air. Pelvic structures: Negative. Lymph node assessment: An enlarged periportal lymph node is nonspecific, measuring 3.4 x 1.4 cm. Vessels: Scattered vascular calcifications. Normal caliber abdominal aorta. Musculoskeletal: No acute osseous findings or suspicious focal osseous lesions. Multilevel degenera tive changes throughout the spine. There are posterior laminectomy defects at L2-L4. Body wall: Diffuse edema along the soft tissues of the abdominal wall. Lung bases: Small layering right pleural effusion, with adjacent atelectasis. No suspicious pulmonar y nodule or mass in the visualized lung bases. IMPRESSION: 1. The liver is enlarged and contains numerous hypodense masses, suspicious for metastatic disease. T hese appear to be new from the prior chest CT of 11/30/2017. 2. There is suggestion of some localized wall thickening along the right colon. This could potentiall y represent a primary colonic malignancy, versus a localized region of colonic inflammation. 3. Small amount of free fluid in the abdomen and pelvis. 4. Nonspecific enlarged periportal lymph node, measuring 1.4 cm in short-axis diameter. 5. No other acute intra-abdominal findings by noncontrast CT imaging. 6. Colonic diverticulosis. 7. Small layering right pleural effusion with adjacent atelectasis. Findings were discussed with ANYA PERAZA at 03/27/2018 4:37 PM. Report Dictated By: Mike Hercules MD at 03/27/2018 4:20 PM Report E-Signed By: Mike Hercules MD at 03/27/2018 4:41 PM WSN:[id number]
[2018-03-27] MEDS ORDERED: MEROPENEM 1 GM VIAL 1 GM in NS(*) 0.9% 100 ML ADDVANT BAG 100 ML IVPB ONE (17:30)
[2018-03-27] MEDS ORDERED: VANCOMYCIN 1 GM ADDVIAL 1 GM in NS(*) 0.9% 250 ML ADDVAN BAG 250 ML IVPB ONE (17:30)
[2018-03-27] MEDS ORDERED: NS 0.9% IV ONE (19:35)
[2018-03-27] MEDS ORDERED: ONDANSETRON 4 MG/2 ML VIAL IVP PRN (19:35)
[2018-03-27] MEDS ORDERED: ALBUTEROL 8 GM INHALER INH PRN (19:35)
[2018-03-27] MEDS ORDERED: INFLUENZA VIRUS VAC 0.5 ML SYR IM ONLY ONE (19:35)
[2018-03-27] MEDS ORDERED: FLUSH 10 ML SYR IVP PRN (19:35)
--- NOTE | 2018-03-27 20:33 | Procedure Note ---
Central Line Procedure Note Indication for Central Line: IV fluids, medications, poor IV access. Consent Signed: Yes Central Line Lumen: Triple Central Line Procedure: Chlorhexidine Prep, Sterile Drapes Applied, Sterile Dressing Applied Central Line Position: R Internal Jugular Anesthesia Used: 1% Lidocaine CC's of Anesthesia: 4 Complications: None Central Line Post Position: Sutured, Confirmed Blood Return, Position Confirmed w/CXR DESIRAE JOHNSON MD Mar 27, 2018 20:33
--- NOTE | 2018-03-27 21:00 | History & Physical ---
History of Present Illness Chief Complaint Abdominal Pain History of Present Illness 83 Y male presented from Dr Johnson outpt office after found to have BP in 80/ 40 range. Reports abdominal pain 1-2 weeks duration but refused to seek medical attention until pain became intolerable today. Pain is epigastric, radiates to back rated 7-9/10 described as being tied in knots. Found to be anemic, hypotensive, elevated d-dimer, elevated lactic acid, low bicarb. Suspected to be septic but no localizing symptoms apart from abdominal pain. CT abdomen demonstrated R colon thickening, hypodense lesions in liver concerning for metastatic disease. Colonoscopy earlier this year demonstrated 2 very large polyps but had not felt up to recommended colon resection during this interval. 2 units PRBC were given and one unit FFP in ER, 1L NS was given with corresponding increase in BP. Denied fevers, bowel changes, n/v, rash, [place]. History Problems: (1) COPD (chronic obstructive pulmonary disease) Status: Chronic (2) Essential hypertension Status: Chronic (3) Adenomatous polyp of ascending colon Status: Chronic (4) Pulmonary embolism Status: Chronic (5) Type 2 diabetes mellitus Status: Chronic Home Meds Active Scripts Ranitidine Hcl (RANITIDINE HCL) 150 Mg Tablet, 1 TAB PO BID, #60 TAB 0 Refills Prov:DESIRAE JOHNSON MD 03/06/18 Nortriptyline Hcl (NORTRIPTYLINE HCL) 10 Mg Cap, 10 MG PO HS, #30 CAP 0 Refills Prov:DESIRAE YIN DO 11/02/17 Albuterol Sulfate (VENTOLIN HFA) 18 Gm Inh, 2 PUFF INH Q4-6H Y for SHORTNESS OF BREATH, #1 INH 0 Refills Prov:DESIRAE YIN DO 11/02/17 Losartan/Hydrochlorothiazide (LOSARTAN-HCTZ 100-12.5 MG TAB) 1 Each Tablet, 1 TAB PO QDAY, #30 TAB 0 Refills Prov:DESIRAE YIN DO 11/02/17 Amlodipine Besylate (AMLODIPINE BESYLATE) 10 Mg Tablet, 1 TAB PO QDAY, #30 TAB 0 Refills Prov:DESIRAE YIN DO 11/02/17 Glimepiride (GLIMEPIRIDE) 4 Mg Tablet, 1 TAB PO QDAY, #30 TAB 0 Refills Prov:DESIRAE YIN DO 11/02/17 Gabapentin (GABAPENTIN) 300 Mg Capsule, 1 CAP PO TID, #90 CAPSULE 0 Refills Prov:DESIRAE YIN 11/02/17 Metformin Hcl (METFORMIN HCL ER) 500 Mg Tabcr, 2 TAB PO QHS, #60 TAB 0 Refills Prov:ANNAMARIADESIRAE 11/02/17 Ipratropium/Albuterol Sulfate (IPRAT-ALBUT 0.5-3(2.5) MG/3 ML) 3 Ml Ampul.neb, 3 ML NEB TIDR, #90 INH Prov:DYAN JONES MD 10/26/17 Guaifenesin (MUCINEX) 600 Mg Tablet.er, 600 MG PO BID, #60 TAB Prov:DYAN JONES MD 10/26/17 Fluticasone/Salmeterol (ADVAIR 500-50 DISKUS) 1 Each Disk.w.dev, 1 PUFF IH BID, #3 INHALER 4 Refills Prov:ZAHRA GONZALES MD 03/29/17 True Metrix Glucose Test Strip (True Metrix Glucose Test Strip) 1 Each Strip, 1 STRIP MC DAILY, #400 BOX 4 Refills Use to test blood sugars 4 times daily Prov:ZAHRA GONZALES MD 11/11/16 Blood Sugar Diagnostic (TRUETEST TEST STRIPS) 1 Each Strip, 1 EACH MC QID, #400 STRIP 4 Refills Prov:ZAHRA GONZALES MD 10/08/15 Reported Medications Iron (IRON) Unknown Strength Tablet, PO QDAY 01/31/18 Allergies: Coded Allergies: Penicillins (Verified Allergy, Severe, hives, 11/30/17) Patient History: FH: dementia MOTHER, , Age:92 FH: diabetes mellitus MOTHER, , Age:92 FH: lung disease FATHER, , Age:88 Hx Smoking: Yes (Smoked x5-10 years) Smoking Status: Former Smoker Exposure to Second Hand Smoke?: No Caffeine Intake: Coffee, Tea Caffeine/Cups Per Day: 1 cup coffee for breakfast, then drinks green or herbal tea Hx Alcohol Use: Yes Hx Substance Use Disorder: No Social Drug Use: Never Review of Systems Constitutional: Weight Loss, No Fever, No Chills, No Night Sweats Neurological: No Syncope, No Confusion, No Weakness, No Dizziness Eyes: No Vision Change, No Loss of Vision ENT: No Sinus Congestion, No Sore Throat Cardiovascular: No Chest Pain, No Palpitations Respiratory: No Shortness of Breath, No Cough, No Wheezing Gastrointestinal: No Nausea, No Vomiting, No Diarrhea, No Dysphagia, No Hematemesis, No Hematochezia, No Melena, Abdominal Pain Genitourinary: Other (genital pain), No Dysuria Musculoskeletal: No Pain, No Sprain, No Strain Psychiatric: No Depression, No Anxiety Exam Vital Signs Vital Signs Date Time Temp Pulse Resp B/P (MAP) Pulse Ox O2 Delivery O2 Flow Rate FiO2 03/27/18 18:20 101/53 (69) 03/27/18 17:55 87 11 100 03/27/18 17:00 10.0 03/27/18 14:23 97.4 Room Air General Appearance: Alert, Awake, Afebrile Neuro: No Gross deficits Eyes: PERRLA ENT: Normal (other than noted) Neck: No Masses Cardiovascular: Normal Rhythm & Peripheral Pulses Respiratory: No Respiratory Distress, Clear to Auscultation Chest: No Masses, No Tenderness GI: Other (mild distension, epigastric tenderness) : Other (scrotal and penile edema) Lymph: No Adenopathy Musculoskeletal: No Weakness/Pain Extremities: Warm, Pulses, Perfused, Edema (severe edema to umbilicus) Integumentary: Skin Intact without Lesion / Mass Psych: Alert & Oriented X3, Appropriate Mood & Affect Medical Decision Making Data Points Result Diagram: 03/27/188 03/27/18 1430 Item Value Date Time Lactate 10.2 mmol/L *H 03/27/18 1908 Aspartate Amino Transf (AST/SGOT) 345 U/L H 03/27/18 1430 Alanine Aminotransferase (ALT/SGPT) 235 U/L H 03/27/18 1430 Alkaline Phosphatase 389 U/L H 03/27/18 1430 Assessment and Plan Problems: (1) Sepsis Status: Acute Assessment & Plan: Unclear etiology, no localizing symptoms. Empiric ertapenem and vancomycin, renally dosed, most likely source intra abdominal. 2 units PRBC transfused in ER, will transfer additional 2 units to help intravascular volume retention and treat anemia. BP improving with IV fluids, finish 30mg/kg bolus. Blood cultures collected. CXR, UA negative. CT abdomen R colon thickening (can not exclude inflammation), concern for malignancy as well as hypodense lesions on liver concerning for metastasis. (2) Fuine-wu-xswggbe kidney injury Assessment & Plan: Likely 2/2 hypotension. UA bland sediment, BL Cr 1.1-1.2. Further work up if not stabilized and improved with IV fluid resuscitation and improved BP. (3) Leukocytosis Assessment & Plan: Likely 2/2 infectious process, broad spectrum Abx as above. (4) Lactic acid acidosis Assessment & Plan: Improving, believed 2/2 hypotension. Will trend lactic acid , should improve with BP increase after IV fluid bolus and blood products. (5) Hypotension Assessment & Plan: 2/2 sepsis, improving with IV fluid bolus. Monitor closely in ICU, hold off on central line at this time. Holding home amlodipine and losartan/HCTZ. (6) Essential hypertension Status: Chronic Assessment & Plan: Hold home amlodipine and losartan/HCTZ. Monitor BP. (7) COPD (chronic obstructive pulmonary disease) Status: Chronic Assessment & Plan: Resumed home inhaler regimen. Home BL is room air, no supplemental O2. (8) Adenomatous polyp of ascending colon Status: Chronic Assessment & Plan: Found earlier this year on colonoscopy, concern for metastatic malignancy given CT findings in liver. Will need continued outpt follow up with general surgery. 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 Likely 2/2 continued chronic loss in GI tract. Iron panel pending. (10) Elevated d-dimer Assessment & Plan: Previously Dx with PE in Oct 2017 prescribed Pradaxa, did not complete therapy 2/2 GI bleeding. Possible elevated d-dimer is secondary to this. Given anemia unable to anticoagulate at this time, will need to reevaluate. (11) Transaminitis Assessment & Plan: Likely 2/2 hypotension and mild shock liver. Monitor, should improve with BP improvement. (12) Edema of extremities Status: Chronic Assessment & Plan: Likely 2/2 3rd spacing. Blood product transfusions should improve intravascular volume, oncotic pressure. Will likely need diuresis once BP improved and stabilized. ECHO ordered as none on file, BNP mildly elevated. Venous Thromboembolism Antithrombotics Is Pt On Any Antithrombotics?: No Prophylaxis Tx Contraindicated Pharmacological Contraindicati: Active Bleeding Exam Sepsis Risk: No Definite Risk LEE MONE AVILEZ DO Mar 27, 2018 21:00
[2018-03-27] MEDS: SALMETEROL/FLUTIC 500/50 1 INH INH SCH (21:14)
[2018-03-27] MEDS: RANITIDINE HCL 150 MG TAB PO SCH (21:14)
[2018-03-27] MEDS: GABAPENTIN 300 MG CAP PO SCH (21:14)
[2018-03-27] MEDS: NORTRIPTYLINE HCL 10 MG CAP PO SCH (21:15)
[2018-03-27] MEDS: oxyCODONE HCL 5 MG CAP PO PRN (21:15)
[2018-03-27] MEDS: MORPHINE 2 MG/ML SYR IVP PRN (22:15)
[2018-03-27] MEDS: INSULIN HUM LISPRO 100 UN/ML 3 ML VIAL SUBQ PRN (22:16)
--- NOTE | 2018-03-27 22:52 | RADIOLOGY IMAGING REPORT ---
FACILITY: [facility] [place] PATIENT NAME: Ever Teixeira : 1935 MR: [id number] V: [id number] EXAM DATE: ORDERING PHYSICIAN: DESIRAE JOHNSON TECHNOLOG[place]: [place] [facility] [place] Ever Teixe[place] : 1935 Visit/Account:[id number] Date of Sevice: 03/27/2018 AP CHEST 03/27/2018 8:20 PM. INDICATION: s/p central line placement COMPARISON: Same-day radiograph. FINDINGS/IMPRESSION: Right IJ central venous catheter terminates in the superior vena cava. Slightly increased subsegment al atelectasis. No definite pleural effusion or pneumothorax. Heart size is normal. Report Dictated By: Rashawn Tony MD at 03/27/2018 10:47 PM Report E-Signed By: Rashawn Tony MD at 03/27/2018 10:48 PM WSN:[id number]
[2018-03-28] VITALS (48 sets, daily range): BP systolic 87–114; BP diastolic 43–75; Ht 180.3 cm; Wt 91.6 kg
[2018-03-28 05:03] LABS: PLATELET COUNT, AUTOMATED 130 K/uL (150-450)
[2018-03-28] MEDS: ALBUTEROL/IPRATROPIUM 3 ML NEB NEB SCH ×3 (05:41→17:05)
[2018-03-28] MEDS: SALMETEROL/FLUTIC 500/50 1 INH INH SCH ×2 (05:41→18:00)
[2018-03-28] MEDS: NS(*) 0.9% 1000 ML BAG 1,000 ML IV SCH ×2 (06:24→16:45)
[2018-03-28] MEDS ORDERED: MEROPENEM 1 GM VIAL 1 GM in NS(*) 0.9% 100 ML ADDVANT BAG 100 ML IV SCH (06:30)
[2018-03-28] MEDS ORDERED: NS(*) 0.9% 500 ML BAG 500 ML ONE (08:44)
[2018-03-28] MEDS: RANITIDINE HCL 150 MG TAB PO SCH ×2 (09:04→21:12)
[2018-03-28] MEDS: GABAPENTIN 300 MG CAP PO SCH ×3 (09:04→21:12)
[2018-03-28 09:25] LABS: INR 1.4
[2018-03-28] MEDS: oxyCODONE HCL 5 MG CAP PO PRN ×3 (09:32→17:30)
[2018-03-28] MEDS: NYSTATIN 100,000 U/GM PWD 15GM TP SCH ×2 (10:00→21:12)
--- NOTE | 2018-03-28 11:48 | Hospitalist Progress Note ---
Subjective Progress Notes Subjective He reports cp for the last week. His breathing is comfortable. He reports that the edema occurs when he gets hot, so has had it intermittently. Physical Exam Vital Signs Date Time Temp Pulse Resp B/P (MAP) Pulse Ox O2 Delivery O2 Flow Rate FiO2 03/28/18 11:14 89 12 03/28/18 11:05 93 Nasal Cannula 5.0 03/28/18 07:00 99.0 104/47 (66) Intake and Output 03/29/18 07:00 Intake Total 120 ml Output Total 125 ml Balance -5 ml Intake Oral 120 ml Output Urine Total 125 ml General Appearance: Other (Mild work of breathing. ) Neuro: No Gross deficits Cardiovascular: Regular Rate and Rhythm Respiratory: Clear to Auscultation GI: Soft and Non-Tender Extremities: Edema (2+ pitting in shins and arms) Result Diagram: 03/28/1843903/28/18439 Monitor Interpretation: Normal Sinus Rhythm Assessment and Plan Problems: (1) Sepsis Status: Acute Assessment & Plan: He presented with chest pain/upper abdominal pain for about a week and was found to be hypotensive in the surgical clinic. Unclear etiology without localizing symptoms. Empiric ertapenem and vancomycin, renally dosed. He is anemic. 2 units PRBC transfused in ER, and 2 units overnight. BP improving with IV fluids and blood. Lactate is trending down. Blood cultures collected. CXR/UA negative. CT abdomen R colon thickening (can not exclude inflammation), concern for malignancy as well as hypodense lesions on liver concerning for metastasis. He has a h/o PE and has been off Pradaxa for a couple of weeks. V/Q scan today. (2) Cqsrv-pn-acnqlar kidney injury Assessment & Plan: Likely from hypotension exacerbated by anemia. UA bland sediment, BL Cr 1.1-1.2. Further work up if not stabilized and improved with IV fluid resuscitation and improved BP. (3) Leukocytosis Assessment & Plan: Possibly from infectious process, broad spectrum Abx as above. (4) Lactic acid acidosis Assessment & Plan: See above. (5) Hypotension Assessment & Plan: See above. Monitor closely in ICU. Holding home amlodipine and losartan/HCTZ. (6) Essential hypertension Status: Chronic Assessment & Plan: Hold home amlodipine and losartan/HCTZ. Monitor BP. (7) COPD (chronic obstructive pulmonary disease) Status: Chronic Assessment & Plan: Resumed home inhaler regimen. Home BL is room air, no supplemental O2. (8) Adenomatous polyp of ascending colon Status: Chronic Assessment & Plan: Found earlier this year on colonoscopy, concern for metastatic malignancy given CT findings in liver. 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 Iron panel pending. Rechecking FOBT (10) Elevated d-dimer Assessment & Plan: Previously Dx with PE in Oct 2017 prescribed Pradaxa, which finished a couple weeks ago. Given anemia unable to anticoagulate at this time. Check a V/Q scan. The patient wants an IVC filter if indicated. (11) Transaminitis Assessment & Plan: Likely from hypotension and exacerbated by liver mets. T edwin/INR/alk phos are also elevated. No ductal dilatation noted on CT and abdominal exam is benign. (12) Edema of extremities Status: Chronic Assessment & Plan: Likely from 3rd spacing from portal hypertension. Blood product transfusions should improve intravascular volume, oncotic pressure. Will likely need diuresis once BP improved and stabilized. ECHO pending. BNP slightly elevated and some fluid in the abd/pelvis space. Exam Sepsis Risk: Severe Sepsis Risk MARGARITO SUH MD Mar 28, 2018 11:48
[2018-03-28 13:13] LABS: PLATELET COUNT, AUTOMATED 129 K/uL (150-450)
--- NOTE | 2018-03-28 16:43 | RADIOLOGY IMAGING REPORT ---
[facility] PATIENT NAME: Ever Teixeira : 1935 MR: [id number] V: [id number] EXAM DATE: ORDERING PHYSICIAN: MARGARITO SUH TECHNOLOGIST: Location: Patient: Ever Teixeira : 1935 Visit/Account:[id number] Date of Sevice: 03/28/2018 Examination: Nuclear medicine ventilation and perfusion imaging COMPARISON: Chest x-ray yesterday. HISTORY: chest pain TECHNIQUE: 35.7 mCi aerosolized technetium 99m DTPA was administered by inhalation. Multiplanar static images w ere obtained. 2.4 mCi Tc MAA was injected intravenously. Gamma camera images were obtained of the chest in various orientations. FINDINGS: Lung ventilation radiotracer distribution: Minimal heterogeneity. No segmental ventilation defect. Lung perfusion radiotracer distribution: Minimal heterogeneity. No segmental perfusion defect. Correlation to chest x-ray: Interstitial thickening. No consolidation or effusion. IMPRESSION: Negative VQ scan for pulmonary embolism. Report Dictated By: Sky Davidson MD at 03/28/2018 4:37 PM Report E-Signed By: Sky Davidson MD at 03/28/2018 4:39 PM WSN:[id number]
[2018-03-28] MEDS ORDERED: VANCOMYCIN 1 GM ADDVIAL 1 GM in NS(*) 0.9% 250 ML ADDVAN BAG 250 ML IVPB SCH (17:30)
[2018-03-28] MEDS: MEROPENEM 1 GM VIAL 1 GM in NS(*) 0.9% 100 ML ADDVANT BAG 100 ML IV SCH (17:31)
[2018-03-28] MEDS ORDERED: VANCOMYCIN(*) 1 GM VIAL 1 GM, VANCOMYCIN HCL 0.750 GM VIAL 0.75 GM in NS(*) 0.9% 250 ML... IVPB SCH (18:00)
[2018-03-28] MEDS: NORTRIPTYLINE HCL 10 MG CAP PO SCH (21:12)
[2018-03-29] VITALS (63 sets, daily range): BP systolic 86–123; BP diastolic 40–89
[2018-03-29] MEDS: oxyCODONE HCL 5 MG CAP PO PRN (00:19)
[2018-03-29] MEDS ORDERED: ALOE25CA PO (02:50)
[2018-03-29] MEDS ORDERED: ALPH200T3 PO (02:51)
[2018-03-29] MEDS ORDERED: VITA-175 PO (02:52)
[2018-03-29] MEDS ORDERED: [UNRECOGNIZED DRUG - OTHER] (02:54)
[2018-03-29] MEDS ORDERED: THIA100T6 PO ×2 (02:54→02:55)
[2018-03-29] MEDS ORDERED: Berberine PO (02:57)
[2018-03-29] MEDS ORDERED: CALC-1046 PO (03:08)
[2018-03-29] MEDS ORDERED: FOLI0.8C PO (03:08)
[2018-03-29] MEDS ORDERED: BILB100C2 PO (03:08)
[2018-03-29] MEDS ORDERED: UBID100C9 PO (03:08)
[2018-03-29] MEDS ORDERED: [UNRECOGNIZED DRUG - CODE] PO (03:08)
[2018-03-29] MEDS ORDERED: D3 PO (03:08)
[2018-03-29] MEDS ORDERED: [UNRECOGNIZED DRUG - CODE] PO (03:08)
[2018-03-29] MEDS ORDERED: GINK30CA PO (03:08)
[2018-03-29] MEDS ORDERED: FENU500C PO (03:08)
[2018-03-29] MEDS ORDERED: chlorella PO (03:08)
[2018-03-29] MEDS ORDERED: [UNRECOGNIZED DRUG - OTHER] PO (03:10)
[2018-03-29] MEDS ORDERED: BLUE5000 PO (03:26)
[2018-03-29] MEDS ORDERED: RED600CA15 PO (03:26)
[2018-03-29] MEDS ORDERED: MAGN250T34 PO (03:26)
[2018-03-29] MEDS ORDERED: ZINC50TA43 PO (03:26)
[2018-03-29] MEDS ORDERED: LEVO500C PO (03:26)
[2018-03-29] MEDS ORDERED: B 12 PO (03:26)
[2018-03-29] MEDS ORDERED: RESV250C PO (03:26)
[2018-03-29] MEDS ORDERED: ASCO-480 PO (03:26)
[2018-03-29] MEDS ORDERED: ARGI500T PO (03:26)
[2018-03-29] MEDS ORDERED: AZIT-17 PO (03:26)
[2018-03-29] MEDS ORDERED: K2 PO (03:26)
[2018-03-29] MEDS ORDERED: VITA-197 PO (03:26)
[2018-03-29] MEDS ORDERED: POTA99TA6 PO (03:26)
[2018-03-29] MEDS ORDERED: ALB18R INH (03:26)
[2018-03-29] MEDS ORDERED: SELE200T32 PO (03:26)
[2018-03-29] MEDS ORDERED: POTA99TA10 PO (03:26)
[2018-03-29] MEDS ORDERED: PRED20TA6 PO (03:26)
[2018-03-29] MEDS: MEROPENEM 1 GM VIAL 1 GM in NS(*) 0.9% 100 ML ADDVANT BAG 100 ML IV SCH ×2 (05:28→17:05)
[2018-03-29 05:38] LABS: PLATELET COUNT, AUTOMATED 118 K/uL (150-450)
[2018-03-29] MEDS: SALMETEROL/FLUTIC 500/50 1 INH INH SCH ×2 (05:47→17:52)
[2018-03-29] MEDS: ALBUTEROL/IPRATROPIUM 3 ML NEB NEB SCH ×3 (05:47→17:47)
--- NOTE | 2018-03-29 06:54 | RADIOLOGY IMAGING REPORT ---
FACILITY: [facility] PATIENT NAME: Ever Teixeira : 1935 MR: [id number] V: [id number] EXAM DATE: ORDERING PHYSICIAN: MARGARITO SUH TECHNOLOGIST: [facility] Patient: Ever Teixeira : 1935 Visit/Account:[id number] Date of Sevice: 03/29/2018 CHEST SINGLE AP COMPARISONS: Single view chest dated March 27, 2018 ADDITIONAL PERTINENT HISTORY: Hypoxia FINDINGS: Life-support: Right internal jugular venous port with its tip at the cavoatrial junction. Cardiomediastinal silhouette: Negative. Pulmonary vasculature: Atherosclerotic disease of the thoracic aortic arch. Lung shelby: Decreased lung volumes with mild bibasilar atelectatic change. Pleural spaces: Negative. Osseous structures: Negative. Surrounding soft tissues: Negative. IMPRESSION: 1. Decreased lung volumes with mild bibasilar atelectatic change. 2. No other acute process. Report Dictated By: Dillon Jackson MD at 03/29/2018 6:48 AM Report E-Signed By: Dillon Jackson MD at 03/29/2018 6:50 AM WSN:[id number]
[2018-03-29] MEDS: MORPHINE 2 MG/ML SYR IVP PRN (07:35)
[2018-03-29] MEDS: RANITIDINE HCL 150 MG TAB PO SCH ×3 (09:00→21:00)
[2018-03-29] MEDS: ALBUMIN HUMAN 25% 50 ML VIAL 50 ML IVPB SCH ×2 (09:42→21:11)
[2018-03-29] MEDS: NYSTATIN 100,000 U/GM PWD 15GM TP SCH ×2 (09:42→21:11)
[2018-03-29] MEDS: GABAPENTIN 300 MG CAP PO SCH ×3 (09:42→21:00)
[2018-03-29] MEDS ORDERED: FUROSEMIDE 20 MG/2 ML VIAL IVP ONE (10:00)
--- NOTE | 2018-03-29 10:04 | RADIOLOGY IMAGING REPORT ---
FACILITY: [facility] [place] PATIENT NAME: Ever Teixeira : 1935 MR: [id number] V: [id number] EXAM DATE: ORDERING PHYSICIAN: MARGARITO SUH TECHNOLOGIST: Location: [facility] Patient: Ever Teixeira : 1935 Visit/Account:[id number] Date of Sevice: 03/29/2018 LIVER HISTORY: septic, elevated LFT's ADDITIONAL HISTORY: History of colon cancer COMPARISON: Comparison made to CT scan of the chest performed 10/31/2017 which captures portion of e upper abdominal viscera. FINDINGS: Liver: Mild hepatomegaly with liver measuring 21 cm craniocaudad dimension. Liver has a slightly mot tled echotexture and there is an apparent subcapsular lesion near the calos hepatis measuring 3.2 x 2 .6 x 4.0 cm which is not seen on the visualized portions the liver on the preceding study. No other well-defined lesions are seen but the appearance raises possibility of an infiltrative process. Portal vein patency is confirmed and there is appropriate hepatopedal flow. Appropriate hepatic vein s patency and flow direction confirmed. Gallbladder: Unremarkable; no stones or sludge. Common duct: 5.8 mm diameter. Pancreas: Posterior body and tail are obscured by the bowel gas. Visualized portions the pancreas un remarkable. Right kidney: 12.1 cm in length. There is a simple appearing cyst at the superior pole measuring 4.3 x 4.2 x 3.9 cm. This is also seen on the previous study. Upper abdominal aorta and IVC: Obscured by bowel gas Ascites: There has been interval development of a very small amount of ascites. IMPRESSION: Mild hepatomegaly. Slightly mottled hepatic echotexture and at least one subcapsular hypoechoic lesi on seen with new minimal ascites raises concern for a hepatic infiltrative process. Metastatic disea se, particularly history of colon cancer, within the differential. Recommend follow-up multiphasic c ontrasted CT or MRI of the abdomen for further evaluation of the liver parenchyma. Limited view of the pancreas which is most obscured by bowel gas. Aorta and IVC obscured and patency could not be confirmed. Report Dictated By: Ramiro Robb MD at 03/29/2018 9:40 AM Report E-Signed By: Ramiro Robb MD at 03/29/2018 9:58 AM WSN:[id number]
[2018-03-29] MEDS: INSULIN HUM LISPRO 100 UN/ML 3 ML VIAL SUBQ PRN (11:39)
[2018-03-29] MEDS ORDERED: FUROSEMIDE 20 MG/2 ML VIAL IVP SCH (14:20)
[2018-03-29] MEDS ORDERED: NOREPINE BITAR* 4 MG/4 ML AMP 8 MG in D5W(*) 500 ML BAG 492 ML IV PRN (14:30)
--- NOTE | 2018-03-29 15:42 | Hospitalist Progress Note ---
Subjective Progress Notes Subjective Patient admitted for abdominal pain, lactic acidosis, hypotension. More lethargic today, BP has decreased to borderline acceptable. Physical Exam Vital Signs Date Time Temp Pulse Resp B/P (MAP) Pulse Ox O2 Delivery O2 Flow Rate FiO2 03/29/18 15:03 92 03/29/18 15:01 92 High-Flow Nasal Cannula 6.0 03/29/18 15:00 97.9 7 92/40 (57) Intake and Output 03/30/18 07:00 Intake Total 56 ml Output Total 300 ml Balance -244 ml IV Total 56 ml Output Urine Total 300 ml # Bowel Movements 1 General Appearance: Afebrile Neuro: No Gross deficits Eyes: PERRLA ENT: Normal Neck: No Masses Cardiovascular: Normal Rhythm & Peripheral Pulses Respiratory: No Respiratory Distress, Clear to Auscultation Chest: No Masses GI: Other (palpable liver, tenderness RUQ) : Other (scrotal edema) Lymph: No Adenopathy Musculoskeletal: No Weakness/Pain Extremities: Soft and Non Tender, Pulses, Edema Integumentary: Skin Intact without Lesion / Mass Psych: Alert & Oriented X3 Result Diagram: 03/29/18 0518 03/29/18 0518 Monitor Interpretation: Normal Sinus Rhythm Assessment and Plan Problems: (1) Sepsis Status: Acute Assessment & Plan: He presented with chest pain/upper abdominal pain for about a week and was found to be hypotensive in the surgical clinic. Unclear etiology without localizing symptoms. Empiric ertapenem renally dosed. He is anemic. 2 units PRBC transfused in ER, and 2 units overnight. Lactate stable but elevated. Blood cultures NGTD. CXR/UA negative. CT abdomen R colon thickening (can not exclude inflammation), concern for malignancy as well as hypodense lesions on liver concerning for metastasis. He has a h/o PE and has been off Pradaxa for a couple of weeks. V/Q scan today no evidence PE. RUQ US shows good flow, there is a 4cm lesion not visualized previously near calos hepatis. Question if clinical picture is secondary to infection. Begin Levophed to improve BP and attempt to improve renal flow. Decrease morphine given apparent hepatic dysfunction and patient lethargy. Discussed with family concern for multiorgan system failure and now likely metastatic GI malignancy, continue goals of care. (2) Udcmp-tu-ttlkbon kidney injury Assessment & Plan: Likely from hypotension exacerbated by anemia. UA bland sediment, BL Cr 1.1-1.2. UOP decreased, trial 20mg IV Lasix with approx 250cc out. Begin Levophed, also albumin infusion 25% x 2 doses to support intravascular volume and pressure. (3) Leukocytosis Assessment & Plan: Question if from infectious process no source yet identified , broad spectrum Abx as above. Elevated but stable. (4) Lactic acid acidosis Assessment & Plan: Stable but elevated. (5) Hypotension Assessment & Plan: Begin Levophed, Holding home amlodipine and losartan/HCTZ. (6) Essential hypertension Status: Chronic Assessment & Plan: Hold home amlodipine and losartan/HCTZ. Monitor BP. (7) COPD (chronic obstructive pulmonary disease) Status: Chronic Assessment & Plan: Home inhaler regimen. Home BL is room air, no supplemental O2. (8) Adenomatous polyp of ascending colon Status: Chronic Assessment & Plan: Found earlier this year on colonoscopy, concern for metastatic malignancy given CT findings in liver. CEA 188 likely GI malignancy. 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 (10) Elevated d-dimer Assessment & Plan: Previously Dx with PE in Oct 2017 prescribed Pradaxa, which finished a couple weeks ago. Given anemia unable to anticoagulate at this time. V/Q scan no identified VQ shunting. The patient wants an IVC filter if indicated. (11) Transaminitis Assessment & Plan: Likely from hypotension and exacerbated by liver mets. T edwin/INR/alk phos are also elevated. No ductal dilatation noted on CT or US. (12) Edema of extremities Status: Chronic Assessment & Plan: 3rd spacing from poor oncotic pressure, giving albumin. Diuresis if able. Exam Sepsis Risk: Severe Sepsis Risk MONE CLINTON DO Mar 29, 2018 15:42
[2018-03-29] MEDS: NORTRIPTYLINE HCL 10 MG CAP PO SCH (21:00)
[2018-03-30] VITALS (78 sets, daily range): BP systolic 89–132; BP diastolic 49–70
[2018-03-30] MEDS: MEROPENEM 1 GM VIAL 1 GM in NS(*) 0.9% 100 ML ADDVANT BAG 100 ML IV SCH ×2 (05:03→18:06)
[2018-03-30] MEDS: SALMETEROL/FLUTIC 500/50 1 INH INH SCH ×2 (05:41→17:24)
[2018-03-30] MEDS: ALBUTEROL/IPRATROPIUM 3 ML NEB NEB SCH ×4 (05:41→20:20)
[2018-03-30 05:44] LABS: PLATELET COUNT, AUTOMATED 121 K/uL (150-450)
[2018-03-30] MEDS ORDERED: NS(*) 0.9% 500 ML BAG 500 ML IV ONE (07:40)
[2018-03-30] MEDS: GABAPENTIN 300 MG CAP PO SCH ×3 (08:26→21:00)
[2018-03-30] MEDS: RANITIDINE HCL 150 MG TAB PO SCH (08:26)
[2018-03-30] MEDS: NYSTATIN 100,000 U/GM PWD 15GM TP SCH ×2 (08:27→21:00)
[2018-03-30] MEDS: MORPHINE 2 MG/ML SYR IVP PRN ×2 (08:28→13:44)
--- NOTE | 2018-03-30 09:59 | Medical Nutrition Therapy ---
Nutrition Anthropometrics Height (Inches): 71.00 Height (Calculated Centimeters: 180.843348 Weight (Pounds): 194 Weight (Calculated Kilograms): 88.082 BMI: 27.1 Hx Weight Gain: Yes (wt. up from 73.4kg to 88 kg due to edema) Joshua Nutrition Score: Probably Inadequate Joshua Nutrition Risk Score: 13 Dietary Referral Nutrition Risk Factors: Special Diet Nutrition Risk Comment: diabetic Nutritional Diagnosis Nutritional Risk Acuity 2: Chronic Renal Failure, Sepsis Nutritional Risk Acuity 3: Nausea, Nutrit Anemia Nutritional Risk Acuity 4: Good Appetite Past Medical History: HTN, COPD, T2DM,CAD, hypercholesterolemia, laminectomy, PE, polyps found during colonoscopy Nutritional Acuity: 2-Moderate Nutrition Diagnosis: Inadequate Food Intake Nutrition Etiology: Fatique, Physiological Causes Nutrition Problem/Etiology/Sym: Inadequate food intake R/T physiological causes AEB 24 hr recall of only oatmeal and 2 juices and sleepiness that interferes with eating. Energy Requirement: 2087 ([place]-St. Jeor x 1.3 SF) Protein Requirement: 88 (1 g/kg) Fluid Requirement: 2087 (1ml/kcal req.) Diet Type: Diabetic Nutrition Intervention: Cont diet as ordered, Encourage intake Additional Diet Restrictions: OFFER SUGAR FREE PROTEIN SUPPLEMENT WITH EACH MEAL. Diet Comment To [facility]: OFFER EASY TO CHEW/SWALLOW FOODS. Nutritional Education Nutrition Education Topic: Diabetic Nutrition Learning Barriers: Cognitive (pt. sleeping - talked with son) Learning Readiness: Not Ready (pt. sleeping) Response to Teaching: Unable to comprehend Teaching Recipient: Family (Son) Nutrition Counseling: Attempted diabetic education but pt. was asleep during visit this afternoon. Talked with his son about possibly giving him a sugar free protein supplement. Son said father has issues swallowing b/c mouth gets dry. Pt. also very sleepy and unable to eat much without falling asleep. Nutrition Monitoring & Eval Nutrition Goals: Drink > 1200 cc/day, Eat 75-100% Meal RD Patient Assessment Time: [address] Assessment Type: RD Assessment Patient Nutrition Acuity: 2-Moderate Follow Up Date: Mar 30, 2018 Nutritional Comment: 03/28 Pt. admitted with sepsis and anemia. Also presented with epigastric abdominal pain and distention. He is diabetic and on insulin. Hgb, Hct running low and lactate running high but trending down. Pt. somnolent - went in to talk with him but he was asleep. Son said pt. has been too tired to eat much. He does drink Ensure at home. Explained importance of pt. getting enough kcal and protein. Would recommend protein supplement. Pt. has been gaining wt. probably due to 2-3+ edema all over. Concerned about pt. nutrition status given low intake. Will monitor intake. - OLIVIA BARAKAT Mar 28, 2018 14:38
--- NOTE | 2018-03-30 10:17 | Medical Nutrition Therapy ---
Nutrition Anthropometrics Height (Inches): 71.00 Height (Calculated Centimeters: [phone] Weight (Pounds): 191 Weight (Calculated Kilograms): 86.778 Joshua Nutrition Score: Probably Inadequate Joshua Nutrition Risk Score: 12 Dietary Referral Nutrition Risk Factors: Special Diet Nutrition Risk Comment: diabetic Nutritional Diagnosis Nutritional Risk Acuity 2: Chronic Renal Failure, Sepsis Nutritional Risk Acuity 3: Nausea, Nutrit Anemia Nutritional Risk Acuity 4: Good Appetite Past Medical History: HTN, COPD, T2DM,CAD, hypercholesterolemia, laminectomy leading to PE, polyps found during colonoscopy Nutritional Acuity: 2-Moderate Nutrition Diagnosis: Increased Nutrient Needs Nutrition Etiology: Physiological Causes Nutrition Problem/Etiology/Sym: AEB dx sepsis Energy Requirement: 2087 (([place]. Jeor x 1.3 SF)) Protein Requirement: 103 (1.2 gm/kg) Fluid Requirement: 2610 (30ml/kg) Nutrition Intervention: Cont diet as ordered, Encourage intake Additional Diet Restrictions: OFFER SF NUTR SUPPLEMENT Nutrition Monitoring & Eval Nutrition Goals: Eat 75-100% Meal RD Patient Assessment Time: [address] Assessment Type: RD Re-Assessment Patient Nutrition Acuity: 2-Moderate Follow Up Date: Apr 01, 2018 Nutritional Comment: 03/30 Pt admitted for sepsis. Pt also has elevated CEA 188 likely GI malignancy per hospitalist report. Pt is on diabetic diet but eating 0-50%. Alb has declnied to 2.1. Will cont to offer nutr supplment and encourage intake. DEEPALI LAFLEUR Mar 30, 2018 09:48
--- NOTE | 2018-03-30 11:16 | Hospitalist Progress Note ---
Subjective Progress Notes Subjective He has been more somnolent. He reports continued abdominal pain. He denies SOB. He continues to have mild chest tightness. Physical Exam Vital Signs Date Time Temp Pulse Resp B/P (MAP) Pulse Ox O2 Delivery O2 Flow Rate FiO2 03/30/18 10:00 100 03/30/18 09:00 10 121/62 (81) 89 High-Flow Nasal Cannula 6.0 03/30/18 08:45 98.9 Intake and Output 03/31/18 06:59 Intake Total 800 ml Balance 800 ml Intake Oral 800 ml General Appearance: Alert, Awake, No Acute Distress Cardiovascular: Regular Rate and Rhythm Respiratory: Clear to Auscultation GI: Other (Liver edge easily palpable about 2cm below costal margin and tender. He is tender in the LLQ quadrant to palpation. Soft, non-distended.) Extremities: Edema (Much scrotal edema and pitting edema in dependant areas of body) Result Diagram: 03/30/18 0520 03/30/18 0520 Monitor Interpretation: Normal Sinus Rhythm Assessment and Plan Problems: (1) Sepsis Status: Acute Assessment & Plan: He presented with chest pain/upper abdominal pain for about a week and was found to be hypotensive in the surgical clinic. Unclear etiology without localizing symptoms. Empiric ertapenem renally dosed. He was anemic. 2 units PRBC transfused in ER, and 2 units overnight. Lactate stable but elevated. Total bilirubin increasing. Creatinine increasing. Blood cultures NGTD. CXR/UA negative. CT abdomen R colon thickening (can not exclude inflammation), concern for malignancy as well as hypodense lesions on liver concerning for metastasis. He has a h/o PE and has been off Pradaxa for a couple of weeks. V/Q scan without evidence PE. RUQ US shows good flow, there is a 4cm lesion not visualized previously near calos hepatis. Infection seems less likely and more concerned about fulminant liver failure related to the liver lesions. Now on Levophed to improve BP and attempt to improve renal flow. Decrease morphine given apparent hepatic dysfunction and patient lethargy. Discussed with family concern for multiorgan system failure and now likely metastatic GI malignancy, continue goals of care, but they are considering comfort care. They do not want the patient to have an MRI of the abdomen because of the discomfort. I am going to speak with Oncology about possible options. (2) Fyhvr-yi-draxxjz kidney injury Assessment & Plan: Possibly from hypotension exacerbated by anemia. UA bland sediment, BL Cr 1.1-1.2. UOP decreased, a trial of 20mg IV Lasix with Levophed and albumin infusion 25% x 2 doses did help with diuresis, but creatinine increased. Concerned about hepatorenal syndrome. (3) Leukocytosis Assessment & Plan: Question if from infectious process no source yet identified , broad spectrum Abx as above. Elevated but stable. (4) Lactic acid acidosis Assessment & Plan: Stable but elevated. Metformin is potentially exacerbating the continued elevation, but question whether the rapid proliferation of liver mets is causing. (5) Hypotension Assessment & Plan: Begin Levophed, Holding home amlodipine and losartan/HCTZ. (6) Essential hypertension Status: Chronic Assessment & Plan: Hold home amlodipine and losartan/HCTZ. Monitor BP. (7) COPD (chronic obstructive pulmonary disease) Status: Chronic Assessment & Plan: Home inhaler regimen. Home BL is room air, no supplemental O2. (8) Adenomatous polyp of ascending colon Status: Chronic Assessment & Plan: Found earlier this year on colonoscopy, concern for metastatic malignancy given CT findings in liver. CEA 188 likely GI malignancy. 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 (10) Elevated d-dimer Assessment & Plan: Previously Dx with PE in Oct 2017 prescribed Pradaxa, which finished a couple weeks ago. V/Q scan was negative for PE. (11) Transaminitis Assessment & Plan: Likely from hypotension and exacerbated by liver mets. T edwin/INR/alk phos are also elevated. No ductal dilatation noted on CT or US. (12) Edema of extremities Status: Chronic Assessment & Plan: 3rd spacing from poor oncotic pressure, given albumin. Unable to diurese, see above. Exam Sepsis Risk: Severe Sepsis Risk MARGARITO SUH MD Mar 30, 2018 11:16
[2018-03-30 11:19] LABS: INR 1.52
[2018-03-30] MEDS ORDERED: DEXTROSE 50% 50 ML SYR IVP ONE (18:20)
[2018-03-30] MEDS ORDERED: ALBUTEROL 2.5 MG/3 ML NEB NEB PRN (19:50)
[2018-03-30] MEDS ORDERED: LORazepam 2 MG/ML VIAL IVP PRN (19:50)
--- NOTE | 2018-03-30 19:55 | Miscellaneous Provider Note ---
Miscellaneous Provider Note Note The family had a long discussion with Dr. Smith (Oncology). They would like to make the patient comfort care only. Will stop the antibiotics and any medication not contributing to comfort. Ativan to be added for anxiety. Will see about he patient going to the [facility], per the family's request. MARGARITO SUH MD Mar 30, 2018 19:55
[2018-03-30] MEDS: FAMOTIDINE(*) 20MG/50ML PREMIX 50 ML IVPB SCH (21:00)
[2018-03-30] MEDS: NORTRIPTYLINE HCL 10 MG CAP PO SCH (21:00)
--- NOTE | 2018-03-30 22:48 | CONSULTATION ---
EVENT DATE: March 30, 2018 ATTENDING PHYSICIAN Isaiah Lobo MD CONSULTING PHYSICIAN Franck Gibson MD REASON FOR CONSULTATION Concern for metastatic colon cancer. CHIEF COMPLAINT The patient is currently critically ill in the Intensive Care Unit, on vasopressors, and with altered mentation. HISTORY OF PRESENT ILLNESS Mr. Teixeira is an 83-year-old gentleman with a history of COPD, hypertension, pulmonary embolism, and type 2 diabetes mellitus. The patient is unable to give history today. The vast majority of time spent in the Intensive Care Unit was with several family members of the patient discussing his overall status and potential options from an oncology standpoint. To review, the patient had recently presented as outpatient to the surgical clinic and was found to be hypotensive. Per his family members today, he had been feeling more and more weak and tired recently, and his son relates that prior to his seeking care that his dad had looked so pale that he was "transparent." There is also note in the chart of abdominal pain becoming unbearable. The patient has been found to be anemic, hypotensive, and with lactic acidosis. There is suspicion for sepsis, and the patient has been on vasopressors. Per his ICU nurse, he was recently taken off vasopressors. In any case, he has undergone a CT scan of the abdomen which demonstrated right colon thickening as well as multiple hypodense lesions in the liver concerning for metastatic disease. Per discussion with his family today, he had undergone colonoscopy in November which revealed two large polyps. Upon review of his prior pathology, there had been concern for a possible high-grade neuroendocrine carcinoma, but a definitive diagnosis could not be made from that specimen. REVIEW OF SYSTEMS Unobtainable due to altered mentation. PAST MEDICAL HISTORY 1. COPD. 2. Essential hypertension. 3. Colonic polyposis. 4. History of pulmonary embolism and reported GI bleed. 5. Type 2 diabetes mellitus. CURRENT MEDICATIONS 1. Zantac. 2. Albuterol p.r.n. 3. Glimepiride. 4. Gabapentin. 5. Other p.r.n. medications in the Intensive Care Unit. ALLERGIES PENICILLIN. SOCIAL HISTORY Patient has a reported smoking history as well as alcohol use. There is no history of illicit drug use per his medical record. FAMILY HISTORY There is a history of dementia, diabetes mellitus, lung disease, and potentially history of breast cancer in his mother. VITAL SIGNS Blood pressure 127/60, heart rate is 92, respirations 8, oxygen saturation is 92 % on 6L high-flow nasal cannula. PHYSICAL EXAMINATION Deferred today at the patient's family's request. LABORATORY STUDIES Reviewed per the [facility] record. IMAGING Reviewed per the [facility] record. PATHOLOGY See above. Reviewed per the [facility] record. 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 I had a difficult, but thorough discussion with the patient's family members today. They preferred to have this discussion away from the bedside as they are concerned with the patient's current altered mentation that the content our discussion could potentially be very upsetting and put him in the wrong direction. This is understandable. We began by reviewing his colonoscopy findings and the surgical pathology that is potentially consistent with a high- grade carcinoma, potentially with neuroendocrine features. We also discussed the results of his imaging performed here at [facility]. He has multiple metastatic lesions in the liver, and as discussed, one would have to presume in this situation that these represent metastases from a high-grade colonic neoplasm. In any case, he has evidence of significant liver dysfunction, and though I am unsure of his baseline renal function, his serum creatinine is currently 2.5, likely indicative of acute kidney injury. There is concern for underlying sepsis, although this may be showing early signs of improvement as his Levophed was just stopped. As discussed today, I am very concerned that if he is to partially overcome his acute illness, that he will be able to return to meaningful function and quality of life. Obviously, it is impossible to tell whether he will be able to make enough clinical recovery to eventually consider the possibility of palliative chemotherapy. In any case, further oncologic diagnostics or consideration for palliative therapy are certainly not reasonable at this point. The patient's family members do seem quite well informed and insightful about the patient's situation, and they are quite sure that given this scenario , the patient would want to be kept comfortable. I did allow time for questions to be asked today, and I believe I answered all of these questions to their satisfaction. I believe the patient's family members are very well informed and that their intentions at this point will be for the patient to remain comfortable. I would be more than happy to visit with the patient's family or obviously the patient if I can be of any help during his hospitalization or thereafter. Thank you very much, Dr. Lobo, for allowing me to take part in the care of this patient. Please do not hesitate to call with questions or concerns. I spent a total of 45 minutes of total care time today including review of medical records as well as discussion with the patient's family members. DIONISIO
[2018-03-31] VITALS (8 sets, daily range): BP systolic 97–108; BP diastolic 45–54
[2018-03-31] MEDS ORDERED: DEXTROSE 50% 50 ML SYR IVP ONE (00:45)
[2018-03-31] MEDS ORDERED: DEXTROSE 50% 50 ML SYR ONE (01:05)
[2018-03-31] MEDS: MORPHINE 2 MG/ML SYR IVP PRN ×2 (02:40→06:09)
[2018-03-31] MEDS: SALMETEROL/FLUTIC 500/50 1 INH INH SCH (05:50)
[2018-03-31] MEDS: ALBUTEROL/IPRATROPIUM 3 ML NEB NEB SCH ×2 (05:52→11:14)
[2018-03-31] MEDS: GABAPENTIN 300 MG CAP PO SCH (09:00)
[2018-03-31] MEDS ORDERED: KETOROLAC 30 MG/ML VIAL IVP ONE (09:30)
[2018-03-31] MEDS ORDERED: NALOXONE HCL 0.4 MG/ML VIAL IVP PRN (10:30)
[2018-03-31] MEDS ORDERED: MORPHINE SULFATE 30 MG PCA IV PRN (10:30)
[2018-03-31] MEDS: FAMOTIDINE(*) 20MG/50ML PREMIX 50 ML IVPB SCH (10:46)
[2018-03-31] MEDS ORDERED: NORMOSOL R SOLN(*) 1000 ML BAG 1,000 ML IV ONE (10:51)
[2018-03-31] MEDS: NYSTATIN 100,000 U/GM PWD 15GM TP SCH (10:52)
--- NOTE | 2018-03-31 11:10 | Hospitalist Depart ---
Discharge Summary Reason for Hosp/Final Diag: (1) Acute liver failure Hospital Course & Plan: He presented with chest pain/upper abdominal pain for about a week and was found to be hypotensive in the surgical clinic. Empiric ertapenem renally dosed. He was anemic. 2 units PRBC transfused in ER, and 2 units overnight. Lactate stable but elevated. Total bilirubin increasing. Creatinine increasing. Blood cultures negative. CXR/UA negative. CT abdomen R colon thickening (can not exclude inflammation), concern for malignancy as well as hypodense lesions on liver concerning for metastasis. He has a h/o PE and has been off Pradaxa for a couple of weeks. V/Q scan without evidence PE. RUQ US shows good flow, there is a 4cm lesion not visualized previously near calos hepatis. Infection seems less likely and more concerned about fulminant liver failure related to the liver lesions. 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 Discussed with family who wish to proceed with comfort care and hospice. (2) Thpps-fn-ykcrbgy kidney injury Hospital Course & Plan: Possibly from hypotension exacerbated by anemia. UA bland sediment, BL Cr 1.1-1.2. UOP decreased, a trial of 20mg IV Lasix with Levophed and albumin infusion 25% x 2 doses did help with diuresis, but creatinine increased. Concerned about hepatorenal syndrome. (3) Leukocytosis Hospital Course & Plan: Elevated but stable. Post empiric antibiotic therapy, likely this was reactive related to multiorgan failure. (4) Lactic acid acidosis Hospital Course & Plan: Stable but elevated. Rapid proliferation of liver mets is likely causing. (5) Hypotension Hospital Course & Plan: Patient transition to comfort care, pressors stopped and focus on comfort therapies. (6) Essential hypertension Status: Chronic Hospital Course & Plan: Hold home amlodipine and losartan/HCTZ. Comfort cares. (7) COPD (chronic obstructive pulmonary disease) Status: Chronic Hospital Course & Plan: Home inhaler regimen PRN for comfort. (8) Adenomatous polyp of ascending colon Status: Chronic Hospital Course & Plan: Found earlier this year on colonoscopy, concern for metastatic malignancy given CT findings in liver. CEA 188 likely GI malignancy. 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 (9) Anemia Hospital Course & Plan: Likely R colon malignancy, heme positive FOBT previously. (10) Elevated d-dimer Hospital Course & Plan: Previously Dx with PE in Oct 2017 prescribed Pradaxa, which finished a couple weeks ago. V/Q scan was negative for PE. (11) Transaminitis Hospital Course & Plan: Likely from hypotension and exacerbated by liver mets. T edwin/INR/alk phos are also elevated. No ductal dilatation noted on CT or US. (12) Edema of extremities Status: Chronic Hospital Course & Plan: 3rd spacing from poor oncotic pressure, given albumin. Unable to diurese, transition to comfort cares. Departure Weight (Pounds): 202 Weight (Ounces): 5.0 Result Diagram: 03/30/18 0520 03/30/18 1101 Condition: No Change Discharge Instructions Home Meds Active Scripts Losartan/Hydrochlorothiazide (LOSARTAN-HCTZ 100-12.5 MG TAB) 1 Each Tablet, 1 TAB PO QDAY, #30 TAB 0 Refills Prov:DESIRAE YIN DO 11/02/17 Amlodipine Besylate (AMLODIPINE BESYLATE) 10 Mg Tablet, 1 TAB PO QDAY, #30 TAB 0 Refills Prov:DESIRAE YIN DO 11/02/17 Glimepiride (GLIMEPIRIDE) 4 Mg Tablet, 1 TAB PO QDAY, #30 TAB 0 Refills Prov:DESIRAE YIN DO 11/02/17 Gabapentin (GABAPENTIN) 300 Mg Capsule, 1 CAP PO TID, #90 CAPSULE 0 Refills Prov:DESIRAE YIN DO 11/02/17 Metformin Hcl (METFORMIN HCL ER) 500 Mg Tabcr, 2 TAB PO QHS, #60 TAB 0 Refills Prov:DESIRAE YIN DO 11/02/17 True Metrix Glucose Test Strip (True Metrix Glucose Test Strip) 1 Each Strip, 1 STRIP MC DAILY, #400 BOX 4 Refills Use to test blood sugars 4 times daily Prov:ZAHRA GONZALES MD 11/11/16 Blood Sugar Diagnostic (TRUETEST TEST STRIPS) 1 Each Strip, 1 EACH MC QID, #400 STRIP 4 Refills Prov:ZAHRA GONZALES MD 10/08/15 Reported Medications Azithromycin (Z-PACK) 250 Mg Tablet, 250 MG PO PRN Y for SHORTNESS OF BREATH, # 6 DOSE-PACK take only if taking prednisone 03/29/18 Zinc Gluconate (ZINC) 50 Mg Tablet, 50 MG PO DAILY 03/29/18 Vitamin E Mixed (VITAMIN E) 400 Unit Capsule, 400 UNIT PO BID, CAPSULE 03/29/18 Ascorbic Acid (VITAMIN C WITH EDILSON HIPS) 1,000 Mg Tablet, 1000 MG PO DAILY 03/29/18 [B 12] No Conflict Check, 500 MCG PO DAILY 03/29/18 Albuterol Sulfate (VENTOLIN HFA) 18 Gm Inh, 2 PUFF INH Q4-6H Y for SHORTNESS OF BREATH, INH 03/29/18 Blue-Green Algae (Spirulina) 5,000 Gm Powder, 1 PO DAILY 03/29/18 Selenomethionine (SELENIUM) 200 Mcg Tablet, 200 MCG PO DAILY 03/29/18 Resveratrol (RESVERATROL) 250 Mg Capsule, 250 MG PO DAILY, CAPSULE 03/29/18 Red Yeast Rice (RED YEAST RICE) 600 Mg Capsule, 600 MG PO BID, CAPSULE 03/29/18 Prednisone (PREDNISONE) 20 Mg Tablet, 20 MG PO PRN, TAB take as needed for bronchitis 03/29/18 Potassium Gluconate (Potassium) 600 Mg (99 Mg) Tablet, 595 MG PO DAILY 03/29/18 Potassium Gluconate (POTASSIUM) 99 Mg Tablet, 99 MG PO DAILY 03/29/18 Magnesium Oxide (MAGNESIUM) 250 Mg Tablet, 250 MG PO DAILY 03/29/18 Levocarnitine Tartrate (L-CARNITINE) 500 Mg Capsule, 500 MG PO DAILY, CAPSULE 10 daily 03/29/18 Arginine (L-ARGININE) 500 Mg Tablet, 850 MG PO 10 daily 03/29/18 [K2] No Conflict Check, 100 MG PO DAILY 03/29/18 [Radha Basil] No Conflict Check, 400 MG PO DAILY 03/29/18 Gymnema [place] (GYMNEMA SYLVESTRIS LEAF) 1 Gm Powder, 400 MG PO DAILY 03/29/18 Ginseng (GINSENG) 250 Mg Capsule, 250 MG PO DAILY, CAPSULE 03/29/18 Ginkgo Biloba [place] Extract (Ginkgo Biloba) 30 Mg Capsule, 150 MG PO DAILY 03/29/18 Folic Acid (Folic Acid) 0.8 Mg Capsule, 800 MG PO DAILY 03/29/18 Fenugreek Seed Extract (FENUGREEK) 500 Mg Capsule, 610 MG PO DAILY, CAPSULE 03/29/18 [D3] No Conflict Check, 2000 MG PO DAILY 03/29/18 Ubidecarenone (CO Q-10) 100 Mg Capsule, 100 MG PO DAILY, CAPSULE 03/29/18 [chlorella] No Conflict Check, 500 MG PO DAILY 03/29/18 Calcium Carbonate (Calcium) 500 Mg Tab.chew, 600 MG PO DAILY 03/29/18 Bilberry (BILBERRY) 100 Mg Capsule, 375 MG PO DAILY, CAPSULE 03/29/18 [Berberine] No Conflict Check, 400 MG PO TID 03/29/18 Thiamine HCl (B-1) 100 Mg Tablet, 250 MG PO DAILY 03/29/18 Vitamin B Complex (B COMPLEX) 1 Each Tablet, 1 EACH PO DAILY 03/29/18 Alpha Lipoic Acid (ALPHA LIPOIC ACID) 200 Mg Tablet, 200 MG PO DAILY 03/29/18 Aloe Vera (ALOE VERA) 25 Mg Capsule, 25 MG PO DAILY, CAPSULE 03/29/18 Discontinued Reported Medications Thiamine HCl (B-1) 100 Mg Tablet, 250 MG PO 03/29/18 [b1] No Conflict Check 03/29/18 Iron (IRON) Unknown Strength Tablet, PO QDAY 01/31/18 Discontinued Scripts Ranitidine Hcl (RANITIDINE HCL) 150 Mg Tablet, 1 TAB PO BID, #60 TAB 0 Refills Prov:DESIRAE JOHNSON MD 03/06/18 Nortriptyline Hcl (NORTRIPTYLINE HCL) 10 Mg Cap, 10 MG PO HS, #30 CAP 0 Refills Prov:DESIRAE YIN DO 11/02/17 Albuterol Sulfate (VENTOLIN HFA) 18 Gm Inh, 2 PUFF INH Q4-6H Y for SHORTNESS OF BREATH, #1 INH 0 Refills Prov:DESIRAE YIN DO 11/02/17 Ipratropium/Albuterol Sulfate (IPRAT-ALBUT 0.5-3(2.5) MG/3 ML) 3 Ml Ampul.neb, 3 ML NEB TIDR, #90 INH Prov:DYAN JONES MD 10/26/17 Guaifenesin (MUCINEX) 600 Mg Tablet.er, 600 MG PO BID, #60 TAB Prov:DYAN JONES MD 10/26/17 Fluticasone/Salmeterol (ADVAIR 500-50 DISKUS) 1 Each Disk.w.dev, 1 PUFF IH BID, #3 INHALER 4 Refills Prov:ZAHRA GONZALES MD 03/29/17 Venous Thromboembolism Antithrombotics Is Pt On Any Antithrombotics?: No MONE CLINTON DO Mar 31, 2018 11:10
== END 2018-03-31 12:05 | DRG 435 ==
LOC: ER 14:37 → ICU 17:47
PROVIDERS: ADMIT Internal Medicine; ATTEND Internal Medicine
PROC: 02HV33Z Insertion of Infusion Device into Superior Vena Cava, Percutaneous Approach (ICD-10-PCS; principal; 2018-03-27)
DX: C78.7 Secondary malignant neoplasm of liver and intrahepatic bile duct (principal); K72.00 Acute and subacute hepatic failure without coma; K76.7 Hepatorenal syndrome; R65.11 Systemic inflammatory response syndrome (SIRS) of non-infectious origin with acute organ dysfunction; C18.9 Malignant neoplasm of colon, unspecified; E87.2 Acidosis; N17.9 Acute kidney failure, unspecified; Z51.5 Encounter for palliative care; J44.9 Chronic obstructive pulmonary disease, unspecified; D63.0 Anemia in neoplastic disease; R74.0 Nonspecific elevation of levels of transaminase and lactic acid dehydrogenase [LDH]; R60.0 Localized edema; I10 Essential (primary) hypertension; E11.9 Type 2 diabetes mellitus without complications; Z79.84 Long term (current) use of oral hypoglycemic drugs; Z86.711 Personal history of pulmonary embolism; Z88.0 Allergy status to penicillin; Z87.891 Personal history of nicotine dependence
CPT/HCPCS: 36415; 36416; 36430; 71045; 74176; 76705; 78582; 80202; 81001; 82040; 82140; 82150; 82247; 82310; 82374; 82378; 82435; 82565; 82728; 82800; 82947; 82948; 83540; 83550; 83605; 83690; 83735; 83880; 84075; 84132; 84134; 84155; 84295; 84450; 84460; 84484; 84520; 85014; 85018; 85025; 85379; 85610; 85730; 86850; 86900; 86901; 86920; 87040; 93005; 93306; 94640; 99285; A9540; A9567; J1885; J1940; J2185; J2270; J3010; J3370; J3490; J3535; J7030; J7040; J7050; J7060; P9016; P9017; P9047

== ENCOUNTER 2018-03-31 12:05 | Inpatient (IN) | payer MEDICARE, OTHER ==
[2018-03-28 12:15] VITALS: Wt 91.8 kg
[~2018-03-31 12:05] MED LIST changes: +ALOE25CA PO; +ALPH200T3 PO; +ARGI500T PO; +ASCO-480 PO; +B 12 PO; +BILB100C2 PO; +BLUE5000 PO; +Berberine PO; +CALC-1046 PO; +D3 PO; +FENU500C PO; +FOLI0.8C PO; +GINK30CA PO; +K2 PO; +LEVO500C PO; +MAGN250T34 PO; +POTA99TA10 PO; +POTA99TA6 PO; +RED600CA15 PO; +RESV250C PO; +SELE200T32 PO; +THIA100T6 PO; +UBID100C9 PO; +VITA-175 PO; +VITA-197 PO; +ZINC50TA43 PO; +[UNRECOGNIZED DRUG - CODE] PO; +[UNRECOGNIZED DRUG - CODE] PO; +[UNRECOGNIZED DRUG - OTHER]; +[UNRECOGNIZED DRUG - OTHER] PO; +chlorella PO
[2018-03-31] MEDS ORDERED: FLUSH 10 ML SYR IVP PRN ×2 (12:32→12:35)
[2018-03-31] MEDS ORDERED: MORPHINE SULFATE 30 MG PCA IV PRN ×2 (12:32→13:05)
[2018-03-31] MEDS ORDERED: LORazepam 2 MG/ML VIAL IVP PRN (12:32)
[2018-03-31] MEDS ORDERED: ONDANSETRON 4 MG/2 ML VIAL IVP PRN (12:32)
[2018-03-31] MEDS ORDERED: ALBUTEROL 2.5 MG/3 ML NEB NEB PRN (12:32)
[2018-03-31] MEDS ORDERED: NALOXONE HCL 0.4 MG/ML VIAL IVP PRN (12:32)
[2018-03-31] MEDS ORDERED: oxyCODONE HCL 5 MG CAP PO PRN (12:32)
[2018-03-31] MEDS ORDERED: NORTRIPTYLINE HCL 10 MG CAP PO SCH (12:32)
[2018-03-31 12:42] VITALS: BP 83/48
--- NOTE | 2018-03-31 12:47 | Consultant Pharmacy Review ---
Systems Development Consultant Review Medication Review Do All Mecications have a Diag: Yes Pneumococcal Vaccine HX Pneumo Vac ([id number]): No (NEVER; refuses) HX Pneumo Vac (Pneumovax): No (NEVER; refuses) Comments Regarding the Review Interaction Analysis A = No known interaction C = Monitor therapy X = Avoid combination B = No action needed D = Consider therapy modification Drugs in this analysis: Advair Diskus; Gabapentin; Ipratropium and Albuterol; LORazepam; Morphine (Systemic); Nystop; OxyCODONE; Pamelor; Pepcid; Scopolamine (Systemic); Zofran * Drug-Drug Interactions * X Ipratropium and Albuterol (Ipratropium (Oral Inhalation)) Pamelor ( Anticholinergic Agents) X Ipratropium and Albuterol (Ipratropium (Oral Inhalation)) Scopolamine ( Systemic) (Anticholinergic Agents) D Gabapentin (CUTTER GRINDER OPERATOR Depressants) OxyCODONE D LORazepam (CUTTER GRINDER OPERATOR Depressants) Morphine (Systemic) (Opioid Analgesics) D LORazepam (CUTTER GRINDER OPERATOR Depressants) OxyCODONE D Morphine (Systemic) (CUTTER GRINDER OPERATOR Depressants) OxyCODONE D Morphine (Systemic) (Opioid Analgesics) Pamelor (CUTTER GRINDER OPERATOR Depressants) D Morphine (Systemic) (Opioid Analgesics) Scopolamine (Systemic) (CUTTER GRINDER OPERATOR Depressants) D OxyCODONE Pamelor (CUTTER GRINDER OPERATOR Depressants) D OxyCODONE Scopolamine (Systemic) (CUTTER GRINDER OPERATOR Depressants) C Advair Diskus (Beta2-Agonists) Pamelor (Tricyclic Antidepressants) C Advair Diskus (QTc-Prolonging Agents (Indeterminate Risk and Risk Modifying)) Zofran (QTc-Prolonging Agents (Moderate Risk)) C Advair Diskus (Sympathomimetics) Ipratropium and Albuterol (Sympathomimetics ) C Gabapentin Morphine (Systemic) C Gabapentin (CUTTER GRINDER OPERATOR Depressants) LORazepam (CUTTER GRINDER OPERATOR Depressants) C Gabapentin (CUTTER GRINDER OPERATOR Depressants) Pamelor (CUTTER GRINDER OPERATOR Depressants) C Gabapentin (CUTTER GRINDER OPERATOR Depressants) Scopolamine (Systemic) (CUTTER GRINDER OPERATOR Depressants) C Ipratropium and Albuterol (Anticholinergic Agents) Morphine (Systemic) ( Opioid Analgesics) C Ipratropium and Albuterol (Anticholinergic Agents) OxyCODONE (Opioid Analgesics) C Ipratropium and Albuterol (QTc-Prolonging Agents (Indeterminate Risk and Risk Modifying)) Zofran (QTc-Prolonging Agents (Moderate Risk)) C LORazepam (CUTTER GRINDER OPERATOR Depressants) Pamelor (CUTTER GRINDER OPERATOR Depressants) C LORazepam (CUTTER GRINDER OPERATOR Depressants) Scopolamine (Systemic) (CUTTER GRINDER OPERATOR Depressants) C Pamelor (Anticholinergic Agents) Scopolamine (Systemic) (Anticholinergic Agents) C Pamelor (CUTTER GRINDER OPERATOR Depressants) Scopolamine (Systemic) (CUTTER GRINDER OPERATOR Depressants) C Pamelor (QTc-Prolonging Agents (Indeterminate Risk and Risk Modifying)) Zofran (QTc-Prolonging Agents (Moderate Risk)) C Pamelor (Serotonin Modulators) Zofran (Antiemetics (5HT3 Antagonists)) C Pepcid (QTc-Prolonging Agents (Indeterminate Risk and Risk Modifying)) Zofran (QTc-Prolonging Agents (Moderate Risk)) B Advair Diskus (QTc-Prolonging Agents (Indeterminate Risk and Risk Modifying)) Pepcid (QTc-Prolonging Agents (Indeterminate Risk and Risk Modifying)) B Ipratropium and Albuterol (QTc-Prolonging Agents (Indeterminate Risk and Risk Modifying)) Pepcid (QTc-Prolonging Agents (Indeterminate Risk and Risk Modifying)) B Pamelor (QTc-Prolonging Agents (Indeterminate Risk and Risk Modifying)) Pepcid (QTc-Prolonging Agents (Indeterminate Risk and Risk Modifying)) * Morphine (Systemic) OxyCODONE * Disclaimer: Readers are advised that decisions regarding drug therapy must be based on the independent judgment of the clinician, changing information about a drug (eg, as reflected in the literature and garnetter's most current product information), and changing medical practices. * Terms & Conditions // * Disclaimer// * Privacy Policy * [employer] on [employer] * [employer] on [employer] * [employer] [place] 2018 [employer] and its affiliates and/or licensors. All Rights Reserved. * Top of Form 1 * Bottom of Form 1 DYAN BRYSON Mar 31, 2018 12:47
[2018-03-31] MEDS: GABAPENTIN 300 MG CAP PO SCH ×2 (14:00→21:00)
[2018-03-31] MEDS ORDERED: SCOPOLAMINE 1.5 MG PATCH TD SCH (14:00)
--- NOTE | 2018-03-31 14:39 | ECF H&P BLANK ---
[facility] H&P UPDATE History of Present Illness Chief Complaint Abdominal Pain History of Present Illness 83 Y male presented from Dr Johnson outpt office after found to have BP in 80/ 40 range. Reports abdominal pain 1-2 weeks duration but refused to seek medical attention until pain became intolerable today. Pain is epigastric, radiates to back rated 7-9/10 described as being tied in knots. Found to be anemic, hypotensive, elevated d-dimer, elevated lactic acid, low bicarb. Suspected to be septic but no localizing symptoms apart from abdominal pain. CT abdomen demonstrated R colon thickening, hypodense lesions in liver concerning for metastatic disease. Colonoscopy earlier this year demonstrated 2 very large polyps but had not felt up to recommended colon resection during this interval. 2 units PRBC were given and one unit FFP in ER, 1L NS was given with corresponding increase in BP. After discussion with family patient is being admitted for comfort cares. Prognosis grave. History Problems: (1) COPD (chronic obstructive pulmonary disease) Status: Chronic (2) Essential hypertension Status: Chronic (3) Adenomatous polyp of ascending colon Status: Chronic (4) Pulmonary embolism Status: Chronic (5) Type 2 diabetes mellitus Status: Chronic Home Meds Active Scripts Ranitidine Hcl (RANITIDINE HCL) 150 Mg Tablet, 1 TAB PO BID, #60 TAB 0 Refills Prov:DESIRAE JOHNSON MD 03/06/18 Nortriptyline Hcl (NORTRIPTYLINE HCL) 10 Mg Cap, 10 MG PO HS, #30 CAP 0 Refills Prov:DESIRAE YIN DO 11/02/17 Albuterol Sulfate (VENTOLIN HFA) 18 Gm Inh, 2 PUFF INH Q4-6H Y for SHORTNESS OF BREATH, #1 INH 0 Refills Prov:DESIRAE YIN DO 11/02/17 Losartan/Hydrochlorothiazide (LOSARTAN-HCTZ 100-12.5 MG TAB) 1 Each Tablet, 1 TAB PO QDAY, #30 TAB 0 Refills Prov:DESIRAE YIN DO 11/02/17 Amlodipine Besylate (AMLODIPINE BESYLATE) 10 Mg Tablet, 1 TAB PO QDAY, #30 TAB 0 Refills Prov:DESIRAE YIN DO 11/02/17 Glimepiride (GLIMEPIRIDE) 4 Mg Tablet, 1 TAB PO QDAY, #30 TAB 0 Refills Prov:DESIRAE YIN DO 11/02/17 Gabapentin (GABAPENTIN) 300 Mg Capsule, 1 CAP PO TID, #90 CAPSULE 0 Refills Prov:DESIRAE YIN DO 11/02/17 Metformin Hcl (METFORMIN HCL ER) 500 Mg Tabcr, 2 TAB PO QHS, #60 TAB 0 Refills Prov:DESIRAE YIN 11/02/17 Ipratropium/Albuterol Sulfate (IPRAT-ALBUT 0.5-3(2.5) MG/3 ML) 3 Ml Ampul.neb, 3 ML NEB TIDR, #90 INH Prov:DYAN JONES MD 10/26/17 Guaifenesin (MUCINEX) 600 Mg Tablet.er, 600 MG PO BID, #60 TAB Prov:DYAN JONES MD 10/26/17 Fluticasone/Salmeterol (ADVAIR 500-50 DISKUS) 1 Each Disk.w.dev, 1 PUFF IH BID, #3 INHALER 4 Refills Prov:ZAHRA GONZALES MD 03/29/17 True Metrix Glucose Test Strip (True Metrix Glucose Test Strip) 1 Each Strip, 1 STRIP MC DAILY, #400 BOX 4 Refills Use to test blood sugars 4 times daily Prov:ZAHRA GONZALES MD 11/11/16 Blood Sugar Diagnostic (TRUETEST TEST STRIPS) 1 Each Strip, 1 EACH MC QID, #400 STRIP 4 Refills Prov:ZAHRA GONZALES MD 10/08/15 Reported Medications Iron (IRON) Unknown Strength Tablet, PO QDAY 01/31/18 Allergies: Coded Allergies: Penicillins (Verified Allergy, Severe, hives, 11/30/17) Patient History: FH: dementia MOTHER, , Age:92 FH: diabetes mellitus MOTHER, , Age:92 FH: lung disease FATHER, , Age:88 Hx Smoking: Yes (Smoked x5-10 years) Smoking Status: Former Smoker Exposure to Second Hand Smoke?: No Caffeine Intake: Coffee, Tea Caffeine/Cups Per Day: 1 cup coffee for breakfast, then drinks green or herbal tea Hx Alcohol Use: Yes Hx Substance Use Disorder: No Social Drug Use: Never Review of Systems Unable to obtain 2/2 patient mental status, abdominal tenderness and appears uncomfortable Exam Vital Signs Vital Signs Date Time Temp Pulse Resp B/P (MAP) Pulse Ox O2 Delivery O2 Flow Rate FiO2 03/27/18 18:20 101/53 (69) 03/27/18 17:55 87 11 100 03/27/18 17:00 10.0 03/27/18 14:23 97.4 Room Air General Appearance: Lethargic, Afebrile, jaundiced Neuro: No Gross deficits Eyes: PERRL ENT: Normal (other than noted) Neck: No Masses Cardiovascular: Normal Rhythm & Peripheral Pulses Respiratory: No Respiratory Distress, Clear to Auscultation Chest: No Masses, No Tenderness GI: Liver palpable 2cm below costal margin, tender. : Other (scrotal and penile edema) + fernandez Lymph: No Adenopathy Musculoskeletal: No Weakness/Pain Extremities: Warm, Pulses, Perfused, Edema (severe edema to umbilicus) Integumentary: Skin Intact without Lesion / Mass Psych: Lethargic, appears uncomfortable Medical Decision Making Data Points Weight (Pounds): 202 Weight (Ounces): 5.0 Result Diagram: 03/30/18 0520 03/30/18 1101 Assessment and Plan Problems: (1) Acute liver failure Hospital Course & Plan: He presented with chest pain/upper abdominal pain for about a week and was found to be hypotensive in the surgical clinic. Empiric ertapenem renally dosed. He was anemic. 2 units PRBC transfused in ER, and 2 units overnight. Lactate stable but elevated. Total bilirubin increasing. Creatinine increasing. Blood cultures negative. CXR/UA negative. CT abdomen R colon thickening (can not exclude inflammation), concern for malignancy as well as hypodense lesions on liver concerning for metastasis. He has a h/o PE and has been off Pradaxa for a couple of weeks. V/Q scan without evidence PE. RUQ US shows good flow, there is a 4cm lesion not visualized previously near calos hepatis. Infection seems less likely and more concerned about fulminant liver failure related to the liver lesions. 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 Discussed with family who wish to proceed with comfort care and hospice. (2) Wehte-cl-gneuiqi kidney injury Hospital Course & Plan: Possibly from hypotension exacerbated by anemia. UA bland sediment, BL Cr 1.1-1.2. UOP decreased, a trial of 20mg IV Lasix with Levophed and albumin infusion 25% x 2 doses did help with diuresis, but creatinine increased. Concerned about hepatorenal syndrome. (3) Leukocytosis Hospital Course & Plan: Elevated but stable. Post empiric antibiotic therapy, likely this was reactive related to multiorgan failure. (4) Lactic acid acidosis Hospital Course & Plan: Stable but elevated. Rapid proliferation of liver mets is likely causing. (5) Hypotension Hospital Course & Plan: Patient transition to comfort care, pressors stopped and focus on comfort therapies. (6) Essential hypertension Status: Chronic Hospital Course & Plan: Hold home amlodipine and losartan/HCTZ. Comfort cares. (7) COPD (chronic obstructive pulmonary disease) Status: Chronic Hospital Course & Plan: Home inhaler regimen PRN for comfort. (8) Adenomatous polyp of ascending colon Status: Chronic Hospital Course & Plan: Found earlier this year on colonoscopy, concern for metastatic malignancy given CT findings in liver. CEA 188 likely GI malignancy. 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 (9) Anemia Hospital Course & Plan: Likely R colon malignancy, heme positive FOBT previously. (10) Elevated d-dimer Hospital Course & Plan: Previously Dx with PE in Oct 2017 prescribed Pradaxa, which finished a couple weeks ago. V/Q scan was negative for PE. (11) Transaminitis Hospital Course & Plan: Likely from hypotension and exacerbated by liver mets. T edwin/INR/alk phos are also elevated. No ductal dilatation noted on CT or US. (12) Edema of extremities Status: Chronic Hospital Course & Plan: 3rd spacing from poor oncotic pressure, given albumin. Unable to diurese, transition to comfort cares. Venous Thromboembolism Antithrombotics Is Pt On Any Antithrombotics?: No Exam Sepsis Risk: No Definite Risk Patient requires residential for End of Life Care/Comfort Care and is ready for admission to Extended Care. Any change in condition is described below. MONE CLINTON DO Mar 31, 2018 14:39
[2018-03-31] MEDS: MORPHINE 2 MG/ML SYR IVP PRN ×2 (15:33→18:59)
[2018-03-31] MEDS: SALMETEROL/FLUTIC 500/50 1 INH INH SCH (18:00)
[2018-03-31] MEDS: ALBUTEROL/IPRATROPIUM 3 ML NEB NEB SCH (18:15)
[2018-03-31] MEDS: FAMOTIDINE(*) 20MG/50ML PREMIX 50 ML IVPB SCH (21:00)
[2018-03-31] MEDS: NYSTATIN 100,000 U/GM PWD 15GM TP SCH (21:00)
[2018-04-01] MEDS: MORPHINE 2 MG/ML SYR IVP PRN ×2 (01:07→06:08)
[2018-04-01] MEDS: SALMETEROL/FLUTIC 500/50 1 INH INH SCH (05:43)
[2018-04-01] MEDS: ALBUTEROL/IPRATROPIUM 3 ML NEB NEB SCH (05:43)
[2018-04-01] MEDS: GABAPENTIN 300 MG CAP PO SCH (09:00)
[2018-04-01] MEDS: FAMOTIDINE(*) 20MG/50ML PREMIX 50 ML IVPB SCH (09:00)
[2018-04-01] MEDS: NYSTATIN 100,000 U/GM PWD 15GM TP SCH (09:00)
--- NOTE | 2018-04-01 10:08 | Death Summary ---
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 Hospital Course Patient was admitted to the [facility] at [facility] for comfort care/end-of-life care. He was given IV analgesics, anxiolytics, antiemetics as needed for noxious symptoms. His condition continued to deteriorate. He was found without spontaneous respirations or heart tones and pronounced at 0958hrs on 04/01/18. Copies to: QUANG DENISE DO Medical Records to be sent: Discharge Summary, History and Physical, Summary RHONDA JONES MD Apr 01, 2018 10:08
== END 2018-04-01 09:58 | disposition expired | DRG 951 ==
LOC: ECF 12:05
PROVIDERS: ADMIT Internal Medicine; ATTEND Internal Medicine
DX: Z51.5 Encounter for palliative care (principal); C78.7 Secondary malignant neoplasm of liver and intrahepatic bile duct; N17.9 Acute kidney failure, unspecified; I10 Essential (primary) hypertension; J44.9 Chronic obstructive pulmonary disease, unspecified; E11.9 Type 2 diabetes mellitus without complications; Z86.711 Personal history of pulmonary embolism; Z88.0 Allergy status to penicillin; Z87.891 Personal history of nicotine dependence; Z79.84 Long term (current) use of oral hypoglycemic drugs
CPT/HCPCS: J2060; J2270